=== PATIENT | male | born 1960 | race Caucasian/White ===

== ENCOUNTER → 2020-12-08 14:57 | Outpatient (CLI) | payer MEDICARE, MEDICAID, SELFPAY ==
--- NOTE | 2020-12-08 14:58 | CT_ITS ---
PROCEDURE: CT SOFT TISSUE NECK WO CON CLINICAL HISTORY: swollen neck Lt sided neck swelling and redness Hx of throat cancer back in 2010 COMPARISON: No exams were available for comparison TECHNIQUE: Oral Contrast: None IV Contrast: None Axial images obtained with sagittal and coronal reformats. All CT scans at the facility use one or more dose reduction, viz: automated exposure control, ma/kV adjustment per patient size (including targeted exams where dose is matched to indication, i.e. head), or iterative reconstruction technique. FINDINGS: There are no previous exams available for comparison. History is given of having prior throat cancer. The nasopharynx has an unremarkable appearance. Surgical clips are present in the left parapharyngeal region there is a small nodular density in the left parapharyngeal area medial to 1 of the clips. This area measures approximately 9 mm and is in the region of the left submandibular bed. It appears that the submandibular gland on the left has been removed. The epiglottis and glottic region have an unremarkable appearance. Subglottic area also appears unremarkable. Numerous small surgical clips are present in the left neck lateral to the cricoid and thyroid cartilage within left sternocleidomastoid region and lateral to the thyroid gland on the left. There is defect within the subcutaneous tissues in the left neck from the previous surgery. There are few scattered small cervical nodes within the neck. IMPRESSION: Evaluation of the neck is somewhat limited without IV contrast and without the value of old films for comparison. There are postsurgical changes with prior submandibular gland removal on the left. There is some minimal nodularity noted in the submandibular bed which could be due to small lymph node or some scarring. Comparison with old films would be helpful for further determination. Would suggest 3 month follow-up without and with contrast. No evidence of abscess or other significant anomaly. No other significant anomalies are evident. Dictated by: Emiliano Juarez MD 12/09/2020 11:31 Emiliano Juarez MD in [place] 12/09/2020 11:31
== END ==
PROVIDERS: PCP Family Medicine; Visit Provider Family Medicine
DX: R13.10 Dysphagia, unspecified (principal); R22.1 Localized swelling, mass and lump, neck
CPT/HCPCS: 70490

== ENCOUNTER 2020-12-14 11:42 | Day surgery (SDC) | payer MEDICARE, MEDICAID, SELFPAY ==
[2020-12-11 14:54] VITALS: BMI 41.0
[2020-12-14 12:55] LABS: Coronavirus 19 IgG Antibody Negative (Negative); Coronavirus 19 IgM Antibody Negative (Negative)
[2020-12-14 13:28] VITALS: BP 121/71; PULSE 74; RESP 18; TEMP 36.2; O2SAT 97
[2020-12-14 13:54] VITALS: O2SAT 97
--- NOTE | 2020-12-14 13:55 | P.PN_ITS ---
[facility] Anesthesia Checklist - Patient Identification Patient Identification: Arm Band - Structural Data Planned Operative Procedure/s: EGD Consent for Planned Operative Procedure(s) Verified: Yes - Cardiovascular Assessment Heart Sounds: S1 & S2 Pulse Strength: Baseline Pulse Rhythm: Regular Peripheral Edema: No - Neurological Assessment Level of Consciousness: Awake - Anesthesia Plan Anesthesia Risk discussed: Yes Anesthesia Plan: Verified ASA Class: II Anesthesia Type: MAC [facility] History I have reviewed the patient's past medical history: Yes Medical History: Reports:: Cancer (throat), Chronic Obstructive Pulmonary Disease (COPD), Gall Bladder Disease, Hyperlipidemia, Hypertension Denies:: Diabetes Mellitus Type 1, Diabetes Mellitus Type 2, Internal Pacemaker, MRSA, Seizures *Have you ever received a pneumonia vaccine?: No *Have you received a flu vaccine this season?: Yes Other Medical History: Reports: Arthritis Anesthesia experience/problems:: Nausea Other Surgeries: Yes: Appendectomy, Cancer Surgery. No: Pacemaker Amputation: No Fractures: No - *Social History Smoking Status: Never smoker Alcohol Intake: never Substance Use Type: denies use *Occupational Status:: disabled Housing: house *Travel in the last 8 weeks: None Family Hx:: No significant family history
--- NOTE | 2020-12-14 14:49 | HMH.PROC ---
[facility] Procedure Note Procedure Note:: Upper Endoscopy Procedure Report: Esophagogastroduodenoscopy with cold snare polypectomy, cold biopsies and TTS balloon dilation Endoscopost: Fahad Curry II, MD Referring Physician: Ismael Sheridan MD Date of Procedure: December 14, 2020 Equipment: Olympus GIF 190 standard upper endoscope Sedation: MAC sedation Indications: Mr. Barnett is a 60-year-old gentleman with throat tightness, globus sensation and some dysphagia. The patient did have stage III throat cancer and had 21 radiation treatments. He feels tightness on the left side of his throat. He also has had dyspepsia with some epigastric abdominal discomfort, bloating and moderate belching. He reports heartburn and reflux. His symptoms have not been controlled with pantoprazole or other PPI therapy. He does report some early satiety but no nausea. He has been taking a number of antacids (including Tums) and has had some intermittent constipation. EGD is performed for further evaluation. Procedure: Prior to the procedure, a history and physical exam was performed, and patient's medications and allergies were reviewed. The risks, benefits and alternatives of the sedation and procedure were discussed with the patient. All questions were answered and informed consent was obtained. The patient was brought to the procedure room. Patient identification and proposed procedure were verified by the physician and the nurse. The patient was placed in a left lateral decubitus position and the scope was passed under direct vision. Throughout the procedure, the patient's blood pressure, pulse, and oxygen saturations were monitored continuously. The upper GI endoscopy was accomplished without difficulty. The patient tolerated the procedure well. Findings: The scope was passed directly into the upper esophagus and advanced to the third portion of the duodenum. Within the second portion of the duodenum was a 6 mm flat polyp that was contralateral to the ampulla in the second portion and this was removed via cold snare polypectomy. The scope was withdrawn through a normal duodenal bulb and pylorus into the stomach. There was bile reflux with linear reactive gastropathy of the antrum and body of the stomach. The remainder of the upper body and fundus of the stomach were grossly normal. Upon retroflexion there was a small 1 to 2 cm hiatal hernia. 2 biopsies were taken in the antrum and along the lesser curvature for histology to rule out gastritis and/or H pylori. The scope was then withdrawn into the esophagus. There was 2 tongues of salmon-colored mucosa that were biopsied to rule out short segment Manuel's esophagus. There was no evidence of reflux esophagitis or strictures. There were strong tertiary contractions and evidence of moderate esophageal dysmotility. The entire esophagus was dilated to 60 Peruvian/20 mm with a TTS hydrostatic balloon. There was mild resistance at the cricopharyngeus (cricopharyngeal spasm). The remainder of the esophageal mucosa was normal. Impression: 1. Cricopharyngeal spasm status post dilation to 20 mm 2. Nonerosive GERD with possible short segment Manuel's esophagus, esophageal dysmotility and small 1 to 2 cm hiatal hernia 3. Duodenal polyp (6 mm and second portion of duodenum contralateral to ampulla) 4. Bile reflux with moderate linear reactive gastropathy Plan: I will follow-up the biopsies. The patient does have functional GERD with esophageal dyskinesia and cricopharyngeal spasm. We will discuss additional dietary measures and treatment options. The patient also has some functional dyspepsia. He may benefit from treatment of his obstipation and possibly promotility therapy versus treatment for visceral sensitivity. Lastly, if the biopsies do show Manuel's esophagus or the duodenal polyp is adenomatous, we will need to continue with surveillance EGD again in 2 years.
[2020-12-14 14:50] VITALS: BP 98/59; PULSE 76; RESP 12; TEMP 36.2; O2SAT 92
[2020-12-14 15:00] VITALS: BP 106/68; PULSE 79; RESP 16; O2SAT 96
[2020-12-14 15:10] VITALS: BP 122/68; PULSE 77; RESP 16; O2SAT 97
[2020-12-14 15:20] VITALS: BP 115/70; PULSE 69; RESP 16; TEMP 36.2; O2SAT 98
== END 2020-12-14 15:26 | disposition home or self-care (01) ==
LOC: OUTP 11:43
PROVIDERS: PCP Family Medicine; Visit Provider Internal Medicine Gastroenterology
PROC: 0DJ08ZZ Inspection of Upper Intestinal Tract, Via Natural or Artificial Opening Endoscopic (ICD-10-PCS; CPT 43235; principal; 2020-12-14 14:00)
DX: J39.2 Other diseases of pharynx (principal); K21.9 Gastro-esophageal reflux disease without esophagitis; K22.4 Dyskinesia of esophagus; K44.9 Diaphragmatic hernia without obstruction or gangrene; K31.7 Polyp of stomach and duodenum; K31.9 Disease of stomach and duodenum, unspecified; I10 Essential (primary) hypertension; E78.5 Hyperlipidemia, unspecified; M19.90 Unspecified osteoarthritis, unspecified site; Z85.01 Personal history of malignant neoplasm of esophagus; J44.9 Chronic obstructive pulmonary disease, unspecified; Z87.19 Personal history of other diseases of the digestive system
CPT/HCPCS: 43239; 43249; 43251; 36415; 86328; 88305; C1726

== ENCOUNTER → 2021-11-08 12:36 | Outpatient (CLI) | payer MEDICARE, MEDICAID, SELFPAY ==
--- NOTE | 2021-11-08 12:53 | CT_ITS ---
FINAL REPORT TECHNIQUE: Thin section axial CT images were obtained through the neck after intravenous contrast administration. Coronal and sagittal reformats were also obtained. This study was performed with techniques to keep radiation doses as low as reasonably achievable (ALARA). Individualized dose reduction techniques using automated exposure control or adjustment of mA and/or kV according to the patient''s size were employed. CLINICAL HISTORY: hx of throat cancer COMPARISON: December 08, 2020 FINDINGS: The nasopharynx, oropharynx, hypopharynx and larynx are unremarkable. Again seen are postoperative changes in the left neck. The left submandibular gland has been resected. Small lymph nodes are seen and are stable. There is no new mass or adenopathy. The thyroid gland is unremarkable. The visualized sinuses are clear. There is no acute osseous abnormality. IMPRESSION: Stable findings. No new mass or adenopathy. Reviewed, Interpreted and Dictated by Freddie Carvajal III, MD Transcribed by Young Parmar Authenticated by Freddie Carvajal III, MD on 11/09/2021 09:31:39 AM [facility]
[2021-11-08 13:09] LABS: Anion Gap 10.6 mEq/L (5-15); Blood Urea Nitrogen 16 mg/dl (9-20); Calcium 8.8 mg/dl (8.4-10.2); Carbon Dioxide 33 mmol/L (22.0-30.0); Chloride 100 mmol/L (98-107); Estimated Glomerular Filt Rate 62 ml/min (>60); GFR (African American) 75 ML/MIN (>60); Glucose 93 mg/dl (74-100); Potassium 3.6 mmoL/L (3.5-5.1); Sodium 140 mmol/L (136-145)
== END ==
PROVIDERS: PCP Family Medicine; Visit Provider Family Medicine
DX: Z01.818 Encounter for other preprocedural examination (principal); M54.2 Cervicalgia; Z85.89 Personal history of malignant neoplasm of other organs and systems
CPT/HCPCS: 36415; 70491; 80048; Q9967

== ENCOUNTER → 2022-05-30 07:00 | Outpatient (CLI) | payer MEDICARE, MEDICAID, SELFPAY ==
[2022-05-30 21:00] LABS: Amphetamine/Metha Screen,Urine Negative ng/ml (<1000)
[2022-05-30 21:02] LABS: Barbiturates Screen,Urine Negative ng/ml (<200)
[2022-05-30 21:03] LABS: Benzodiazepines Screen,Urine Negative ng/ml (<200)
[2022-05-30 21:04] LABS: Cocaine Screen,Urine Negative ng/ml (<300)
[2022-05-30 21:05] LABS: Methadone Screen,Urine Negative ng/ml (<300)
[2022-05-30 21:06] LABS: Opiate Screen,Urine Negative ng/ml (<300); Phencyclidine Screen,Urine Negative ng/ml (<25)
[2022-05-30 21:49] LABS: Cannabinoid Screen,Urine Positive ng/ml (<50)
== END ==
PROVIDERS: PCP Family Medicine; Visit Provider Family Medicine
DX: M54.2 Cervicalgia (principal)
CPT/HCPCS: 80305

== ENCOUNTER 2022-07-04 12:17 | Emergency (ER) | payer MEDICARE, MEDICAID, SELFPAY ==
[2022-07-04] VITALS (7 sets, daily range): BP systolic 112–166; BP diastolic 64–94; PULSE 56–70; RESP 18; TEMP 36.7–36.8; O2SAT 98–99; BMI 39.2
--- NOTE | 2022-07-04 12:19 | HMH.EDGENADL ---
Discharge Plan Disposition Patient Disposition: Home, Self-Care Condition: Good Chief Complaint: Abdominal Pain Prescriptions Prescriptions: No Action aspirin [Adult Aspirin Regimen] 81 mg tablet,delayed release (DR/EC) 81 mg PO DAILY hydrochlorothiazide 25 mg tablet 25 mg PO DAILY Qty: 90 3RF pantoprazole 40 mg tablet,delayed release (DR/EC) 40 mg PO DAILY Qty: 90 3RF amlodipine 5 mg tablet 5 mg PO DAILY Qty: 90 3RF Linzess 145 mcg capsule 145 mcg PO DAILY Qty: 90 3RF furosemide 40 mg tablet 40 mg PO DAILY PRN (Reason: edema) Qty: 90 3RF potassium chloride 10 mEq tablet extended release 10 meq PO DAILY Qty: 60 0RF lisinopril 40 mg tablet See Rx Instructions .ROUTE .COMPLEX Qty: 180 3RF Dose Instruction: TAKE TWO TABLETS DAILY Rx Instructions: TAKE TWO TABLETS DAILY metoclopramide HCl 10 mg tablet 10 mg PO HS Qty: 90 3RF hydrocodone-acetaminophen 7.5-325 mg tablet 1 tab PO BID PRN (Reason: pain) Qty: 60 0RF metoprolol tartrate 100 mg tablet See Rx Instructions .ROUTE .COMPLEX Qty: 180 3RF Dose Instruction: TAKE 1 TABLET BY MOUTH 2 TIMES A DAY Rx Instructions: TAKE 1 TABLET BY MOUTH 2 TIMES A DAY atorvastatin 40 mg tablet See Rx Instructions .ROUTE .COMPLEX Qty: 90 3RF Dose Instruction: TAKE 1 TABLET BY MOUTH EVERY DAY Rx Instructions: TAKE 1 TABLET BY MOUTH EVERY DAY Referrals Follow up/Referrals: Pee Sheridan MD [Primary Care Provider] - See instructions Clinical Impressions Clinical Impression: Abdominal pain Instructions Patient Instructions: DI for Acute Abdominal Pain Discharge ED Provider: Riki Kent Adult HPI General Chief complaint: Abdominal Pain Stated complaint: Severe abdominal pain Time Seen by Provider: 07/04/22 12:19 History of Present Illness HPI narrative: 62-year-old male, history of abdominal pain, Manuel's esophagus he reports 1 episode of bowel obstruction for which he was hospitalized previously. He has had prior cholecystectomy, denies any other abdominal surgeries. He presents with diffuse abdominal pain most notable in the periumbilical region. He saw his PCP earlier today and also relates symptoms of constipation, and excessive gas. He was sent to the emergency department by PCP for further evaluation and recommended CT scan. He denies fevers, chills, nausea, vomiting, flank pain, dysuria, diarrhea, melena or hematochezia or any other symptoms at this time he is on Linzess routinely and has not noticed improvement Related Data Home Medications Medication Instructions Recorded Confirmed aspirin 81 mg tablet,delayed 81 mg PO DAILY heart 03/30/20 07/04/22 release (Adult Aspirin Regimen) Previous Rx's Medication Instructions Recorded furosemide 40 mg tablet 40 mg PO DAILY PRN edema #90 tabs 09/01/21 potassium chloride 10 mEq 10 meq PO DAILY Supplement #60 tabs 09/01/21 tablet,extended release amlodipine 5 mg tablet 5 mg PO DAILY #90 tabs 10/22/21 hydrochlorothiazide 25 mg tablet 25 mg PO DAILY Fluid #90 tabs 11/22/21 pantoprazole 40 mg tablet,delayed 40 mg PO DAILY GERD #90 tabs 11/22/21 release lisinopril 40 mg tablet See Rx Instructions .Route 11/23/21 .COMPLEX #180 tabs metoclopramide HCl 10 mg tablet 10 mg PO HS #90 tabs 12/28/21 hydrocodone 7.5 mg-acetaminophen 1 tab PO BID PRN pain #60 tabs 05/23/22 325 mg tablet linaclotide 145 mcg capsule 145 mcg PO DAILY #90 caps 05/23/22 (Linzess) atorvastatin 40 mg tablet See Rx Instructions .Route 07/04/22 .COMPLEX #90 tabs metoprolol tartrate 100 mg tablet See Rx Instructions .Route 07/04/22 .COMPLEX #180 tabs Allergies Allergy/AdvReac Type Severity Reaction Status Date / Time No Known Allergies Allergy Verified 07/04/22 11:07 [facility] Medical History Back pain Chronic pain Erosive (osteo)arthritis History of head an
[2022-07-04 12:27] LABS: Microscopic, Urine URINE MICROSCOPIC (MICROSCOPIC)
[2022-07-04 12:28] LABS: Appearance,Urine CLEAR (Clear); Bilirubin,Urine Negative (Negative); Blood, Urine Negative (Negative); Color,Urine YELLOW (Yellow); Glucose,Urine (UA) Negative (Negative); Ketones,Urine Negative (Negative); Leukocyte Esterase,Urine Negative (Negative); Nitrate,Urine Negative (Negative); Protein,Urine Negative (Negative); Specific Gravity, Urine 1.025 (1.005-1.030); Urobilinogen,Urine 0.2 EU/dl (0.2)
--- NOTE | 2022-07-04 12:28 | CT_ITS ---
FINAL REPORT TECHNIQUE: Oral and IV contrast enhanced exam CLINICAL HISTORY: post-op pain, epi gastric pain hx of throat cancer FINDINGS: Abdomen: No acute density is seen within the lung bases. 13 mm posterior left mid renal cyst. Status post cholecystectomy. Remaining solid abdominal organs are unremarkable. No bowel obstruction is present. Mild diverticulosis. There is no free air. No fluid collection is seen. There is no adenopathy. Pelvis: The appendix is normal. No bowel wall thickening is present. There is no free fluid. No pelvic mass is seen. Moderate prostate enlargement. IMPRESSION: Unremarkable exam Reviewed, Interpreted and Dictated by Corie Guerra MD Transcribed by Young Parmar Authenticated and [facility]
[2022-07-04 12:42] LABS: Basophils # 0.1 K/mm3 (0-0.2); Basophils % 0.8 % (0.1-2.0); Eosinophils # 0.2 K/mm3 (0.0-0.4); Eosinophils % 3.6 % (0.1-12.0); Hematocrit 46.2 % (42.0-52.0); Hemoglobin 15.5 g/dL (14.1-18.0); Lymphocytes # 1.6 K/mm3 (0.7-4.5); Lymphocytes % 24.2 % (10-50); Mean Corpuscular HGB Conc 33.4 g/dL (31.8-35.4); Mean Corpuscular Hemoglobin 29.3 pg (27.0-31.2); Mean Corpuscular Volume 87.7 fl (80-94); Monocytes # 0.4 K/mm3 (0.1-1.0); Monocytes % 5.6 % (1.7-9.3); Neutrophils # 4.4 K/mm3 (1.8-7.8); Neutrophils % 65.6 % (37.0-80.0); Platelet Count 231 K/mm3 (142-424); Red Blood Count 5.27 M/mm3 (4.60-6.20); White Blood Count 6.7 K/mm3 (4.8-10.8)
[2022-07-04 12:42] LABS: Bacteria,Urine Trace /lpf
[2022-07-04 12:51] LABS: Chloride 102 mmol/L (98-107); Potassium 4.1 mmoL/L (3.5-5.1); Sodium 141 mmol/L (136-145)
[2022-07-04 12:54] LABS: Alanine Aminotransferase 31 U/L (12-78); Albumin Level 4.4 g/dl (3.5-5.0); Albumin/Globulin Ratio 1.4 (1.1-1.8); Alkaline Phosphatase 126 U/L (38-126); Anion Gap 11.1 mEq/L (5-15); Aspartate Amino Transferase 42 U/L (17-59); Bilirubin,Total 0.6 mg/dl (0.2-1.3); Blood Urea Nitrogen 17 mg/dl (9-20); Calcium 9.2 mg/dl (8.4-10.2); Carbon Dioxide 32 mmol/L (22.0-30.0); Estimated Glomerular Filt Rate 56 ml/min (>60); GFR (African American) 68 ML/MIN (>60); Globulin 3.1 g/dL (1.3-3.2); Glucose 96 mg/dl (74-100); Lipase 76 U/L (23-300); Total Protein,Serum 7.5 g/dl (6.3-8.2)
--- NOTE | 2022-07-04 13:17 | PC.NURSE ---
PT TO CT AT THIS TIME
--- NOTE | 2022-07-04 13:28 | PC.NURSE ---
Pt return from CT via wheelchair
--- NOTE | 2022-07-04 13:32 | PC.NURSE ---
checked on pt at this time, pt requested TV remote-remote provided for pt. Pt sitting up in bed, states no other needs. Call light hooked to bedrail within reach of pt, pt notified where I was placing his call light if he needed it.
--- NOTE | 2022-07-04 14:19 | PC.NURSE ---
AT GOING OVER RESULTS
== END 2022-07-04 14:25 | disposition home or self-care (01) ==
PROVIDERS: Emergency Provider Emergency Medicine; PCP Family Medicine
DX: K59.00 Constipation, unspecified (principal); I10 Essential (primary) hypertension; M54.9 Dorsalgia, unspecified; G89.29 Other chronic pain; M19.90 Unspecified osteoarthritis, unspecified site; K22.70 Barrett's esophagus without dysplasia; E66.9 Obesity, unspecified; Z79.82 Long term (current) use of aspirin; Z79.899 Other long term (current) drug therapy; Z85.841 Personal history of malignant neoplasm of brain; Z85.89 Personal history of malignant neoplasm of other organs and systems; Z68.35 Body mass index [BMI] 35.0-35.9, adult; Z96.652 Presence of left artificial knee joint
CPT/HCPCS: 74177; 80053; 81001; 83690; 85025; 99285; Q9967

== ENCOUNTER → 2023-01-09 08:26 | Outpatient (POV) | payer MEDICARE, MEDICAID, SELFPAY ==
--- NOTE | 2023-01-09 08:40 | EXP.PAIN.OV ---
HPI Data of Consult Patient: new to practice Consult date: 01/09/23 Requesting Physician: Dianne Ricardo APRN Primary Care Provider: Pee Sheridan MD Consult Narrative Reason for consult: Low back pain, bilateral knee pain History of present illness: Mr. Barnett is a 62 year old male who presents today as a new patient. He is a referral from Dr. Sheridan's office. Today he rates his pain an 8 out of 10. Patient states his pain is all in his low back with radiating symptoms into his lower extremities with the right worse than the left. He also states he has pain along his bilateral ribs at the mid to low back region. He also states he has bilateral knee pain and has had his left knee replaced in the past. Patient does describe his pains as an aching, throbbing sensation with sharp jabbing sensations with certain movements. Patient states this has been going on for years and progressively worsened over time. 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 He does also state that his pain is worse with increased activity and that he will have catching sensations with certain movements that can actually almost make him fall. He does state his pain interferes with his ability to sleep at night. He frequently changes multiple positions to help relieve the knot sensations that are common at night. Patient denies any recent imaging. He states he has not had any back surgery, injection history, physical therapy or chiropractor. Patient has tried [id number] Tylenol and ibuprofen along with heat and ice and topicals with no additional relief. Patient is currently managed with Carlotta 7.5 mg twice a day from his primary care doctor. Patient denies any side effects from this medication. He states it only takes the edge off. His Ruebns is [id number]. Its been reviewed and appropriate. CC: Dianne Ricardo APRN [facility] Disclaimer: The information contained in this section may have been updated after the patient was seen, as this information can be updated by other users. Medical History Back pain Chronic pain Erosive (osteo)arthritis History of head and neck cancer Hypertension Obesity (BMI 35.0-39.9 without comorbidity) Social History Smoking Status: Never smoker second hand exposure: Yes alcohol intake: former substance use type: marijuana current occupational status: disabled Travel in the last 8 weeks: None household members: none housing: apartment current occupational exposures/hazards: No caffeine: Yes Review of Systems Review of Systems Review of systems:: pertinent systems reviewed and negative unless documented below Review of systems (narrative): Review of Systems: General: No recent weight changes, no fever, no sleep disturbances Respiratory: No cough, no shortness of air, no recurring pulmonary infections Cardiovascular/peripheral vascular: No chest pain, no palpitations, no edema, no shortness of breath Gastrointestinal: No new onset incontinence, normal bowel movements reported Genitourinary: No new onset incontinence Musculoskeletal: Low back pain, bilateral knee pain Psychiatric: [Normal mood/affect] Neurological: [Denies weakness in extremities], [denies balance issues] Meds Home Medications and Allergies Home Medications Medication Instructions Recorded Confirmed Type aspirin 81 mg tablet,delayed 81 mg PO DAILY heart 03/30/20 01/03/23 History release (Adult Aspirin Regimen) furosemide 40 mg tablet 40 mg PO DAILY PRN edema #90 tabs 09/01/21 01/03/23 Rx potassium chloride 10 mEq 10 meq PO DAILY Supplement #60 tabs 09/01/21 01/03/23 Rx tablet,extended release linaclotide 145 mcg capsule 145 mcg PO DAILY #90 caps 05/23/22 01/03/23 Rx (Linzess) atorvastatin 40 mg tablet See Rx Instructions .
[2023-01-09 08:51] VITALS: BP 152/83; PULSE 65; RESP 18; O2SAT 97; BMI 41.3
== END | disposition home or self-care (01) ==
PROVIDERS: PCP Family Medicine; Visit Provider Nurse Practitioner Family
DX: M54.16 Radiculopathy, lumbar region (principal); M54.50 Low back pain, unspecified; M25.561 Pain in right knee; M25.562 Pain in left knee; G89.29 Other chronic pain
CPT/HCPCS: 99202; G0463

== ENCOUNTER → 2023-01-09 09:08 | Outpatient (CLI) | payer MEDICARE, MEDICAID, SELFPAY ==
--- NOTE | 2023-01-09 09:18 | XR_ITS ---
FINAL REPORT TECHNIQUE: 5 views were obtained. CLINICAL HISTORY: BACK PAIN FINDINGS: There is no fracture present. Vertebral bodies are normal height. There is no malalignment. There is anterior osteophyte formation most evident at the T12-L1, L1-L2, and L3-L4 levels. IMPRESSION: No acute process. Reviewed, Interpreted and Dictated by Robert Herrera MD Transcribed by Sally Read Authenticated and [facility]
--- NOTE | 2023-01-09 09:18 | XR_ITS ---
FINAL REPORT TECHNIQUE: Two views were obtained CLINICAL HISTORY: BACK PAIN FINDINGS: There is no fracture present. Vertebrae are normal height. There is no malalignment. There is prominent anterior osteophyte formation in the midthoracic spine. IMPRESSION: Hypertrophic changes in the midthoracic spine. Reviewed, Interpreted and Dictated by Robert Herrera MD Transcribed by Sally Read Authenticated and [facility]
== END ==
PROVIDERS: PCP Family Medicine; Visit Provider Anesthesiology
DX: M54.6 Pain in thoracic spine (principal); M54.50 Low back pain, unspecified
CPT/HCPCS: 72072; 72110; 99202; G0463

== ENCOUNTER → 2023-02-09 20:16 | Outpatient (CLI) | payer MEDICARE, MEDICAID, SELFPAY ==
[2023-02-09 19:10] LABS: Basophils % 0.3 % (0.1-2.0); Eosinophils # 0.6 K/mm3 (0.0-0.4); Eosinophils % 5.9 % (0.1-12.0); Hematocrit 43.2 % (42.0-52.0); Hemoglobin 14.5 g/dL (14.1-18.0); Lymphocytes # 1.8 K/mm3 (0.7-4.5); Lymphocytes % 19.2 % (10-50); Mean Corpuscular HGB Conc 33.6 g/dL (31.8-35.4); Mean Corpuscular Volume 86.3 fl (80-94); Mean Platelet Volume 8.5 fl (7.4-10.4); Monocytes # 0.6 K/mm3 (0.1-1.0); Monocytes % 6.7 % (1.7-9.3); Neutrophils # 6.5 K/mm3 (1.8-7.8); Neutrophils % 67.9 % (37.0-80.0); Platelet Count 210 K/mm3 (142-424); White Blood Count 9.5 K/mm3 (4.8-10.8)
[2023-02-09 19:29] LABS: Chloride 97 mmol/L (98-107)
[2023-02-09 19:30] LABS: Potassium 3.2 mmoL/L (3.5-5.1); Sodium 141 mmol/L (136-145)
[2023-02-09 19:32] LABS: Alanine Aminotransferase 42 U/L (12-78); Alkaline Phosphatase 112 U/L (38-126); Aspartate Amino Transferase 40 U/L (17-59); Bilirubin,Total 0.6 mg/dl (0.2-1.3); Blood Urea Nitrogen 20 mg/dl (9-20); Estimated Glomerular Filt Rate 51 ml/min (>60); GFR (African American) 62 ML/MIN (>60)
[2023-02-09 19:33] LABS: Albumin Level 4.4 g/dl (3.5-5.0); Albumin/Globulin Ratio 1.6 (1.1-1.8); Anion Gap 13.2 mEq/L (5-15); Calcium 9.3 mg/dl (8.4-10.2); Carbon Dioxide 34 mmol/L (22.0-30.0); Globulin 2.7 g/dL (1.3-3.2); Glucose 78 mg/dl (74-100); Total Protein,Serum 7.1 g/dl (6.3-8.2)
[2023-02-09 21:01] LABS: Prostate Specific Ag Screen 4.2 ng/ml (0.0-4.0)
== END ==
PROVIDERS: PCP Family Medicine; Visit Provider Family Medicine
DX: Z12.5 Encounter for screening for malignant neoplasm of prostate (principal); G89.29 Other chronic pain; M54.40 Lumbago with sciatica, unspecified side; N28.9 Disorder of kidney and ureter, unspecified
CPT/HCPCS: 80053; 85025; G0103

== ENCOUNTER → 2023-02-10 08:57 | Outpatient (POV) | payer MEDICARE, MEDICAID, SELFPAY ==
--- NOTE | 2023-02-10 09:12 | A.OFFVIS_ITS ---
[facility] Pain Management SOAP Note Subjective:: Patient is a pleasant 63-year-old male who presents today for MRI denial. We are currently treating the patient for mid/low back pain, bilateral knee pain. Today he rates his pain a 9 out of 10. Patient states that he has been experiencing worsening pain and that he went to his primary care doctor who did run labs and found that he had elevated liver enzymes. Patient states that he did try and get him in a GI practice however it has been almost a month and he still not heard anything. Patient states he did go back to his primary care yesterday who did send a new referral for another GI doctor in [place]. Patient does state that he has been experiencing continued pain in his mid to low back and radiating into his lower extremities. Patient does describe this as a aching, throbbing sensation with occasional sharp shooting pains. He is currently managed with [place] 7.5 mg twice a day from his primary care doctor. Patient denies any side effects from this medication. At our last visit he was prescribed tizanidine 4 mg at bedtime and he does state that it did provide additional improvement. He is requesting a refill at today's visit. His Rubens is [phone]. Its been reviewed and appropriate. Review of Systems: General: No recent weight changes, no fever, no sleep disturbances Respiratory: No cough, no shortness of air, no recurring pulmonary infections Cardiovascular/peripheral vascular: No chest pain, no palpitations, no edema, no shortness of breath Gastrointestinal: No new onset incontinence, normal bowel movements reported Genitourinary: No new onset incontinence Musculoskeletal: Mid/low back pain Psychiatric: [Normal mood/affect] Neurological: [Denies weakness in extremities], [denies balance issues] Objective:: Physical Exam: General: Alert and oriented x3, no acute distress, pleasant and cooperative Lungs: Respirations even and unlabored, symmetrical chest expansion Eyes: PERRL Musculoskeletal: Flexion and extension of thoracic, lumbar [spine] somewhat guarded secondary to pain, [antalgic gait noted] Neurological: Speech clear, no gross sensory deficit Assessment:: Mid/low back pain with lumbar radiculopathy symptoms, bilateral knee pain Plan:: Patient continues to experience significant pain in his mid to low back however insurance denied additional imaging due to lack of physical therapy. I will order PT today and also refill his tizanidine 4 mg at bedtime and provide a 1 month supply of this medication. Patient will also be ordered compounding cream. He will return to clinic in 1 month for reevaluation of symptoms and plan of care. Patient has been instructed to contact the clinic with any concerns before the next appointment. Dr. Garcia has reviewed this note and agrees with this plan of care. This note was dictated using voice recognition software and make contain errors or omissions. [facility] Disclaimer: The information contained in this section may have been updated after the patient was seen, as this information can be updated by other users. Medical History Back pain Chronic pain Erosive (osteo)arthritis History of head and neck cancer Hypertension Obesity (BMI 35.0-39.9 without comorbidity) Social History Smoking Status: Never smoker second hand exposure: Yes alcohol intake: former substance use type: marijuana current occupational status: disabled Travel in the last 8 weeks: None household members: none housing: apartment current occupational exposures/hazards: No caff
[2023-02-10 09:15] VITALS: BP 146/83; PULSE 72; RESP 18; O2SAT 98; BMI 41.5
== END | disposition home or self-care (01) ==
PROVIDERS: PCP Family Medicine; Visit Provider Nurse Practitioner Family
DX: M54.16 Radiculopathy, lumbar region (principal); M54.50 Low back pain, unspecified; M25.561 Pain in right knee; M25.562 Pain in left knee
CPT/HCPCS: 99212; G0463

== ENCOUNTER → 2023-04-24 09:14 | Outpatient (POV) | payer MEDICARE, MEDICAID, SELFPAY ==
[2023-04-24 09:27] VITALS: BP 141/84; PULSE 74; RESP 18; O2SAT 95; BMI 41.0
--- NOTE | 2023-04-24 09:37 | EXP.PAIN.SOA ---
[facility] Pain Management SOAP Note Subjective:: Patient is a pleasant 63-year-old male who presents today for follow-up. We are currently treating the patient for low back pain, mid back pain, bilateral knee pain. Today he rates his pain an 8 out of 10. Patient states he has been going to physical therapy and done 6 sessions however it is causing worsening low back pain. Patient denies any new trauma or injury. He denies any change to location or type of pain he experiences. He does describe this as an aching, throbbing sensation with occasional sharp shooting pain that does interfere with his ability to perform activities of daily living such as cooking and cleaning. This has been going on for quite some time and he would like to have additional imaging. Previously we were denied MRI due to lack of physical therapy. Patient is currently managed with [place] 7.5 mg twice a day and tizanidine 4 mg at bedtime from his primary care doctor. Patient denies any side effects from this medication. His Rubens is [id number]. Its been reviewed and appropriate. Review of Systems: General: No recent weight changes, no fever, no sleep disturbances Respiratory: No cough, no shortness of air, no recurring pulmonary infections Cardiovascular/peripheral vascular: No chest pain, no palpitations, no edema, no shortness of breath Gastrointestinal: No new onset incontinence, normal bowel movements reported Genitourinary: No new onset incontinence Musculoskeletal: Low back pain Psychiatric: [Normal mood/affect] Neurological: [Denies weakness in extremities], [denies balance issues] Objective:: Physical Exam: General: Alert and oriented x3, no acute distress, pleasant and cooperative Lungs: Respirations even and unlabored, symmetrical chest expansion Eyes: PERRL Musculoskeletal: Flexion and extension of lumbar [spine] somewhat guarded secondary to pain, [antalgic gait noted] Neurological: Speech clear, no gross sensory deficit Assessment:: Low back pain, mid back pain, bilateral knee pain Plan:: Patient continues to experience significant pain in his low back with radiating symptoms into his legs. Patient does have limited range of motion of his lumbar spine during today's visit. Patient has tried and failed conservative therapy such as oral medications, heat and ice, topicals, physical therapy, at home stretching and exercise for longer than 6 weeks. I will resubmit for a lumbar MRI without contrast and we will contact the patient once we have approval. Patient would like to request an open MRI if possible. Patient will return to clinic in 1 month following his imaging for reevaluation of symptoms and plan of care. Patient's future care will be dependent on lumbar MRI findings. Patient will most likely benefit from lumbar epidural steroid injection however this cannot be determined at this time with lack of imaging. Patient has been instructed to contact the clinic with any concerns before the next appointment. Dr. Garcia has reviewed this note and agrees with this plan of care. This note was dictated using voice recognition software and make contain errors or omissions. [facility] Disclaimer: The information contained in this section may have been updated after the patient was seen, as this information can be updated by other users. Medical History Back pain Chronic pain Erosive (osteo)arthritis History of head and neck cancer Hypertension Obesity (BMI 35.0-39.9 without comorbidity) Social History Smoking Status: Never smoker second hand exposure: Yes alcohol intake: former substance use type: marijuana current occupational status: disabled Travel in the last 8 weeks: None household members: none housing: apartment current occupational exposures/hazards: No caffeine: Yes
== END ==
LOC: SC.PAIN 09:15
PROVIDERS: PCP Family Medicine; Visit Provider Nurse Practitioner Family
DX: M54.50 Low back pain, unspecified (principal); M54.6 Pain in thoracic spine; M25.561 Pain in right knee; M25.562 Pain in left knee
CPT/HCPCS: 99212; G0463

== ENCOUNTER → 2023-05-25 09:02 | Outpatient (POV) | payer MEDICARE, MEDICAID, SELFPAY ==
[2023-05-25 09:06] VITALS: BP 152/92; PULSE 67; RESP 18; O2SAT 96; BMI 41.0
--- NOTE | 2023-05-25 09:18 | EXP.PAIN.SOA ---
[facility] Pain Management SOAP Note Subjective:: Patient is a pleasant 63-year-old male who presents today for follow-up of MRI imaging. We are currently treating the patient for low back pain, mid back pain, bilateral knee pain. Today he rates his pain an 8 out of 10. Patient denies any new trauma or injury. He denies any change location or type of pain he experiences. He does state that he continues to have low back pain and describes it as an aching, throbbing sensation. He does state the pain is worse with certain movements such as bending, twisting or lifting. He does state the pain interferes with his ability perform activities of daily living such as cooking and cleaning. Patient has tried [id number] medications along with heat and ice and topicals and physical therapy with no additional relief. He is currently prescribed [place] 7.5 mg twice a day and tizanidine 4 mg at bedtime from his PCP. His Rubens is [id number]. Its been reviewed and appropriate. Review of Systems: General: No recent weight changes, no fever, no sleep disturbances Respiratory: No cough, no shortness of air, no recurring pulmonary infections Cardiovascular/peripheral vascular: No chest pain, no palpitations, no edema, no shortness of breath Gastrointestinal: No new onset incontinence, normal bowel movements reported Genitourinary: No new onset incontinence Musculoskeletal: Low back pain Psychiatric: [Normal mood/affect] Neurological: [Denies weakness in extremities], [denies balance issues] Objective:: Physical Exam: General: Alert and oriented x3, no acute distress, pleasant and cooperative Lungs: Respirations even and unlabored, symmetrical chest expansion Eyes: PERRL Musculoskeletal: Flexion and extension of lumbar [spine] somewhat guarded secondary to pain, [antalgic gait noted] positive Kemps test Neurological: Speech clear, no gross sensory deficit [facility] and open MRI May 23, 2023 MRI of lumbar spine without contrast Findings: There is acute bone edema along the posterior inferior endplate of L2. There is diffuse disc desiccation throughout the lumbar spine. There are more chronic degenerative endplate changes with osteophytosis throughout the lumbar spine and visualized lower thoracic spine. There is minimal retrolisthesis of L3 on L4. There is minimal anterior listhesis of L4 on L5. There is clumping of nerve roots seen throughout the lumbar spine and be seen with arachnoiditis. There are renal cystic lesions incompletely assessed on this study. T12-L1: There is no significant canal or foraminal stenosis. There are very small posterior central disc protrusion. L1-L2: There is a small disc bulge with mild articular facet disease. There is concentric disc bulge with moderate articular facet disease. There is mild to moderate left and mild right foraminal narrowing. There is mild canal narrowing. L2-L3: There is a small disc bulge with moderate articular facet disease. There is mild foraminal narrowing. The canal is minimally narrowed. L3-L4: There is a small disc osteophyte complex formation with mild articular facet disease. Mild to moderate foraminal narrowing and mild canal narrowing. L4-L5: Small disc bulge with small posterior central disc protrusion. Moderate articular facet disease and moderate canal narrowing. Moderate to severe foraminal narrowing. L5-S1: Small disc bulge with moderate articular facet disease mild to moderate foraminal narrowing. Canal is patent Assessment:: Degenerative disc disease of lumbar spine with lumbar radiculopathy symptoms, low back pain, mid back pain, bilateral knee pain, lumbar facet arthropathy, lumbar spinal stenosis Plan:: Patient is experiencing significant pain in his low back with limited range of motion. Patient had a positive Kemps test and MRI showing facet arthropathy and spinal stenosis. I have discussed with the patient that he may benefit from a lumbar medial branch block bilateral
== END ==
PROVIDERS: PCP Family Medicine; Visit Provider Nurse Practitioner Family
DX: M51.16 Intervertebral disc disorders with radiculopathy, lumbar region (principal); M54.6 Pain in thoracic spine; M25.561 Pain in right knee; M25.562 Pain in left knee; M47.26 Other spondylosis with radiculopathy, lumbar region; M48.061 Spinal stenosis, lumbar region without neurogenic claudication
CPT/HCPCS: 99212; G0463

== ENCOUNTER → 2023-06-16 12:00 | Outpatient (CLI) | payer MEDICARE, MEDICAID, SELFPAY | PROVIDERS: PCP Family Medicine; Visit Provider Family Medicine | DX: E07.9 Disorder of thyroid, unspecified (principal) | CPT/HCPCS: 84443 ==

== ENCOUNTER → 2023-08-14 13:39 | Outpatient (POV) | payer MEDICARE, MEDICAID, SELFPAY ==
--- NOTE | 2023-08-14 14:03 | EXP.PAIN.SOA ---
[facility] Pain Management SOAP Note Subjective:: Patient is a pleasant 63-year-old male who presents today for follow-up. We are currently treating the patient for degenerative disc disease of lumbar spine with lumbar radiculopathy symptoms, low back pain, mid back pain, bilateral knee pain, lumbar facet arthropathy, lumbar spinal stenosis, lumbar spondylosis. Today he rates his pain a 9 out of 10. Patient denies any new trauma or injury since the last visit with us. He does state that his back pain seems to have worsened and has gotten to the point that its unbearable. He does describe this as an aching, throbbing sensation that is worse with increased ambulation or certain movements such as bending twisting or lifting. He denies any radiating symptoms into his legs. It does interfere with ability perform activities of daily living such as cooking and cleaning. At our last visit we did recommend a lumbar medial branch block however the patient did not proceed forward with this option. He does also state he has been experiencing worsening cramping in his lower calves at night. He states it does affect his ability to sleep and frequently has to get up and move around to resolve the spasms. Patient denies ever being tried on any restless leg medication. He is currently managed with [place] 7.5 mg twice a day and tizanidine 4 mg at bedtime from his primary care provider. He denies any side effects from these medications. His Rubens has been reviewed and is appropriate. Review of Systems: General: No recent weight changes, no fever, no sleep disturbances Respiratory: No cough, no shortness of air, no recurring pulmonary infections Cardiovascular/peripheral vascular: No chest pain, no palpitations, no edema, no shortness of breath Gastrointestinal: No new onset incontinence, normal bowel movements reported Genitourinary: No new onset incontinence Musculoskeletal: Low back pain Psychiatric: [Normal mood/affect] Neurological: [Denies weakness in extremities], [denies balance issues] Objective:: Physical Exam: General: Alert and oriented x3, no acute distress, pleasant and cooperative Lungs: Respirations even and unlabored, symmetrical chest expansion Eyes: PERRL Musculoskeletal: Flexion and extension of lumbar [spine] somewhat guarded secondary to pain, [antalgic gait noted] positive Kemps test Neurological: Speech clear, no gross sensory deficit Assessment:: Degenerative disc disease of lumbar spine with lumbar spinal stenosis, lumbar facet arthropathy, lumbar spondylosis Plan:: Patient is experiencing worsening pain in his low back with limited range of motion and a positive Kemps test. I have discussed with patient that he may benefit from a lumbar medial branch block. Risk and benefits were discussed with the patient and he would like to proceed forward with this plan of care. Patients previous MRI did show multilevel spondylosis and lumbar facet arthropathy. Patient is not on any blood thinners. We will schedule the patient for a lumbar medial branch block bilaterally L4-L5 and L5-S1. I will also send in a 14-day supply of ropinirole 0.25 mg at bedtime. Patient has been instructed to contact the clinic with any concerns before the next appointment. Dr. Garcia has reviewed this note and agrees with this plan of care. This note was dictated using voice recognition software and make contain errors or omissions. [facility] Disclaimer: The information contained in this section may have been updated after the patient was seen, as this information can be updated by other users. Medical History Back pain Chronic pain Erosive (osteo)arthritis History of head and neck cancer Hypertension Obesity (BMI 35.0-39.9 without comorbidity) Social History Smoking Status: Never smoker second hand exposure: Yes alcohol intake: former substance use
[2023-08-14 14:21] VITALS: BP 142/87; PULSE 79; RESP 18; O2SAT 95; BMI 40.3
== END | disposition home or self-care (01) ==
PROVIDERS: Visit Provider Nurse Practitioner Family
DX: M51.36 Other intervertebral disc degeneration, lumbar region (principal); M48.061 Spinal stenosis, lumbar region without neurogenic claudication; M47.816 Spondylosis without myelopathy or radiculopathy, lumbar region
CPT/HCPCS: 99212; G0463

== ENCOUNTER → 2023-08-18 23:40 | Outpatient (CLI) | payer MEDICARE, MEDICAID, SELFPAY ==
[2023-08-18 19:37] LABS: Basophils # 0.1 K/mm3 (0-0.2); Basophils % 0.7 % (0.1-2.0); Eosinophils # 0.3 K/mm3 (0.0-0.4); Eosinophils % 4.6 % (0.1-12.0); Hematocrit 44.9 % (42.0-52.0); Hemoglobin 15.6 g/dL (14.1-18.0); Lymphocytes # 1.5 K/mm3 (0.7-4.5); Lymphocytes % 20.1 % (10-50); Mean Corpuscular HGB Conc 34.8 g/dL (31.8-35.4); Mean Corpuscular Hemoglobin 31.2 pg (27.0-31.2); Mean Corpuscular Volume 89.5 fl (80-94); Mean Platelet Volume 10.5 fl (7.4-10.4); Monocytes # 0.5 K/mm3 (0.1-1.0); Monocytes % 6.7 % (1.7-9.3); Neutrophils # 5.1 K/mm3 (1.8-7.8); Neutrophils % 67.9 % (37.0-80.0); Platelet Count 201 K/mm3 (142-424); Red Blood Count 5.02 M/mm3 (4.60-6.20); White Blood Count 7.5 K/mm3 (4.8-10.8)
[2023-08-18 20:53] LABS: Chloride 103 mmol/L (98-107); Sodium 140 mmol/L (136-145)
[2023-08-18 20:54] LABS: Potassium 3.6 mmoL/L (3.5-5.1)
[2023-08-18 20:56] LABS: Alanine Aminotransferase 36 U/L (12-78); Albumin Level 4.3 g/dl (3.5-5.0); Albumin/Globulin Ratio 1.5 (1.1-1.8); Alkaline Phosphatase 111 U/L (38-126); Anion Gap 10.6 mEq/L (5-15); Aspartate Amino Transferase 34 U/L (17-59); Bilirubin,Total 0.3 mg/dl (0.2-1.3); Blood Urea Nitrogen 17 mg/dl (9-20); Carbon Dioxide 30 mmol/L (22.0-30.0); Cholesterol 255 mg/dl (140-200); Estimated Glomerular Filt Rate 61 ml/min (>60); GFR (African American) 74 ML/MIN (>60); Globulin 2.8 g/dL (1.3-3.2); Total Protein,Serum 7.1 g/dl (6.3-8.2); Triglycerides 176 mg/dl (30-150); VLDL Cholesterol 35 mg/dL (0-40)
[2023-08-18 20:57] LABS: Calcium 8.9 mg/dl (8.4-10.2); Chol/HDL Ratio 6.5 (1-3.5); Glucose 92 mg/dl (74-100); HDL Cholesterol 39 mg/dl (40-60)
[2023-08-18 21:31] LABS: Thyroid Stimulating Hormone 5.74 uIU/mL (0.465-4.68)
== END ==
PROVIDERS: Family Medicine; PCP Family Medicine; Visit Provider Family Medicine
DX: E11.9 Type 2 diabetes mellitus without complications (principal); Z00.00 Encounter for general adult medical examination without abnormal findings; Z79.899 Other long term (current) drug therapy; Z12.5 Encounter for screening for malignant neoplasm of prostate
CPT/HCPCS: 80053; 80061; 84443; 85025

== ENCOUNTER → 2023-08-23 11:29 | Outpatient (CLI) | payer MEDICARE, MEDICAID, SELFPAY | PROVIDERS: PCP Family Medicine; Visit Provider Family Medicine | DX: G47.33 Obstructive sleep apnea (adult) (pediatric); R40.0 Somnolence | CPT/HCPCS: G0399 ==

== ENCOUNTER 2023-08-29 10:14 | Day surgery (SDC) | payer MEDICARE, MEDICAID, SELFPAY ==
[2023-08-29 10:21] VITALS: BP 165/89; PULSE 64; RESP 16; TEMP 36.5; O2SAT 96; BMI 41.0
[2023-08-29 10:30] VITALS: BP 133/74; PULSE 73; O2SAT 93
[2023-08-29 10:36] VITALS: BP 133/74; PULSE 60; O2SAT 94
[2023-08-29 10:37] VITALS: BP 145/80; PULSE 63; RESP 16; O2SAT 96
--- NOTE | 2023-08-29 10:38 | P.PCN_ITS ---
Procedure Date: 08/29/23 Time: 10:30 Anesthesiologist:: Eric Vale CRNA Complications:: None Pre-procedure Diagnosis:: Degenerative disc lumbar spine multilevels. Lumbar radiculopathy. Lumbar spondylosis. Multilevel lumbar facet arthropathy. Post-procedure Diagnosis:: Same. Indications for Procedure:: Patient is a very pleasant 63-year-old male that comes our clinic today for bilateral lumbar L4-5, L5-S1 medial branch blocks/facet injections. Patient complains of low back pain he describes as constant, dull, aching. He rates his pain 8/10. Patient has difficulty standing and/or sitting for any length of time. Flexion and/or extension is difficult. Procedure Details:: Informed consent was obtained and the risk and benefits of the procedure was explained to the patient. Patient was taken to the procedure room where noninva sive monitors were placed, including noninvasive blood pressure cuff as well as pulse oximeter. The area over the lumbar spine was cleansed using chlorhexidine as a cleansing solution. I anesthetized the skin and subcutaneous tissues with 1% Lidocaine. I placed 22-gauge spinal needles into the facet joint/ medial branches of L4-L5, and L5-S1] bilaterally. Needle placement was confirmed with fluoroscopy. After confirmation of needle placement, each site was injected with 1 mL of 1% lidocaine and 0.25 % Marcaine and 10 mg of Depo-Medrol. A total of 80 mg of depo medrol was used for bilateral medial branch blocks of L4-L5, and L5- S1] bilaterally. Patient tolerated the procedure without difficulty. There were no complications. Plan and Disposition:: Patient was discharged without incident.
== END 2023-08-29 10:37 | disposition home or self-care (01) ==
PROVIDERS: PCP Family Medicine; Visit Provider Nurse Anesthetist, Certified Registered
DX: M47.896 Other spondylosis, lumbar region (principal); M51.16 Intervertebral disc disorders with radiculopathy, lumbar region
CPT/HCPCS: 64493; 64494; J1040

== ENCOUNTER → 2023-09-13 14:34 | Outpatient (POV) | payer MEDICARE, MEDICAID, SELFPAY ==
[2023-09-13 14:51] VITALS: BP 118/85; PULSE 82; RESP 18; O2SAT 96; BMI 41.0
--- NOTE | 2023-09-13 15:04 | EXP.PAIN.SOA ---
[facility] Pain Management SOAP Note Subjective:: Patient is a pleasant 63-year-old male who presents today for follow-up of lumbar medial branch block bilaterally L4-L5 and L5-S1 on 08/29/2023. We are currently treating the patient for degenerative disc disease of lumbar spine with lumbar radiculopathy symptoms, low back pain, mid back pain, bilateral knee pain, lumbar facet arthropathy, lumbar spinal stenosis, lumbar spondylosis. Today he rates his pain a 6 out of 10. Patient denies any new trauma or injury. Patient does state that he has had at least 90% improvement following this injection and feels like it is still continuing to provide additional relief. Patient does state that he has been able to increase his activity with decreased pain symptoms and feels overall more functional. Patient states he has not even needed assistance for going up the stairs. Patient does state he has noticed worsening pain in his mid to upper back following this injection. Patient does state that he is scheduled to see his PCP on Monday and that he believes part of his issue is related to a hernia that he may have in his upper abdomen. Patient also states that he is scheduled for an upcoming visit with [facility] for possible intervention to help lose weight. Patient states that he did try to get the weight loss injections however does not qualify due to not being diabetic. Patient is currently managed with oxycodone 10 mg 3 times a day and tizanidine 4 mg at bedtime from his primary care provider. He denies any side effects from these medications. His Rubens has been reviewed and is appropriate. Review of Systems: General: No recent weight changes, no fever, no sleep disturbances Respiratory: No cough, no shortness of air, no recurring pulmonary infections Cardiovascular/peripheral vascular: No chest pain, no palpitations, no edema, no shortness of breath Gastrointestinal: No new onset incontinence, normal bowel movements reported Genitourinary: No new onset incontinence Musculoskeletal: Mid back pain, abdominal pain Psychiatric: [Normal mood/affect] Neurological: [Denies weakness in extremities], [denies balance issues] Objective:: Physical Exam: General: Alert and oriented x3, no acute distress, pleasant and cooperative Lungs: Respirations even and unlabored, symmetrical chest expansion Eyes: PERRL Musculoskeletal: Flexion and extension of lumbar [spine] somewhat guarded secondary to pain, [antalgic gait noted] Neurological: Speech clear, no gross sensory deficit Assessment:: Degenerative disc disease of lumbar spine with lumbar radiculopathy symptoms, low back pain, mid back pain, bilateral knee pain, lumbar facet arthropathy, lumbar spinal stenosis, lumbar spondylosis Plan:: Patient has had significant improvement in his low back pain following his lumbar medial branch block and does not require any additional injection therapy. I have reviewed over the risk and benefits of the lumbar ablation for future and we will discuss this at future visits. Patient will return to clinic in 1 month for reevaluation of symptoms and plan of care. Patient has been instructed to contact the clinic with any concerns before the next appointment. Dr. Garcia has reviewed this note and agrees with this plan of care. This note was dictated using voice recognition software and make contain errors or omissions. [facility] Disclaimer: The information contained in this section may have been updated after the patient was seen, as this information can be updated by other users. Medical History Back pain Chronic pain Erosive (osteo)arthritis History of head and neck cancer Hypertension Obesity (BMI 35.0-39.9 without comorbidity) Social History Smoking Status: Never smoker second hand exposure: Yes alcohol intake: former substance use type: marijuana current occu
== END ==
PROVIDERS: PCP Family Medicine; Visit Provider Nurse Practitioner Family
DX: M51.16 Intervertebral disc disorders with radiculopathy, lumbar region (principal); M54.6 Pain in thoracic spine; M47.26 Other spondylosis with radiculopathy, lumbar region; M25.561 Pain in right knee; M25.562 Pain in left knee; M48.061 Spinal stenosis, lumbar region without neurogenic claudication
CPT/HCPCS: 99212; G0463

== ENCOUNTER → 2023-09-18 23:33 | Outpatient (CLI) | payer MEDICARE, MEDICAID, SELFPAY ==
[2023-09-18 20:53] LABS: Amphetamine/Metha Screen,Urine Negative ng/ml (<1000)
[2023-09-18 20:55] LABS: Barbiturates Screen,Urine Negative ng/ml (<200); Benzodiazepines Screen,Urine Negative ng/ml (<200)
[2023-09-18 20:56] LABS: Cannabinoid Screen,Urine Positive ng/ml (<50)
[2023-09-18 20:58] LABS: Cocaine Screen,Urine Negative ng/ml (<300); Methadone Screen,Urine Negative ng/ml (<300)
[2023-09-18 20:59] LABS: Opiate Screen,Urine Negative ng/ml (<300)
[2023-09-18 21:00] LABS: Phencyclidine Screen,Urine Negative ng/ml (<25)
== END ==
PROVIDERS: PCP Family Medicine; Visit Provider Family Medicine
DX: Z79.899 Other long term (current) drug therapy (principal)
CPT/HCPCS: 80305

== ENCOUNTER → 2023-10-11 14:20 | Outpatient (POV) | payer MEDICARE, MEDICAID, SELFPAY ==
--- NOTE | 2023-10-11 15:25 | A.OFFVIS_ITS ---
[facility] Pain Management SOAP Note Subjective:: Patient is a pleasant 63-year-old male who presents today for follow-up. We are currently treating the patient for degenerative disc disease of lumbar spine with lumbar radiculopathy symptoms, lumbar facet arthropathy, lumbar spinal stenosis, lumbar spondylosis, bilateral knee pain, mid back pain. Today he rates his pain a 7 out of 10. Patient denies any new trauma or injury. He does state that he is now experiencing worsening pain in his low back that does radiate down his entire right leg to his foot. Patient does describe this as an aching, throbbing sensation with numbness and tingling. He does state the pain interferes with his ability perform activities of daily living such as cooking and cleaning. Patient is interested in any help we may be able to provide. Patient does state that he did end up going to [facility] for possible surgical intervention for weight loss and that he is having a workup done and has to get notes from all his providers for clearance before proceeding forward. Patient is currently managed with oxycodone 10 mg 3 times a day and ti zanidine 4 mg at bedtime from his PCP. He denies any side effects from this medication. His Rubens has been reviewed and is appropriate. Review of Systems: General: No recent weight changes, no fever, no sleep disturbances Respiratory: No cough, no shortness of air, no recurring pulmonary infections Cardiovascular/peripheral vascular: No chest pain, no palpitations, no edema, no shortness of breath Gastrointestinal: No new onset incontinence, normal bowel movements reported Genitourinary: No new onset incontinence Musculoskeletal: Low back pain, right leg pain Psychiatric: [Normal mood/affect] Neurological: [Denies weakness in extremities], [denies balance issues] Objective:: Physical Exam: General: Alert and oriented x3, no acute distress, pleasant and cooperative Lungs: Respirations even and unlabored, symmetrical chest expansion Eyes: PERRL Musculoskeletal: Flexion and extension of lumbar [spine] somewhat guarded secondary to pain, [antalgic gait noted] positive right leg raise with decreased sensation to light touch and decreased reflexes Neurological: Speech clear, no gross sensory deficit Assessment:: Degenerative disc disease of lumbar spine with lumbar radiculopathy symptoms, lumbar facet arthropathy, lumbar spondylosis, bilateral knee pain, mid back pain, right leg pain Plan:: Patient is experiencing worsening pain in his low back with radiating symptoms down his entire right leg. Patient had limited range of motion in his lumbar spine along with a positive right leg raise and decreased sensation to light touch and decreased reflexes during today's exam. I have discussed with the patient that he may benefit from a right transforaminal epidural steroid injection. Risk and benefits were discussed with the patient and he would like to proceed forward with this plan of care. Patient is not on any blood thinn ers. We will schedule the patient for a right transforaminal epidural steroid injection L4-L5 and L5-S1. All epidurals are done under fluoroscopic guidance to confirm placement. Patient has been counseled to contact our office with any questions or concerns before their next appointment date. This note has been dictated using voice recognition software and may contain errors or omissions. Dr. Garcia has read this note and agrees with this plan of care. [facility] Disclaimer: The information contained in this section may have been updated after the patient was seen, as this information can be updated by other users. Medical History Back pain Chronic pain Erosive (osteo)arthritis History of head and neck cancer Hypertension Obesity (BMI 35.0-39.9 without comorbidity) Social History Smoking Status: Never smoker second hand exposure: Yes alcohol intake: former substance use type: marijuana current occupational status: disabled Travel in the last 8 weeks: None household members: none housing: apartment current occupational exposures/hazards: No caffeine: Yes
[2023-10-11 16:10] VITALS: BP 131/95; PULSE 67; RESP 18; O2SAT 97; BMI 41.8
== END ==
LOC: SC.PAIN 14:21
PROVIDERS: PCP Family Medicine; Visit Provider Nurse Practitioner Family
DX: M51.16 Intervertebral disc disorders with radiculopathy, lumbar region (principal); M47.26 Other spondylosis with radiculopathy, lumbar region; M25.561 Pain in right knee; M25.562 Pain in left knee; M79.604 Pain in right leg
CPT/HCPCS: 99212; G0463

== ENCOUNTER 2023-10-31 11:14 | Day surgery (SDC) | payer MEDICARE, MEDICAID, SELFPAY ==
[2023-10-31 11:28] VITALS: BP 161/79; PULSE 77; RESP 18; TEMP 36.6; O2SAT 97; BMI 41.8
[2023-10-31] MEDS: LIDOCAINE 1% 5ML PF VIAL 5 ML (11:29)
[2023-10-31 11:30] VITALS: BP 135/86; PULSE 78; RESP 18; O2SAT 95
[2023-10-31 11:31] VITALS: BP 135/86; PULSE 77; RESP 18; O2SAT 95
[2023-10-31 11:38] VITALS: BP 141/78; PULSE 71; RESP 16; O2SAT 97
--- NOTE | 2023-10-31 11:41 | EXP.PAIN.PRO ---
Procedure Date: 10/31/23 Time: 11:15 Anesthesiologist:: Eric Vale CRNA Complications:: None Pre-procedure Diagnosis:: Degenerative disc lumbar spine multilevels. Lumbar radiculopathy. Disc bulge lumbar spine multilevels. Post-procedure Diagnosis:: Same. Indications for Procedure:: Patient is a very pleasant 63-year-old male that comes our clinic today for right transforaminal epidural steroid injection L4-5, L5-S1. Patient reports low back pain off the midline to the right with right hip and leg radicular symptoms to the foot. He rates his pain 6/10. Patient describes the radicular symptom as tingling, shocking sensation. Procedure Details:: Details of the procedure were explained to the patient. The patient was taken the procedure room placed in the prone position. The area of the lumbar spine was cleansed using chlorhexidine as a cleansing solution. At this time using fluoroscopy guidance markers were placed on the right lateral border of the L4 and L5 vertebral body. The skin and subcutaneous tissue was anesthetized using 1% lidocaine and 25-gauge needle. At this time using a 22-gauge 3-1/2 inch spinal needle the right upper one third of the L4-5 foramen was accessed. The same was done at the right L5-S1 foramen. Needle positions were confirmed and a lateral view using fluoroscopy and contrast dye. At this time 1 cc of 1% lidocaine +20 mg of Depo-Medrol was injected at each level after negative aspiration. [place] were removed. Band-Aid applied. Patient tolerated the procedure without difficulty. There are no complications. Plan and Disposition:: Patient was discharged without incident.
== END 2023-10-31 11:38 | disposition home or self-care (01) ==
PROVIDERS: PCP Family Medicine; Visit Provider Nurse Anesthetist, Certified Registered
DX: M51.16 Intervertebral disc disorders with radiculopathy, lumbar region (principal); M51.26 Other intervertebral disc displacement, lumbar region
CPT/HCPCS: 64483; 64484; J1030

== ENCOUNTER 2023-11-16 22:06 | Outpatient (CLI) | payer MEDICARE, MEDICAID, SELFPAY ==
[2023-11-17 02:07] LABS: Amphetamine/Metha Screen,Urine Negative ng/ml (<1000); Barbiturates Screen,Urine Negative ng/ml (<200)
[2023-11-17 02:08] LABS: Benzodiazepines Screen,Urine Negative ng/ml (<200)
[2023-11-17 02:09] LABS: Cannabinoid Screen,Urine Positive ng/ml (<50); Cocaine Screen,Urine Negative ng/ml (<300)
[2023-11-17 02:11] LABS: Opiate Screen,Urine Negative ng/ml (<300); Phencyclidine Screen,Urine Negative ng/ml (<25)
[2023-11-17 02:18] LABS: Methadone Screen,Urine Negative ng/ml (<300)
[2023-11-22 07:12] LABS: Oxycodone Positive (.); Oxycodone Confirm 2029 ng/mL (Cutoff=100); Oxymorphone Positive (.); Oxymorphone Confirm 2394 ng/mL (Cutoff=100)
== END 2023-11-16 23:59 ==
LOC: LAB.DROPOF 22:07
PROVIDERS: PCP Family Medicine; Visit Provider Family Medicine
DX: Z79.899 Other long term (current) drug therapy (principal)
CPT/HCPCS: 80307; 80365

== ENCOUNTER → 2023-11-22 11:23 | Outpatient (POV) | payer MEDICARE, MEDICAID, SELFPAY ==
--- NOTE | 2023-11-22 11:58 | A.OFFVIS_ITS ---
[facility] Pain Management SOAP Note Subjective:: Patient is a pleasant 63-year-old male who presents today for follow-up of right transforaminal epidural steroid injection L4-L5 and L5-S1 on 10/31/2023. We are currently treating the patient for degenerative disc disease of lumbar spine with lumbar radiculopathy symptoms, lumbar spondylosis, lumbar facet arthropathy, lumbar spinal stenosis, bilateral knee pain, mid back pain. Today he rates his pain a 7 out of 10. Patient does state that he has had at least 60 to 70% improvement following this injection. He states he has been able to increase his activity with decreased pain symptoms and does feel overall more functional however he does continue to experience some pain around his right hip. Patient does describe this as an aching, throbbing sensation that is worse with certain activities such as prolonged sitting or walking. He does state that the pain interferes with his ability perform activities of daily living such as cooking and cleaning. Patient is interested in possible injection therapy for this pain. Patient is currently managed with oxycodone 10 mg 3 times a day and tizanidine 4 mg at night from his primary care provider. Patient is in the process of possible bariatric surgery at [facility]. His Rubens has been reviewed and is appropriate. Injections: Right transforaminal epidural steroid injection L4-L5 and L5-S1?10/31/2023?60 to 70% Bilateral lumbar medial branch block bilaterally L4-L5 and L5-S1?08/29/2023-90% Review of Systems: General: No recent weight changes, no fever, no sleep disturbances Respiratory: No cough, no shortness of air, no recurring pulmonary infections Cardiovascular/peripheral vascular: No chest pain, no palpitations, no edema, no shortness of breath Gastrointestinal: No new onset incontinence, normal bowel movements reported Genitourinary: No new onset incontinence Musculoskeletal: Low back pain, right hip pain Psychiatric: [Normal mood/affect] Neurological: [Denies weakness in extremities], [denies balance issues] Objective:: Physical Exam: General: Alert and oriented x3, no acute distress, pleasant and cooperative Lungs: Respirations even and unlabored, symmetrical chest expansion Eyes: PERRL Musculoskeletal: Flexion and extension of lumbar [spine] somewhat guarded secondary to pain, [antalgic gait noted] point tenderness along right SI with positive right Velia's, Nancy's, Gaenslen's, compression and distraction exam Neurological: Speech clear, no gross sensory deficit Assessment:: Degenerative disc disease of lumbar spine with lumbar radiculopathy symptoms, lumbar spondylosis, lumbar facet arthropathy, lumbar spinal stenosis, bilateral knee pain, mid back pain, right-sided sacroiliitis Plan:: Patient is experiencing worsening pain in and around his low back at his right hip with limited range of motion. Patient did have point tenderness along his right SI with a positive right Velia's, Nancy's, Gaenslen's, compression and d istraction exam. I have discussed with the patient that he may benefit from right SI injection. Risk and benefits were discussed with the patient and he would like to proceed forward with this plan of care. Patient will be scheduled for a right SI injection under fluoroscopy. Patient has been instructed to contact the clinic with any concerns before the next appointment. Dr. Garcia has reviewed this note and agrees with this plan of care. This note was dictated using voice recognition software and make contain errors or omissions. [facility] Disclaimer: The information contained in this section may have been updated after the patient was seen, as this information can be updated by other users. Medical History (Updated 11/16/23 @ 10:39 by PASTOR Son) Back pain Barretts esophagus Bilateral knee pain Chronic pain Erosive (osteo)arthritis History of gastric polyp History of head and neck cancer Hypertension Hypokalemia Hypothyroidism Lumbar radiculopathy Obesity (BMI 35.0-39.9 without comorbidity) Renal insufficiency Transaminitis Surgical History (Updated 11/16/23 @ 10:46 by PASTOR Son) Hx of endoscopy Social History Smoking Status: Never smoker second hand exposure: Yes alcohol intake: former substance use type: marijuana current occupational status: disabled Travel in the last 8 weeks: None household members: none housing: apartment current occupational exposures/hazards: No caffeine: Yes
[2023-11-22 14:10] VITALS: BP 161/95; PULSE 59; RESP 18; O2SAT 97; BMI 42.5
== END ==
LOC: SC.PAIN 11:24
PROVIDERS: PCP Family Medicine; Visit Provider Nurse Practitioner Family
DX: M51.16 Intervertebral disc disorders with radiculopathy, lumbar region (principal); M47.26 Other spondylosis with radiculopathy, lumbar region; M48.061 Spinal stenosis, lumbar region without neurogenic claudication; M25.561 Pain in right knee; M25.562 Pain in left knee; M46.1 Sacroiliitis, not elsewhere classified
CPT/HCPCS: 99212; G0463

== ENCOUNTER 2023-12-14 22:08 | Outpatient (CLI) | payer MEDICARE, MEDICAID, SELFPAY ==
[2023-12-14 20:06] LABS: Chol/HDL Ratio 5.2 (1-3.5); Cholesterol 177 mg/dl (140-200); HDL Cholesterol 34 mg/dl (40-60); Triglycerides 181 mg/dl (30-150); VLDL Cholesterol 36 mg/dL (0-40)
[2023-12-14 20:17] LABS: Direct LDL Cholesterol 92.71 mg/dL (100-129)
[2023-12-14 20:37] LABS: Thyroid Stimulating Hormone 1.72 uIU/mL (0.465-4.68)
== END 2023-12-14 23:59 ==
LOC: LAB.DROPOF 22:08
PROVIDERS: PCP Family Medicine; Visit Provider Family Medicine
DX: E66.9 Obesity, unspecified (principal); E03.9 Hypothyroidism, unspecified; Z68.41 Body mass index [BMI] 40.0-44.9, adult; Z79.899 Other long term (current) drug therapy
CPT/HCPCS: 80061; 84443

== ENCOUNTER 2024-03-20 11:45 | Outpatient (CLI) | payer MEDICARE, MEDICAID, SELFPAY ==
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
== END 2024-03-20 23:59 | disposition home or self-care (01) ==
LOC: RAD 11:46
PROVIDERS: PCP Family Medicine; Visit Provider Family Medicine
DX: M25.551 Pain in right hip (principal)
CPT/HCPCS: 73502

== ENCOUNTER 2024-04-29 06:24 | Outpatient (CLI) | payer MEDICARE, MEDICAID, SELFPAY ==
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
== END 2024-04-29 23:59 | disposition home or self-care (01) ==
LOC: RAD 06:25
PROVIDERS: PCP Family Medicine; Visit Provider Family Medicine
DX: G44.309 Post-traumatic headache, unspecified, not intractable (principal)
CPT/HCPCS: 70450

== ENCOUNTER 2024-06-19 09:24 | Outpatient (POV) | payer MEDICARE, MEDICAID, SELFPAY ==
[2024-06-19 09:43] VITALS: BP 104/62; PULSE 70; RESP 18; O2SAT 97; BMI 43.7
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
== END 2024-06-19 23:59 | disposition home or self-care (01) ==
LOC: SC.PAIN 09:25
PROVIDERS: PCP Family Medicine; Visit Provider Nurse Practitioner Family
DX: M47.816 Spondylosis without myelopathy or radiculopathy, lumbar region (principal); M54.50 Low back pain, unspecified; Z96.652 Presence of left artificial knee joint; Z73.89 Other problems related to life management difficulty; Z79.899 Other long term (current) drug therapy
CPT/HCPCS: 99212; G0463

== ENCOUNTER 2024-07-02 10:49 | Day surgery (SDC) | payer MEDICARE, MEDICAID, SELFPAY ==
[2024-07-02 11:06] VITALS: BP 142/81; PULSE 67; RESP 16; TEMP 36.8; O2SAT 97; BMI 44.1
[2024-07-02] MEDS: BUPIVACAINE 0.25% 10ML INJ 25 MG IJ (11:11)
[2024-07-02] MEDS: LIDOCAINE 1% 5ML PF VIAL 5 ML (11:11)
[2024-07-02] MEDS: methylPREDNISolone ACETATE 80MG/ML VIAL 80 MG (11:11)
[2024-07-02 11:12] VITALS: BP 152/93; PULSE 84; RESP 18; O2SAT 96
--- NOTE | 2024-07-02 11:14 | P.PCN_ITS ---
Procedure Date: 07/02/24 Time: 11:00 Anesthesiologist:: Eric Vale CRNA Complications:: None Pre-procedure Diagnosis:: Degenerative disc lumbar spine multilevels. Lumbar radiculopathy. Lumbar facet arthropathy. Lumbar spondylosis. Post-procedure Diagnosis:: Same. Indications for Procedure:: Patient is a very pleasant 64-year-old male who comes our clinic today for round TWO of bilateral lumbar medial branch block L4-5, L5-S1 levels. Patient reports significant improvement terms of his overall low back pain with round 1. He describes low back pain as constant, dull, aching. Patient also reports difficulty with flexion, extension, left and right rotation lumbar spine. He rates his pain 7/10. Procedure Details:: Informed consent was obtained and the risk and benefits of the procedure was explained to the patient. Patient was taken to the procedure room where noninvasive monitors were placed, including noninvasive blood pressure cuff as well as pulse oximeter. The area over the lumbar spine was cleansed using chlorhexidine as a cleansing solution. I anesthetized the skin and subcutaneous tissues with 1% Lidocaine. I placed 22-gauge spinal needles into the facet joint/ medial branches of L4-L5, and L5-S1] bilaterally. Needle placement was confirmed with fluoroscopy. After confirmation of needle placement, each site was injected with 1 mL of 1% lidocaine and 0.25 % Marcaine and 10 mg of Depo- Medrol. A total of 80 mg of depo medrol was used for bilateral medial branch blocks of L4-L5, and L5-S1] bilaterally. Patient tolerated the procedure without difficulty. There were no complications. Plan and Disposition:: Patient was discharged without incident.
[2024-07-02 11:16] VITALS: BP 152/93; PULSE 84; RESP 18; O2SAT 96
[2024-07-02 11:17] VITALS: BP 146/77; PULSE 64; RESP 18; O2SAT 97
== END 2024-07-02 11:17 | disposition home or self-care (01) ==
PROVIDERS: PCP Family Medicine; Visit Provider Nurse Anesthetist, Certified Registered
DX: M47.816 Spondylosis without myelopathy or radiculopathy, lumbar region (principal); M51.36 Other intervertebral disc degeneration, lumbar region
CPT/HCPCS: 64493; 64494; J1010

== ENCOUNTER 2024-07-29 14:46 | Outpatient (POV) | payer MEDICARE, MEDICAID, SELFPAY ==
[2024-07-29 15:17] VITALS: BP 122/77; PULSE 84; RESP 16; O2SAT 98; BMI 42.5
--- NOTE | 2024-07-29 15:31 | A.OFFVIS_ITS ---
[facility] Disclaimer: The information contained in this section may have been updated after the patient was seen, as this information can be updated by other users. Medical History Hypothyroidism Transaminitis Renal insufficiency Hypokalemia Bilateral knee pain Lumbar radiculopathy History of gastric polyp Barretts esophagus Hypertension Obesity (BMI 35.0-39.9 without comorbidity) Erosive (osteo)arthritis Back pain History of head and neck cancer Chronic pain Surgical History History of knee replacement Hx of endoscopy Social History Smoking Status: Never smoker second hand exposure: Yes alcohol intake: former substance use type: marijuana current occupational status: other Travel in the last 8 weeks: None household members: none housing: apartment current occupational exposures/hazards: No caffeine: Yes PM Subjective & Objective Subjective Subjective:: Patient is a pleasant 64-year-old male who presents today for follow-up of his second lumbar medial branch block bilaterally L4-L5 and L5-S1 on 07/02/2024. Today he rates his pain a 7 out of 10. He denies any new trauma or injury. He does state that he had a full week of 100% relief and felt like he was able to sleep great and getting out of bed was easier along with movements in general. Patient felt much more functional. He states then the second week still provided about 75 to 80% improvement however this week he does state that it is starting to go back to his baseline. He does state the pain is interfering with his ability perform activities of daily living such as cooking and cleaning. He states the pain is all still there in his low back and denies any radiating symptoms into his legs. Patient does state that certain movements really seem to aggravate overall such as bending, twisting or lifting. Patient did have a successful 90% improvement with his first block. Patient does state he would like to proceed forward with the ablation. Patient has tried and failed conservative therapy. His Rubens has been reviewed and is appropriate. Review of Systems: General: No recent weight changes, no fever, no sleep disturbances Respiratory: No cough, no shortness of air, no recurring pulmonary infections Cardiovascular/peripheral vascular: No chest pain, no palpitations, no edema, no shortness of breath Gastrointestinal: No new onset incontinence, normal bowel movements reported Genitourinary: No new onset incontinence Musculoskeletal: Low back pain Psychiatric: [Normal mood/affect] Neurological: [Denies weakness in extremities], [denies balance issues] Pain at rest (0-10 scale): 7 Objective Objective:: Physical Exam: General: Alert and oriented x3, no acute distress, pleasant and cooperative Lungs: Respirations even and unlabored, symmetrical chest expansion Eyes: PERRL Musculoskeletal: Flexion and extension of lumbar [spine] somewhat guarded secondary to pain, [antalgic gait noted] positive Kemps test Neurological: Speech clear, no gross sensory deficit Has patient had previous pain injection?: Yes Percent improvement in pain since last injection: 100% Conservative treatment options previously tried: Home exercise plan Length of treatment: Longer than 12-week Meds Home Medications and Allergies Home Medications ?Medication ?Instructions ?Recorded ?Confirmed ?Type aspirin 81 mg tablet,delayed 81 mg PO DAILY heart 03/30/20 07/29/24 History release (Adult Aspirin Regimen) inhalational spacing device #10 ea 06/16/23 07/29/24 Rx (Aerochamber MV spacer) amlodipine 10 mg tablet (Norvasc) 10 mg PO DAILY BLOOD PRESSURE #90 10/19/23 07/29/24 Rx tabs hydrochlorothiazide 25 mg tablet See Rx Instructions .Route 10/19/23 07/29/24 Rx .COMPLEX Fluid #90 tabs pantoprazole 40 mg tablet,delayed See Rx Instructions .Route 11/16/23 07/29/24 Rx release .COMPLEX GERD #180 tabs trazodone 150 mg tablet 150 mg PO DAILY #90 tabs 01/17/24 07/29/24 Rx albuterol sulfate 90 mcg/actuation See Rx Instructions .Route 01/29/24 07/29/24 Rx aerosol inhaler .COMPLEX #8.5 grams losartan 100 mg tablet 100 mg PO DAILY BLOOD PRESSURE #90 02/14/24 07/29/24 Rx tabs potassium chloride 10 mEq 10 meq PO DAILY Supplement #90 tabs 02/14/24 07/29/24 Rx tablet,extended release cyclobenzaprine 10 mg tablet 10 mg PO Q8H #90 tabs 04/15/24 07/29/24 Rx desvenlafaxine succinate 50 mg 50 mg PO DAILY #90 tabs 05/13/24 07/29/24 Rx tablet,extended release 24 hr (Pristiq) ibuprofen 800 mg tablet 800 mg PO Q8H #90 tabs 05/24/24 07/29/24 Rx semaglutide (weight loss) 0.25 0.25 mg (0.5 mL) SQ WEEKLY Weight 06/18/24 07/29/24 Rx mg/0.5 mL subcutaneous pen loss #2 mL injector (Wegovy) levothyroxine 88 mcg tablet 88 mcg PO DAILY #90 tabs 06/24/24 07/29/24 Rx (Synthroid) atorvastatin 20 mg tablet (Lipitor) 20 mg PO DAILY #90 tabs 07/04/24 07/29/24 Rx metoprolol tartrate 100 mg tablet See Rx Instructions .Route 07/09/24 07/29/24 Rx .COMPLEX BLOOD PRESSURE #180 tabs hydralazine 50 mg tablet 50 mg PO TID #90 tabs 07/10/24 07/29/24 Rx fluorouracil 5 % topical cream See Rx Instructions .Route 07/15/24 07/29/24 Rx .COMPLEX #40 grams oxycodone 10 mg tablet 10 mg PO TID PRN pain #90 tabs 07/15/24 07/29/24 Rx semaglutide (weight loss) 0.5 0.5 mg (0.5 mL) SQ WEEKLY #2 mL 07/15/24 07/29/24 Rx mg/0.5 mL subcutaneous pen injector (Wegovy) New Prescriptions to Start Prescriptions: Allergies Allergy/AdvReac Type Severity Reaction Status Date / Time No Known Allergies Allergy Verified 07/15/24 09:35 Assessment and Plan *Assessment and plan (1) Lumbar facet arthropathy: Status: Acute Category: Medical Code(s): M47.816 - Spondylosis without myelopathy or radiculopathy, lumbar region (2) Chronic back pain greater than 3 months duration: Status: Acute Category: Medical Code(s): M54.9 - Dorsalgia, unspecified; G89.29 - Other chronic pain Plan Patient is experiencing worsening pain in his low back with limited range of mo tion and a positive Kemps test. Patient has had 2 successful lumbar medial branch block with his first 1 provided 90% relief and this 1 lasting approximately 2 weeks with upwards of 100% relief. Patient did have improved function overall with decreased pain. I did discuss with the patient that I do believe he would benefit from a lumbar RFA. Risk and benefits were discussed with patient and he would like to proceed forward with this plan of care. Patient has tried and failed conservative therapy including continued at home stretching exercise for longer than 12 weeks. patient will be scheduled for a lumbar RFA bilaterally L4-L5 and L5-S1 under fluoroscopy. Patient has been instructed to contact the clinic with any concerns before the next appointment. Dr. Garcia has reviewed this note and agrees with this plan of care. This note was dictated using voice recognition software and make contain errors or omissions. All injections are used with Lidocaine or Bupivacaine and Depo Medrol.
== END 2024-07-29 23:59 | disposition home or self-care (01) ==
LOC: SC.PAIN 14:47
PROVIDERS: PCP Family Medicine; Visit Provider Nurse Practitioner Family
DX: M47.816 Spondylosis without myelopathy or radiculopathy, lumbar region (principal); M54.9 Dorsalgia, unspecified; G89.29 Other chronic pain; Z73.89 Other problems related to life management difficulty; Z96.659 Presence of unspecified artificial knee joint; Z79.899 Other long term (current) drug therapy
CPT/HCPCS: 99212; G0463

== ENCOUNTER 2024-08-13 13:19 | Day surgery (SDC) | payer MEDICARE, MEDICAID, SELFPAY ==
[2024-08-13 13:23] VITALS: BP 136/74; PULSE 77; RESP 16; TEMP 36.8; O2SAT 99; BMI 41.8
[2024-08-13] MEDS: BUPIVACAINE 0.25% 10ML INJ 25 MG IJ (13:38)
[2024-08-13] MEDS: methylPREDNISolone ACETATE 80MG/ML VIAL 80 MG (13:38)
[2024-08-13] MEDS: LIDOCAINE 1% 5ML PF VIAL 5 ML (13:38)
[2024-08-13 13:39] VITALS: BP 128/75; PULSE 86; RESP 18; O2SAT 95
[2024-08-13 13:40] VITALS: BP 128/75; PULSE 90; RESP 20; O2SAT 95
--- NOTE | 2024-08-13 13:49 | P.PCN_ITS ---
Procedure Date: 08/13/24 Time: 13:00 Anesthesiologist:: Eric Vale CRNA Complications:: None Pre-procedure Diagnosis:: Degenerative disc lumbar spine multilevels. Lumbar radiculopathy. Lumbar spondylosis. Multilevel lumbar facet arthropathy. Post-procedure Diagnosis:: Same. Indications for Procedure:: This patient is a very pleasant 64-year-old male comes to the clinic today for bilateral L4-5, L5-S1 radiofrequency ablation. Patient responded very well to previous facet blocks/medial branch blocks at the same levels. He describes low lumbar back pain as constant, dull, aching. He reports having difficulty with flexion, extension, left and right rotation of the lumbar spine. He rates his pain 7/10. Procedure Details:: Procedure Details: Lumbar RFA Informed consent was obtained and the risk and benefits of the procedure was explained to the patient. Patient was placed prone on the procedure table. The patient was prepped and draped in sterile fashion. C-arm fluoroscopy was used to view the lumbar spine. The skin and subcutaneous tissues were anesthetized using lidocaine. I placed 20-gauge RF needles into the facet joints of L3-L4, L4-L5 and L5-S1 bilaterally. We underwent sensory stimulation. There is good sensory stimulation at 0.8 V. We underwent motor stimulation. There is no motor stimulation at 2 V. We then anesthetized these levels with lidocaine and Depo- Medrol. I used a total of 40 mg Depo-Medrol for all 3 levels. I then burned all 3 levels of L3-L4, L4-5 and L5-S1 bilaterally for 4 minutes at 80 ?C. Patient tolerated the procedure well with no complication. Plan and Disposition:: We will follow-up with this patient in 2 weeks. We will reevaluate her symptoms at that time. Plan and Disposition:: Patient was discharged without incident.
[2024-08-13 13:57] VITALS: BP 146/92; PULSE 78; RESP 16; O2SAT 97
== END 2024-08-13 13:57 | disposition home or self-care (01) ==
PROVIDERS: PCP Family Medicine; Visit Provider Nurse Anesthetist, Certified Registered
DX: M47.816 Spondylosis without myelopathy or radiculopathy, lumbar region (principal); M51.16 Intervertebral disc disorders with radiculopathy, lumbar region
CPT/HCPCS: 64635; 64636; J1010

== ENCOUNTER 2024-08-28 13:17 | Outpatient (POV) | payer MEDICARE, MEDICAID, SELFPAY ==
--- NOTE | 2024-08-28 13:39 | A.OFFVIS_ITS ---
[facility] Disclaimer: The information contained in this section may have been updated after the patient was seen, as this information can be updated by other users. Medical History Hypothyroidism Transaminitis Renal insufficiency Hypokalemia Bilateral knee pain Lumbar radiculopathy History of gastric polyp Barretts esophagus Hypertension Obesity (BMI 35.0-39.9 without comorbidity) Erosive (osteo)arthritis Back pain History of head and neck cancer Chronic pain Surgical History History of knee replacement Hx of endoscopy Social History Smoking Status: Never smoker second hand exposure: Yes alcohol intake: former substance use type: marijuana current occupational status: other Travel in the last 8 weeks: None household members: none housing: apartment current occupational exposures/hazards: No caffeine: Yes PM Subjective & Objective Subjective Subjective:: Patient is a pleasant 64-year-old male who presents today for follow-up of his lumbar RFA bilaterally L4-L5 and L5-S1 on 08/13/2024. Today he rates his pain a 0 out of 10. Patient states that he had at least 90% improvement following this procedure and feels like it is still working well. He does state that he has noticed a little bit more of his mid back pain however this is very manageable. Patient does state that he went and poured 81 yards of concrete 2 days after having this procedure and had no issues whatsoever. Patient states he is very pleased with how well this is gone. His Rubens has been reviewed and is appropriate. Review of Systems: General: No recent weight changes, no fever, no sleep disturbances Respiratory: No cough, no shortness of air, no recurring pulmonary infections Cardiovascular/peripheral vascular: No chest pain, no palpitations, no edema, no shortness of breath Gastrointestinal: No new onset incontinence, normal bowel movements reported Genitourinary: No new onset incontinence Musculoskeletal: Mid back pain Psychiatric: [Normal mood/affect] Neurological: [Denies weakness in extremities], [denies balance issues] Pain at rest (0-10 scale): 0 Objective Objective:: Physical Exam: General: Alert and oriented x3, no acute distress, pleasant and cooperative Lungs: Respirations even and unlabored, symmetrical chest expansion Eyes: PERRL Musculoskeletal: Flexion and extension of thoracic [spine] somewhat guarded secondary to pain, [antalgic gait noted] Neurological: Speech clear, no gross sensory deficit Has patient had previous pain injection?: Yes Percent improvement in pain since last injection: 90% Conservative treatment options previously tried: Home exercise plan Length of treatment: Longer than 12 weeks Meds Home Medications and Allergies Home Medications ?Medication ?Instructions ?Recorded ?Confirmed ?Type aspirin 81 mg tablet,delayed 81 mg PO DAILY heart 03/30/20 08/15/24 History release (Adult Aspirin Regimen) inhalational spacing device #10 ea 06/16/23 08/15/24 Rx (Aerochamber MV spacer) amlodipine 10 mg tablet (Norvasc) 10 mg PO DAILY BLOOD PRESSURE #90 10/19/23 08/15/24 Rx tabs hydrochlorothiazide 25 mg tablet See Rx Instructions .Route 10/19/23 08/15/24 Rx .COMPLEX Fluid #90 tabs pantoprazole 40 mg tablet,delayed See Rx Instructions .Route 11/16/23 08/15/24 Rx release .COMPLEX GERD #180 tabs trazodone 150 mg tablet 150 mg PO DAILY #90 tabs 01/17/24 08/15/24 Rx albuterol sulfate 90 mcg/actuation See Rx Instructions .Route 01/29/24 08/15/24 Rx aerosol inhaler .COMPLEX #8.5 grams losartan 100 mg tablet 100 mg PO DAILY BLOOD PRESSURE #90 02/14/24 08/15/24 Rx tabs potassium chloride 10 mEq 10 meq PO DAILY Supplement #90 tabs 02/14/24 08/15/24 Rx tablet,extended release cyclobenzaprine 10 mg tablet 10 mg PO Q8H #90 tabs 04/15/24 08/15/24 Rx desvenlafaxine succinate 50 mg 50 mg PO DAILY #90 tabs 05/13/24 08/15/24 Rx tablet,extended release 24 hr (Pristiq) ibuprofen 800 mg tablet 800 mg PO Q8H #90 tabs 05/24/24 08/15/24 Rx semaglutide (weight loss) 0.25 0.25 mg (0.5 mL) SQ WEEKLY Weight 06/18/24 08/15/24 Rx mg/0.5 mL subcutaneous pen loss #2 mL injector (Wegovy) levothyroxine 88 mcg tablet 88 mcg PO DAILY #90 tabs 06/24/24 08/15/24 Rx (Synthroid) atorvastatin 20 mg tablet (Lipitor) 20 mg PO DAILY #90 tabs 07/04/24 08/15/24 Rx metoprolol tartrate 100 mg tablet See Rx Instructions .Route 07/09/24 08/15/24 Rx .COMPLEX BLOOD PRESSURE #180 tabs hydralazine 50 mg tablet 50 mg PO TID #90 tabs 07/10/24 08/15/24 Rx fluorouracil 5 % topical cream See Rx Instructions .Route 07/15/24 08/15/24 Rx .COMPLEX #40 grams semaglutide (weight loss) 0.5 0.5 mg (0.5 mL) SQ WEEKLY #2 mL 07/15/24 08/15/24 Rx mg/0.5 mL subcutaneous pen injector (Wegovy) oxycodone 10 mg tablet 10 mg PO TID PRN pain #90 tabs 08/15/24 08/15/24 Rx New Prescriptions to Start Prescriptions: Allergies Allergy/AdvReac Type Severity Reaction Status Date / Time No Known Allergies Allergy Verified 08/15/24 09:13 Assessment and Plan *Assessment and plan (1) Lumbar facet arthropathy: Status: Acute Category: Medical Code(s): M47.816 - Spondylosis without myelopathy or radiculopathy, lumbar region Plan Patient has had significant improvement following his lumbar RFA and does not require any additional injection therapy at this time. Patient will return to clinic and 1 month for reevaluation of symptoms and plan of care. Patient has been instructed to contact the clinic with any concerns before the next appointment. Dr. Garcia has reviewed this note and agrees with this plan of care. This note was dictated using voice recognition software and make contain errors or omissions. All injections are used with Lidocaine or Bupivacaine and Depo Medrol.
[2024-08-28 14:00] VITALS: BP 145/70; PULSE 79; RESP 16; O2SAT 97; BMI 41.8
== END 2024-08-28 23:59 | disposition home or self-care (01) ==
LOC: SC.PAIN 13:18
PROVIDERS: PCP Family Medicine; Visit Provider Nurse Practitioner Family
DX: M47.816 Spondylosis without myelopathy or radiculopathy, lumbar region (principal); Z96.659 Presence of unspecified artificial knee joint; Z79.899 Other long term (current) drug therapy
CPT/HCPCS: 99212; G0463

== ENCOUNTER 2024-11-11 10:30 | Outpatient (CLI) | payer MEDICARE, MEDICAID, SELFPAY ==
[2024-11-11 21:39] LABS: Prostate Specific Ag Screen 4.5 ng/ml (0.0-4.0)
== END 2024-11-11 23:59 | disposition home or self-care (01) ==
LOC: LAB.DROPOF 11-12 09:44
PROVIDERS: PCP Family Medicine; Visit Provider Family Medicine
DX: Z12.5 Encounter for screening for malignant neoplasm of prostate (principal)
CPT/HCPCS: G0103

== ENCOUNTER 2025-01-02 11:00 | Outpatient (POV) | payer MEDICARE, MEDICAID, SELFPAY ==
--- NOTE | 2025-01-02 11:36 | EXP.PAIN.SOA ---
[facility] Disclaimer: The information contained in this section may have been updated after the patient was seen, as this information can be updated by other users. Medical History Hypothyroidism Transaminitis Renal insufficiency Hypokalemia Bilateral knee pain Lumbar radiculopathy History of gastric polyp Barretts esophagus Hypertension Obesity (BMI 35.0-39.9 without comorbidity) Erosive (osteo)arthritis Back pain History of head and neck cancer Chronic pain Surgical History History of knee replacement Hx of endoscopy Social History Smoking Status: Never smoker second hand exposure: Yes alcohol intake: former substance use type: marijuana current occupational status: other Travel in the last 8 weeks: None household members: none housing: apartment current occupational exposures/hazards: No caffeine: Yes PM Subjective & Objective Subjective Subjective:: Review of Systems: General: No recent weight changes, no fever, no sleep disturbances Respiratory: No cough, no shortness of air, no recurring pulmonary infections Cardiovascular/peripheral vascular: No chest pain, no palpitations, no edema, no shortness of breath Gastrointestinal: No new onset incontinence, normal bowel movements reported Genitourinary: No new onset incontinence Musculoskeletal: Low back pain, right sided Psychiatric: [Normal mood/affect] Neurological: [Denies weakness in extremities], [denies balance issues] Pain at rest (0-10 scale): 8 Objective Objective:: Physical Exam: General: Alert and oriented x3, no acute distress, pleasant and cooperative Lungs: Respirations even and unlabored, symmetrical chest expansion Eyes: PERRL Musculoskeletal: Flexion and extension of lumbar [spine] somewhat guarded secondary to pain, [antalgic gait noted] point tenderness along right SI with positive right Velia's, Nancy's, Gaenslen's, compression and distraction exam Neurological: Speech clear, no gross sensory deficit Has patient had previous pain injection?: No Conservative treatment options previously tried: Home exercise plan Length of treatment: Longer than 12 Meds Home Medications and Allergies Home Medications ?Medication ?Instructions ?Recorded ?Confirmed ?Type aspirin 81 mg tablet,delayed 81 mg PO DAILY heart 03/30/20 11/11/24 History release (Adult Aspirin Regimen) inhalational spacing device #10 ea 06/16/23 11/11/24 Rx (Aerochamber MV spacer) trazodone 150 mg tablet 150 mg PO DAILY #90 tabs 01/17/24 11/11/24 Rx albuterol sulfate 90 mcg/actuation See Rx Instructions .Route 01/29/24 11/11/24 Rx aerosol inhaler .COMPLEX #8.5 grams losartan 100 mg tablet 100 mg PO DAILY BLOOD PRESSURE #90 02/14/24 11/11/24 Rx tabs potassium chloride 10 mEq 10 meq PO DAILY Supplement #90 tabs 02/14/24 11/11/24 Rx tablet,extended release cyclobenzaprine 10 mg tablet 10 mg PO Q8H #90 tabs 04/15/24 11/11/24 Rx desvenlafaxine succinate 50 mg 50 mg PO DAILY #90 tabs 05/13/24 11/11/24 Rx tablet,extended release 24 hr (Pristiq) semaglutide (weight loss) 0.25 0.25 mg (0.5 mL) SQ WEEKLY Weight 06/18/24 11/11/24 Rx mg/0.5 mL subcutaneous pen loss #2 mL injector ([employer]) levothyroxine 88 mcg tablet 88 mcg PO DAILY #90 tabs 06/24/24 11/11/24 Rx (Synthroid) atorvastatin 20 mg tablet (Lipitor) 20 mg PO DAILY #90 tabs 07/04/24 11/11/24 Rx metoprolol tartrate 100 mg tablet See Rx Instructions .Route 07/09/24 11/11/24 Rx .COMPLEX BLOOD PRESSURE #180 tabs semaglutide (weight loss) 0.5 0.5 mg (0.5 mL) SQ WEEKLY #2 mL 07/15/24 11/11/24 Rx mg/0.5 mL subcutaneous pen injector ([employer]) amlodipine 10 mg tablet (Norvasc) 10 mg PO DAILY BLOOD PRESSURE #90 09/20/24 11/11/24 Rx tabs hydralazine 50 mg tablet 50 mg PO TID #90 tabs 09/20/24 11/11/24 Rx hydrochlorothiazide 25 mg tablet See Rx Instructions .Route 09/20/24 11/11/24 Rx .COMPLEX Fluid #90 tabs pantoprazole 40 mg tablet,delayed See Rx Instructions .Route 09/20/24 11/11/24 Rx release .COMPLEX GERD #180 tabs azithromycin 250 mg tablet See Rx Instructions PO .COMPLEX #6 09/30/24 11/11/24 Rx tabs dextromethorphan-guaifenesin ER 60 1 tab PO Q12H #60 tabs 09/30/24 11/11/24 Rx mg-1,200 mg tab,extend release,12hr prednisone 20 mg tablet 20 mg PO .COMPLEX #15 tabs 09/30/24 11/11/24 Rx cefdinir 300 mg capsule 300 mg PO BID 10 days #20 caps 10/11/24 11/11/24 Rx semaglutide (weight loss) 1 mg/0.5 1 mg (0.5 mL) SQ Q7D #2 mL 10/11/24 11/11/24 Rx mL subcutaneous pen injector (Wegovy) oxycodone 5 mg tablet 5 mg PO Q8H PRN pain #90 tabs 11/11/24 11/11/24 Rx New Prescriptions to Start Prescriptions: Allergies Allergy/AdvReac Type Severity Reaction Status Date / Time No Known Allergies Allergy Verified 11/11/24 10:03 Assessment and Plan *Assessment and plan (1) Sacroiliitis: Status: Acute Category: Medical Code(s): M46.1 - Sacroiliitis, not elsewhere classified Plan Patient is experiencing worsening pain along the low back and right hip. They did have limited range of motion of the lumbar spine along with point tenderness along right l SI joints and a positive right Velia's, Nancy's, Gaenslen's, compression and distraction exam. I did discuss with the patient that I do believe they would benefit from right SI injections. Risk and benefits were discussed with the patient and they would like to proceed forward with this option. Patient has tried and failed conservative therapy including continued at home stretching exercise for longer than 12 weeks in between injection. Patient does have chronic pain in his low back that has been present for longer than 3 months. This will be a diagnostic SI injection with less than 1 mL of solution to be injected. If he does get significant relief we will most likely plan on repeating the diagnostic injection when the pain does return with the possibility of SI fusion in the future. Patient will be scheduled for right SI injections under fluoroscopy. Patient has been instructed to contact the clinic with any concerns before the next appointment. Dr. Garcia has reviewed this note and agrees with this plan of care. This note was dictated using voice recognition software and make contain errors or omissions. All injections are used with Lidocaine or Bupivacaine and Depo Medrol.
[2025-01-02 13:25] VITALS: BP 151/87; BP 153/86; PULSE 68; RESP 14; O2SAT 97; BMI 41.8
== END 2025-01-02 23:59 | disposition home or self-care (01) ==
LOC: SC.PAIN 11:02
PROVIDERS: PCP Family Medicine; Visit Provider Nurse Practitioner Family
DX: M46.1 Sacroiliitis, not elsewhere classified (principal); Z96.659 Presence of unspecified artificial knee joint; Z79.899 Other long term (current) drug therapy
CPT/HCPCS: 99212; G0463

== ENCOUNTER 2025-01-08 10:04 | Outpatient (CLI) | payer MEDICARE, MEDICAID, SELFPAY ==
[2025-01-08 18:10] LABS: Basophils # 0.1 K/mm3 (0-0.2); Basophils % 0.7 % (0.1-2.0); Eosinophils # 0.3 K/mm3 (0.0-0.4); Eosinophils % 3.6 % (0.1-12.0); Hematocrit 44.3 % (42.0-52.0); Hemoglobin 14.9 g/dL (14.1-18.0); Lymphocytes # 1.1 K/mm3 (0.7-4.5); Mean Corpuscular HGB Conc 33.6 g/dL (31.8-35.4); Mean Corpuscular Hemoglobin 29.2 pg (27.0-31.2); Mean Corpuscular Volume 86.9 fl (80-94); Mean Platelet Volume 11.9 fl (7.4-10.4); Monocytes # 0.7 K/mm3 (0.1-1.0); Monocytes % 9.6 % (1.7-9.3); Neutrophils # 5.3 K/mm3 (1.8-7.8); Neutrophils % 70.4 % (37.0-80.0); Platelet Count 229 K/mm3 (142-424); Red Cell Distribution Width 13.7 % (11.5-17.5); White Blood Count 7.5 K/mm3 (4.8-10.8)
[2025-01-08 20:12] LABS: Chloride 103 mmol/L (98-107)
[2025-01-08 20:13] LABS: Albumin Level 4.1 g/dl (3.5-5.0); Potassium 3.5 mmoL/L (3.5-5.1); Sodium 141 mmol/L (136-145)
[2025-01-08 20:16] LABS: Alanine Aminotransferase 45 U/L (12-78); Albumin/Globulin Ratio 1.6 (1.1-1.8); Alkaline Phosphatase 122 U/L (38-126); Anion Gap 13.5 mEq/L (5-15); Aspartate Amino Transferase 37 U/L (17-59); Bilirubin,Total 0.6 mg/dl (0.2-1.3); Blood Urea Nitrogen 17 mg/dl (9-20); Calcium 9.1 mg/dl (8.4-10.2); Carbon Dioxide 28 mmol/L (22.0-30.0); Cholesterol 160 mg/dl (140-200); Estimated Glomerular Filt Rate 75 ml/min (>60); GFR (African American) 91 ML/MIN (>60); Globulin 2.5 g/dL (1.3-3.2); Glucose 111 mg/dl (74-100); Total Protein,Serum 6.6 g/dl (6.3-8.2); Triglycerides 150 mg/dl (30-150); VLDL Cholesterol 30 mg/dL (0-40)
[2025-01-08 20:17] LABS: Chol/HDL Ratio 3.7 (1-3.5); HDL Cholesterol 43 mg/dl (40-60)
[2025-01-08 20:28] LABS: Direct LDL Cholesterol 85.01 mg/dL (100-129)
[2025-01-08 20:57] LABS: HIV Combo NEGATIVE (Negative)
[2025-01-08 21:07] LABS: Hepatitis C Ab Qual. W/ RFX NEGATIVE (Negative)
[2025-01-08 21:29] LABS: Hemoglobin A1C 5.2 % (4.0-6.0)
== END 2025-01-08 23:59 | disposition home or self-care (01) ==
LOC: LAB.DROPOF 01-09 09:07
PROVIDERS: PCP Family Medicine; Visit Provider Family Medicine
DX: I10 Essential (primary) hypertension (principal); G89.29 Other chronic pain; Z11.59 Encounter for screening for other viral diseases; Z79.85 Long-term (current) use of injectable non-insulin antidiabetic drugs; M46.1 Sacroiliitis, not elsewhere classified; R63.5 Abnormal weight gain; Z68.41 Body mass index [BMI] 40.0-44.9, adult
CPT/HCPCS: 80053; 80061; 83036; 84443; 85025; 86803; 87389

== ENCOUNTER 2025-02-08 14:22 | Emergency (ER) | payer MEDICARE, MEDICAID, SELFPAY ==
[2025-02-08] VITALS (11 sets, daily range): BP systolic 91–137; BP diastolic 47–80; PULSE 75–100; RESP 11–24; TEMP 36.6–36.9; O2SAT 95–100; BMI 39.5
--- NOTE | 2025-02-08 14:23 | XR_ITS ---
PROCEDURE INFORMATION: Exam: XR Chest Exam date and time: 02/08/2025 2:56 PM Age: 65 years old Clinical indication: Pain; Chest pressure; Additional info: Chest pain TECHNIQUE: Imaging protocol: Radiologic exam of the chest. Views: 1 view. COMPARISON: CR XR THORACIC SPINE 3V 01/09/2023 9:46 AM FINDINGS: Lungs: Unremarkable. No consolidation. Pleural spaces: Unremarkable. No pleural effusion. No pneumothorax. Heart/Mediastinum: Unremarkable. No cardiomegaly. Bones/joints: Unremarkable. IMPRESSION: No acute findings.
--- NOTE | 2025-02-08 14:23 | ECG_ITS ---
APPROVED REPORT Exam: Resting ECG HR:93 bpm ECG Measurements Heart Rate 93 AXES IA 157 P 52 QRSd 94 QRS 36 QT 373 T 44 QTc 423 Conclusion NSR, normal axis, normal intervals, no noted ST elevation Electronically signed by : Pee Denise, 02/09/2025 07:04:02
[2025-02-08 14:37] LABS: Basophils # 0.1 K/mm3 (0-0.2); Basophils % 0.4 % (0.1-2.0); Eosinophils # 0.3 Kmm3 (0.0-0.4); Eosinophils % 2.8 % (0.1-12.0); Hemoglobin 15.3 g/dL (14.1-18.0); Lymphocytes # 2.1 K/mm3 (0.7-4.5); Lymphocytes % 18.5 % (10-50); Mean Corpuscular HGB Conc 35.6 g/dL (31.8-35.4); Mean Corpuscular Volume 81.6 fl (80-94); Mean Platelet Volume 11.3 fl (7.4-10.4); Monocytes % 9.3 % (1.7-9.3); Neutrophils # 7.7 K/mm3 (1.8-7.8); Neutrophils % 68.8 % (37.0-80.0); Nucleated Red Blood Cells # 0 10^3/uL; Nucleated Red Blood Cells % 0 %; Platelet Count 268 K/mm3 (142-424); Red Blood Count 5.27 M/mm3 (4.60-6.20); Red Cell Distribution Width 13.2 % (11.5-17.5); White Blood Count 11.1 K/mm3 (4.8-10.8)
[2025-02-08 14:50] LABS: Alanine Aminotransferase 35 U/L (12-78); Albumin Level 4.3 g/dl (3.5-5.0); Albumin/Globulin Ratio 1.3 (1.1-1.8); Alkaline Phosphatase 128 U/L (38-126); Anion Gap 8.1 mEq/L (5-15); Aspartate Amino Transferase 34 U/L (17-59); Bilirubin,Total 0.7 mg/dl (0.2-1.3); Blood Urea Nitrogen 38 mg/dl (9-20); Calcium 9.6 mg/dl (8.4-10.2); Carbon Dioxide 30 mmol/L (22.0-30.0); Chloride 105 mmol/L (98-107); Creatinine Clearance Estimated 73 mL/min (50-200); Estimated Glomerular Filt Rate 41 ml/min (>60); GFR (African American) 49 ML/MIN (>60); Globulin 3.3 g/dL (1.3-3.2); Glucose 98 mg/dl (74-100); Potassium 3.1 mmoL/L (3.5-5.1); Sodium 140 mmol/L (136-145); Total Protein,Serum 7.6 g/dl (6.3-8.2)
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
[2025-02-08 14:56] LABS: D-Dimer 0.66 ug/mL (0.0-0.5)
--- NOTE | 2025-02-08 15:00 | ED_ITS ---
<Statement entered by Pee Denise DO - 02/09/25 09:12> I was consulted by the ROSHAN, and we discussed the complexity of the problem being addressed. I approve the treatment and management plan for this patient's care in the emergency department, thus performing a substantive portion of the medical decision making. Pee Denise DO Discharge Plan Disposition Patient Disposition: Home, Self-Care Condition: Good Prescriptions Prescriptions: Held losartan 100 mg tablet 100 mg PO DAILY Qty: 90 3RF Hold Instructions: Resume on 02/10/25. Until spoken with Julien or PCP office hydrochlorothiazide 25 mg tablet 25 mg PO DAILY Hold Instructions: Resume on 02/10/25. Until spoken with Dr. Victoria's office Patient Comments: TAKE 1 TABLET BY MOUTH EVERY DAY FOR FLUID No Action aspirin [Adult Aspirin Regimen] 81 mg tablet,delayed release (DR/EC) 81 mg PO DAILY (DME) Aerochamber MV Spacer See Rx Instructions .Route Qty: 10 0RF Rx Instructions: As directed torsemide 20 mg tablet 20 mg PO DAILY Qty: 90 3RF potassium chloride 20 mEq tablet extended release 20 meq PO DAILY Qty: 90 3RF isosorbide mononitrate 60 mg tablet extended release 24 hr 60 mg PO DAILY Qty: 30 2RF nitroglycerin 0.4 mg tablet, sublingual 0.4 mg sublingual Q5M PRN (Reason: chest pain) Qty: 25 0RF Rx Instructions: do not exceed 3 doses per episode albuterol sulfate 90 mcg/actuation HFA aerosol inhaler See Rx Instructions .ROUTE .COMPLEX Qty: 8.5 10RF Dose Instruction: USE 2 PUFF INHALED FOUR TIMES A DAY NEEDED FOR SHORTNESS OF BREATH OR WHEEZING Rx Instructions: USE 2 PUFF INHALED FOUR TIMES A DAY NEEDED FOR SHORTNESS OF BREATH OR WHEEZING levothyroxine [Synthroid] 88 mcg tablet 88 mcg PO DAILY Qty: 90 3RF atorvastatin [Lipitor] 20 mg tablet 20 mg PO DAILY Qty: 90 3RF metoprolol tartrate 100 mg tablet See Rx Instructions .ROUTE .COMPLEX Qty: 180 3RF Rx Instructions: TAKE 1 TABLET BY MOUTH 2 TIMES A DAY amlodipine [Norvasc] 10 mg tablet 10 mg PO DAILY Qty: 90 3RF pantoprazole 40 mg tablet,delayed release (DR/EC) See Rx Instructions .ROUTE .COMPLEX Qty: 180 3RF Rx Instructions: TAKE 1 TABLET BY MOUTH ONCE A DAY FOR ACID REFLUX hydralazine 50 mg tablet 50 mg PO TID Qty: 90 2RF oxycodone 5 mg tablet 5 mg PO Q8H PRN (Reason: pain) Qty: 90 0RF Wegovy 1 mg/0.5 mL pen injector 1 mg SQ WEEKLY Qty: 2 3RF Rx Instructions: administer weeks 9 through 12 of therapy Referrals Follow up/Referrals: Pee Sheridan MD [Primary Care Provider] - See instructions Activity Restrictions/Add. Instructions Additional Instructions/Restrictions: Increase fluid intake Hold losartan and HCTZ until spoken with cardiology or PCP office to okay to continue Follow-up with PCP on Monday If symptoms return or worsen return to the ER for evaluation Monitor blood pressure Clinical Impressions Clinical Impression: Acute hypotension, Acute hypokalemia, Chest pain Instructions Patient Instructions: DI for Hypotension, DI for Hypokalemia, DI for Chest Pain Print Language Print Language: Tunisian Discharge ED Provider: Pee Denise General Adult HPI <Camacho Clark ([facility]), PULP REFINER OPERATOR - Last Filed: 02/08/25 19:05> General Chief complaint: Chest Pain Stated complaint: Chest pain, LUE numbness Time Seen by Provider: 02/08/25 14:38 Mode of Arrival: Ambulatory Source of Information: Patient Description of Symptoms (Recalled from ER Triage Doc. by RN): patient states yesterday around 8pm he became lightheaded and dizzy checked his BP and noted it to be in the 80s. he then began having substernal chest pain that feels like pressure that comes and goes and pain in between his shoulder blades History of Present Illness HPI narrative: 65-year-old male presents for hypotension and dizziness. Patient states last night he was having intermediate chest pain that would come and go and low blood pressure with dizziness and feeling of lightheadedness. Patient states he called EMS but they was going to take him to [facility] and he did not want to go to [facility] so he waited till today to see if the symptoms remain. Patient states this morning when he got up his blood pressure was still low and he was still having lightheadedness with dizziness and the chest pain that come and go and numbness and tingling that goes down his left arm. Patient reports 6 years ago he had a heart cath done and had 40 to 50% blockages in a couple arteries. Related Data Home Medications ?Medication ?Instructions ?Recorded ?Confirmed aspirin 81 mg tablet,delayed 81 mg PO DAILY heart 03/30/20 01/30/25 release (Adult Aspirin Regimen) hydrochlorothiazide 25 mg tablet 25 mg PO DAILY 01/30/25 01/30/25 Previous Rx's ?Medication ?Instructions ?Recorded inhalational spacing device #10 ea 06/16/23 (Aerochamber MV spacer) albuterol sulfate 90 mcg/actuation See Rx Instructions .Route 01/29/24 aerosol inhaler .COMPLEX #8.5 grams losartan 100 mg tablet 100 mg PO DAILY BLOOD PRESSURE #90 02/14/24 tabs levothyroxine 88 mcg tablet 88 mcg PO DAILY #90 tabs 06/24/24 (Synthroid) atorvastatin 20 mg tablet (Lipitor) 20 mg PO DAILY #90 tabs 07/04/24 metoprolol tartrate 100 mg tablet See Rx Instructions .Route 07/09/24 .COMPLEX BLOOD PRESSURE #180 tabs amlodipine 10 mg tablet (Norvasc) 10 mg PO DAILY BLOOD PRESSURE #90 09/20/24 tabs hydralazine 50 mg tablet 50 mg PO TID #90 tabs 09/20/24 pantoprazole 40 mg tablet,delayed See Rx Instructions .Route 09/20/24 release .COMPLEX GERD #180 tabs potassium chloride 20 mEq 20 meq PO DAILY #90 tabs 01/08/25 tablet,extended release torsemide 20 mg tablet 20 mg PO DAILY #90 tabs 01/08/25 isosorbide mononitrate 60 mg 60 mg PO DAILY #30 tabs 01/30/25 tablet,extended release 24 hr nitroglycerin 0.4 mg sublingual 0.4 mg sublingual Q5M PRN chest 01/30/25 tablet pain #25 tabs oxycodone 5 mg tablet 5 mg PO Q8H PRN pain #90 tabs 02/07/25 semaglutide (weight loss) 1 mg/0.5 1 mg (0.5 mL) SQ WEEKLY #2 mL 02/07/25 mL subcutaneous pen injector (Wegovy) Allergies Allergy/AdvReac Type Severity Reaction Status Date / Time No Known Allergies Allergy Verified 01/30/25 13:26 PFSH <[facility] PULP REFINER OPERATOR - Last Filed: 02/08/25 19:05> [facility] Disclaimer: The information contained in this section may have been updated after the patient was seen, as this information can be updated by other users. Medical History , PULP REFINER OPERATOR) Hypothyroidism Transaminitis Renal insufficiency Hypokalemia Bilateral knee pain Lumbar radiculopathy History of gastric polyp Barretts esophagus Hypertension Obesity (BMI 35.0-39.9 without comorbidity) Erosive (osteo)arthritis Back pain History of head and neck cancer Chronic pain Surgical History , PULP REFINER OPERATOR) History of knee replacement Hx of endoscopy Social History , PULP REFINER OPERATOR) Smoking Status: Never smoker second hand exposure: Yes alcohol intake: former substance use type: marijuana current occupational status: other Travel in the last 8 weeks?: None household members: none housing: apartment current occupational exposures/hazards: No caffeine: Yes Have you lived/traveled outside US in past 30 days?: No Contact w/someone who lives/traveled outside US past 30 days?: No Exposure to someone with infectious disease in past 14 days?: No Do you have a fever (greater than 100.4 F or 38 C)?: No Have you tested positive for COVID-19?: No Exposed to someone with COVID-19 in past 14 days?: No Do you have a sore throat?: No Do you have a cough?: No Do you have any weakness?: No Do you have any diarrhea?: No Are you experiencing any unusual bleeding?: No Do you have any muscle aches/pain?: No Do you have any abdominal pain?: No Are you experiencing loss of taste or smell?: No Other Medical History Have you received the Flu Vaccine for this season: Yes Have you received the Pneumonia Vaccine: No <Camacho [facility]rien[facility], PULP REFINER OPERATOR - Last Filed: 02/08/25 19:05> ROS Obtained: Yes Systems reviewed as appropriate & no additional complaints except as documented Physical Exam <Camacho [facility]), PULP REFINER OPERATOR - Last Filed: 02/08/25 19:05> General General appearance: alert and in no apparent distress Head Head exam: atraumatic ENT ENT exam: Present normal exam Chest Chest inspection: Present normal inspection Respiratory Respiratory exam: Present normal lung sounds bilaterally Cardiovascular Cardiovascular exam: Present regular rate and normal rhythm Abdominal Exam Abdominal exam: Present soft and normal bowel sounds Neurological Exam Neurological exam: Present alert and oriented X3 Skin Skin exam: Present warm and intact Medical Decision Making <Ashleyjoycelouis Brownricardo ([facility]), PULP REFINER OPERATOR - Last Filed: 02/08/25 19:05> Medical Records Medical records reviewed: Yes I reviewed the patient's medical records. Screening: Per USPSTF and CDC recommendations, given the prevalence of disease in our region, it is our hospital?s policy to screen for HIV and viral Hepatitis for all patients aged 18 and over and those with ongoing risk factors. Rubens Inquiry Pt receiving controlled substance: No Vital Signs: 02/08/25 14:30 02/08/25 15:30 02/08/25 16:00 Temperature 98.5 F Temperature Source Oral Pulse Rate 84 Pulse Rate [Right Radial] 100 H Respiratory Rate 19 11 L 20 Blood Pressure 95/60 L 94/54 L Blood Pressure [Right Arm] 137/80 Blood Pressure Mean 71 Blood Pressure Mean [Right Arm] 99 Blood Pressure Source [Right Arm] Automatic Cuff Blood Pressure Position [Right Arm] Supine 02 Sat by Pulse Oximetry 100 95 95 Oxygen Delivery Method Room Air Room Air 02/08/25 16:30 02/08/25 17:00 02/08/25 17:04 Temperature Temperature Source Pulse Rate 82 83 Pulse Rate [Right Radial] Respiratory Rate 12 18 24 Blood Pressure 91/54 L 96/49 L 111/56 L Blood Pressure [Right Arm] Blood Pressure Mean Blood Pressure Mean [Right Arm] Blood Pressure Source [Right Arm] Blood Pressure Position [Right Arm] 02 Sat by Pulse Oximetry 95 96 96 Oxygen Delivery Method Room Air Room Air Room Air 02/08/25 17:31 02/08/25 18:00 02/08/25 18:23 Temperature Temperature Source Pulse Rate 79 80 75 Pulse Rate [Right Radial] Respiratory Rate 24 Blood Pressure 94/47 L 94/47 L 103/59 L Blood Pressure [Right Arm] Blood Pressure Mean Blood Pressure Mean [Right Arm] Blood Pressure Source [Right Arm] Blood Pressure Position [Right Arm] 02 Sat by Pulse Oximetry 95 96 95 Oxygen Delivery Method Room Air Room Air Room Air 02/08/25 18:31 Temperature Temperature Source Pulse Rate 83 Pulse Rate [Right Radial] Respiratory Rate Blood Pressure 107/62 L Blood Pressure [Right Arm] Blood Pressure Mean Blood Pressure Mean [Right Arm] Blood Pressure Source [Right Arm] Blood Pressure Position [Right Arm] 02 Sat by Pulse Oximetry 95 Oxygen Delivery Method Room Air Lab Data Lab results reviewed: Yes I reviewed the patient's lab results. Lab Results 02/08/25 14:25: WBC 11.1 H, RBC 5.27, Hgb 15.3, Hct 43.0, MCV 81.6, MCH 29.0, M CHC 35.6 H, RDW 13.2, Plt Count 268, MPV 11.3 H, Neut % (Auto) 68.8, Lymph % (Auto) 18.5, Hunt % (Auto) 9.3, Eos % (Auto) 2.8, Baso % (Auto) 0.4, Neut # (Auto) 7.7, Lymph # (Auto) 2.1, Hunt # (Auto) 1.0, Eos # (Auto) 0.3, Baso # (Auto) 0.1, D-Dimer 0.66 H, Sodium 140, Potassium 3.1 L, Chloride 105, Carbon Dioxide 30, Anion Gap 8.1, BUN 38 H, Creatinine 1.70 H, Estimated Creat Clear 73, Estimated GFR 41 L, Est GFR ( Amer) 49 L, Glucose 98, Calcium 9.6, Total Bilirubin 0.7, AST 34, ALT 35, Alkaline Phosphatase 128 H, Troponin I < 0.01, NT-Pro-B Natriuret Pep 27.9, Total Protein 7.6, Albumin 4.3, Globulin 3.3 H, Albumin/Globulin Ratio 1.3 02/08/25 17:05: Troponin I < 0.01 02/08/25 14:25 02/08/25 14:25 Orders (Tests/Meds): ED MEDICATIONS Discontinued Medications Generic Name Dose Route Start Last Admin Trade Name Freq PRN Reason Stop Dose Admin Sodium Chloride 1,000 mls @ 999 mls/hr 02/08/25 17:45 02/08/25 17:51 Sod Chlor 0.9% 1000ml Bag IV 02/08/25 18:45 999 mls/hr .Q1H1M ONE Administration Potassium Chloride 40 meq 02/08/25 17:53 02/08/25 17:57 Potassium Chloride 20meq Tab PO 02/08/25 17:54 40 meq ONCE ONE Administration ORDERS Category Date Time Status XR chest portable Stat Exams 02/08/25 14:23 Completed Complete Blood Count Auto Diff Stat Lab 02/08/25 14:25 Completed Comprehensive Metabolic Panel Stat Lab 02/08/25 14:25 Completed D-Dimer Stat Lab 02/08/25 14:25 Completed NT Pro Brain Natriuretic Pep. Stat Lab 02/08/25 14:25 Completed Troponin I Q3H Lab 02/08/25 17:05 Completed Troponin I Q3H Lab 02/08/25 20:30 Ordered Troponin I Stat Lab 02/08/25 14:25 Completed Medical Decision Narrative: In summary patient is a 65-year-old male who presents to the emergency department for evaluation of chest pain that comes and goes, lightheadedness, dizziness, low blood pressure, and numbness tingling left arm. Patient is hemodynamically stable upon arrival, afebrile. Unremarkable physical exam. Differential diagnosis includes KS, PE, pneumonia. Initial workup will be conducted with labs, chest x-ray, EKG. Initial inventions include potassium normal saline, 40 of p.o. potassium. Initial workup reviewed by me both sets of troponins were negative, chest x-ray normal potassium 3.1,40meq potassium given p.o, 1000 mL fluid bolus which improved blood pressure last blood pressure was 115/65. Based on years criteria patient was ruled out for PE. Upon repeat evaluation patient states he feels much better. Given this patient was appropriate for discharge at this time will discharge home with follow-up with PCP and cardiology on Monday, hold losartan and HCTZ until speak with cardiology on Monday <Pee Denise, - Last Filed: 02/08/25 15:49> Vital Signs: 02/08/25 14:30 02/08/25 15:30 02/08/25 16:00 Temperature 98.5 F Temperature Source Oral Pulse Rate 84 Pulse Rate [Right Radial] 100 H Respiratory Rate 19 11 L 20 Blood Pressure 95/60 L 94/54 L Blood Pressure [Right Arm] 137/80 Blood Pressure Mean 71 Blood Pressure Mean [Right Arm] 99 Blood Pressure Source [Right Arm] Automatic Cuff Blood Pressure Position [Right Arm] Supine 02 Sat by Pulse Oximetry 100 95 95 Oxygen Delivery Method Room Air Room Air 02/08/25 16:30 02/08/25 17:00 02/08/25 17:04 Temperature Temperature Source Pulse Rate 82 83 Pulse Rate [Right Radial] Respiratory Rate 12 18 24 Blood Pressure 91/54 L 96/49 L 111/56 L Blood Pressure [Right Arm] Blood Pressure Mean Blood Pressure Mean [Right Arm] Blood Pressure Source [Right Arm] Blood Pressure Position [Right Arm] 02 Sat by Pulse Oximetry 95 96 96 Oxygen Delivery Method Room Air Room Air Room Air 02/08/25 17:31 02/08/25 18:00 02/08/25 18:23 Temperature Temperature Source Pulse Rate 79 80 75 Pulse Rate [Right Radial] Respiratory Rate 24 Blood Pressure 94/47 L 94/47 L 103/59 L Blood Pressure [Right Arm] Blood Pressure Mean Blood Pressure Mean [Right Arm] Blood Pressure Source [Right Arm] Blood Pressure Position [Right Arm] 02 Sat by Pulse Oximetry 95 96 95 Oxygen Delivery Method Room Air Room Air Room Air 02/08/25 18:31 Temperature Temperature Source Pulse Rate 83 Pulse Rate [Right Radial] Respiratory Rate Blood Pressure 107/62 L Blood Pressure [Right Arm] Blood Pressure Mean Blood Pressure Mean [Right Arm] Blood Pressure Source [Right Arm] Blood Pressure Position [Right Arm] 02 Sat by Pulse Oximetry 95 Oxygen Delivery Method Room Air Lab Data Lab Results 02/08/25 14:25: WBC 11.1 H, RBC 5.27, Hgb 15.3, Hct 43.0, MCV 81.6, MCH 29.0, M CHC 35.6 H, RDW 13.2, Plt Count 268, MPV 11.3 H, Neut % (Auto) 68.8, Lymph % (Auto) 18.5, Hunt % (Auto) 9.3, Eos % (Auto) 2.8, Baso % (Auto) 0.4, Neut # (Auto) 7.7, Lymph # (Auto) 2.1, Hunt # (Auto) 1.0, Eos # (Auto) 0.3, Baso # (Auto) 0.1, D-Dimer 0.66 H, Sodium 140, Potassium 3.1 L, Chloride 105, Carbon Dioxide 30, Anion Gap 8.1, BUN 38 H, Creatinine 1.70 H, Estimated Creat Clear 73, Estimated GFR 41 L, Est GFR ( Amer) 49 L, Glucose 98, Calcium 9.6, Total Bilirubin 0.7, AST 34, ALT 35, Alkaline Phosphatase 128 H, Troponin I < 0.01, NT-Pro-B Natriuret Pep 27.9, Total Protein 7.6, Albumin 4.3, Globulin 3.3 H, Albumin/Globulin Ratio 1.3 02/08/25 17:05: Troponin I < 0.01 Orders (Tests/Meds): ED MEDICATIONS Discontinued Medications Generic Name Dose Route Start Last Admin Trade Name Freq PRN Reason Stop Dose Admin Sodium Chloride 1,000 mls @ 999 mls/hr 02/08/25 17:45 02/08/25 17:51 Sod Chlor 0.9% 1000ml Bag IV 02/08/25 18:45 999 mls/hr .Q1H1M ONE Administration Potassium Chloride 40 meq 02/08/25 17:53 02/08/25 17:57 Potassium Chloride 20meq Tab PO 02/08/25 17:54 40 meq ONCE ONE Administration ORDERS Category Date Time Status XR chest portable Stat Exams 02/08/25 14:23 Completed Complete Blood Count Auto Diff Stat Lab 02/08/25 14:25 Completed Comprehensive Metabolic Panel Stat Lab 02/08/25 14:25 Completed D-Dimer Stat Lab 02/08/25 14:25 Completed NT Pro Brain Natriuretic Pep. Stat Lab 02/08/25 14:25 Completed Troponin I Q3H Lab 02/08/25 17:05 Completed Troponin I Q3H Lab 02/08/25 20:30 Ordered Troponin I Stat Lab 02/08/25 14:25 Completed ECG Data Tracing #1: I reviewed this ECG and interpreted as documented below: Normal sinus rhythm, normal axis, normal intervals, no noted ST elevation or otherwise noted ectopy Critical Care <Camacho Clark ([facility]), PULP REFINER OPERATOR - Last Filed: 02/08/25 19:05> Critical Care Time Critical Care Time: No
[2025-02-08 15:04] LABS: NT Pro Brain Natriuretic Pep. 27.9 pg/mL (0-125); Troponin I < 0.01 ng/ml (0.00-0.034)
--- NOTE | 2025-02-08 17:27 | PC.NURSE ---
patient has been accepted by Dr. Roberts at [facility] but they stated they more than zara will not have a bed open until tomorrow. patient is aware and okay with plan
[2025-02-08 17:46] LABS: Troponin I < 0.01 ng/ml (0.00-0.034)
[2025-02-08] MEDS: 0.9 % SODIUM CHLORIDE 1000ML 1,000 ML 999 ML IV (17:51)
[2025-02-08] MEDS: POTASSIUM CHLORIDE 20MEQ TAB 40 MEQ PO (17:57)
== END 2025-02-08 19:22 | disposition home or self-care (01) ==
PROVIDERS: Nurse Practitioner Family; Emergency Provider Student in an Organized Health Care Education/Training Program; PCP Family Medicine
DX: R07.89 Other chest pain (principal); E87.6 Hypokalemia; I95.9 Hypotension, unspecified; R42 Dizziness and giddiness
CPT/HCPCS: 71045; 80053; 83880; 84484; 85025; 85378; 93005; 96360; 99285; J7030

== ENCOUNTER 2025-02-20 08:58 | Outpatient (CLI) | payer MEDICARE, MEDICAID, SELFPAY ==
--- NOTE | 2025-02-20 | CA_ITS ---
APPROVED REPORT EXAM: Comprehensive 2D, Doppler, and color-flow Echocardiogram [employer] Man: Jennifer Romeo CRT Ht: 5 ft 8 in Wt: 278lbs BSA: 2.35 BP: 125/73 mmHg Indications: Chest Pain, Shortness of Breath, Fatigue, Hyperlipidemia, Hypertension/HDD, YANG 2D Dimensions LA Volume 40.30 mL LA Volume Index 16.70 mL/m2 (M/F) 16-34 M-Mode Dimensions RVDd 3.21 cm (0.9-2.6) LA Diam 3.27 cm (1.9-4.0) LVDd 4.35 cm (3.5-5.7) LVDs 3.08 cm (3.5-5.7) IVSd 1.14 cm (0.6-1.1) PWd 1.10 cm (0.6-1.1) EF (Teich) 56.30% FS 29.20% EDV (Teich) 85.40 mL TAPSE 2.50 (<1.7) ESV (Teich) 37.30 mL LV Diastology E Decel Time 200 (160-240 msec) E/A Ratio 0.74 MED A' 9.80 cm/s LAT A' 16.20 cm/s Aortic Valve AO Peak GR. 7.20 mmHg Mitral Valve MV A Velocity 87.0 (40-130 cm/s) E/A Ratio 0.74 Pulmonary Valve PV Peak Velocity 115.0 (50-150 cm/s) Tricuspid Valve TR P. Velocity 201.00 cm/s RAP Estimate 10.00 mmHg RVSP 26.10 mmHg Left Ventricle The left ventricle is normal size. The left ventricular systolic function is normal. The left ventricular ejection fraction is within the normal range. There is increased LV wall thickness. There is normal LV segmental wall motion. Transmitral Doppler flow pattern suggests impaired LV relaxation. LVEF is 60%. Right Ventricle The right ventricle is normal size. The right ventricular systolic function is normal. Atria The left atrium size is normal. The right atrium size is normal. There is no Doppler evidence of interatrial shunt. Aortic Valve Aortic valve is mildly thickened. There is no aortic valvular stenosis. Trace aortic regurgitation. Mitral Valve The mitral valve is normal in structure. No evidence of mitral valve stenosis. Trace mitral regurgitation. Tricuspid Valve Tricuspid valve is grossly normal in structure and function. Mild tricuspid regurgitation. RVSP is 20-25 mmHg. Pulmonic Valve The pulmonary valve is normal in structure. Trace pulmonic regurgitation. Great Vessels The aortic root is normal in size. IVC is normal in size and collapses >50% with inspiration. Pericardium There is no pericardial effusion. Other Information Study Quality: Fair Conclusion Normal biventricular systolic function. Mild TR. Electronically signed by : Belgica Gilbert MD 02/26/2025 23:53:57
--- NOTE | 2025-02-20 09:00 | CA_ITS ---
FINAL REPORT CLINICAL HISTORY: HTN,OBESITY COMPARISON: None FINDINGS: Aorta velocity: 99 cm/sec Right kidney: 11.1 cm. No evidence of hydronephrosis or mass. Right intrarenal RI: 0.54-0.62 Right renal artery velocity: 138 cm/sec. Right RAR (Renal artery-Aortic Ratio): 1.4 Left Kidney: 11 cm. No evidence of hydronephrosis or mass. Left intrarenal RI: 0.59-0.62 Left renal artery velocity: 96 cm/sec. Left RAR (Renal Artery-Aortic Ratio): 1.0 IMPRESSION: No evidence of significant renal artery stenosis. CT angiogram or postcontrast MR angiogram would be more sensitive for evaluation of possible renal artery stenosis. Reviewed, Interpreted and Dictated by Robert Herrera MD Transcribed by Dottie Mendoza Authenticated and [facility]
--- OUTSIDE RECORDS SUMMARY | 2025-02-20 09:00 | XMS_ITS | Data Portability ---
Author Organization [place] - [facility] [place] Address [address] [place] [id number] Care Team Providers Care Principal Accounts Clerk Name Role Phone ANTONIA HEARN Primary Care Provider Assessment Encounter Date Assessment Date Assessment LastModified [...] ISCHEMIC EVAL: 09/25/2019. LAST HEART CATH: 09/17/2020 [facility], BILATERAL RENAL ARTERIOGRAPHY. LVEDP 12. MILD DIFFUSE CORONARY ARTERY DISEASE. DIFFUSE CORONARY CALCIFICATION. NO STENTS PLACED. PAST [facility]: 07/23/2013. - Plan: Continue current plan of care. EKG at follow-up. Follow-up in 6 to 7 months. - -Continue other current medications. -Continue aggressive risk factor modification. -Recommend LDL less than 70. -Encouraged regular exercise and activity. - This note was dictated using Wipster software. If something is unclear, or does not make sense, please do not hesitate to contact our office at [phone] for clarification. [email or web address] Not available 08/23/2023 09:02:03 [...] ISCHEMIC EVAL: 09/25/2019. LAST HEART CATH: 09/17/2020 [facility], BILATERAL RENAL ARTERIOGRAPHY. LVEDP 12. MILD DIFFUSE CORONARY ARTERY DISEASE. DIFFUSE CORONARY CALCIFICATION. NO STENTS PLACED. PAST [facility]: 07/23/2013. Leidy Lamas CMA, am scribing for, and in the presence of, Dru Brown MD. Dru Lamas M.D. performed the services as described in this documentation, as scribed by Leidy Aguilar CMA in my presence, and it is both accurate and complete. This note was dictated using Wipster software. If something is unclear, or does not make sense, please do not hesitate to contact our office at [phone] for clarification. [email or web address] Not available 10/16/2023 08:22:25 [...] ISCHEMIC EVAL: 09/25/2019. LAST HEART CATH: 09/17/2020 [facility], BILATERAL RENAL ARTERIOGRAPHY. LVEDP 12. MILD DIFFUSE CORONARY ARTERY DISEASE. DIFFUSE CORONARY CALCIFICATION. NO STENTS PLACED. PAST [facility]: 07/23/2013. - Plan: Continue current plan of care. EKG at follow-up. Follow-up in Cardiology Clinic in 6-8 weeks for re-evaluation - -Continue other current medications. -Continue aggressive risk factor modification. -Recommend LDL less than 70. -Encouraged regular exercise and activity. - This note was dictated using Wipster software. If something is unclear, or does not make sense, please do not hesitate to contact our office at [phone] for clarification. [email or web address] Not available 03/22/2024 10:23:10 Plan of Treatment Reminders Order Date Submit Date Provider Last Modified By Organization Details Last Modified Time Details Appointments None recorded. Lab CBC w/ auto diff 2022 023 KENNETH [facility], [address], [address], [place], [address], 3 03:36:33 CMP, serum or plasma 2022 023 KENNETH [facility], [address], [address], [place], [address], 3 03:36:34 HbA1c (hemoglobin A1c), blood 2022 023 KENNETH [facility], [address], [address], [place], [address], 3 03:36:37 iron + TIBC + ferritin, serum 2022 023 KENNETH [facility], [address], [address], [place], [address], 3 03:36:31 vitamin D, 25-hydroxy, total, serum 2022 023 KENNETH [facility], [address], [address], [place], [address], 3 03:36:39 vitamin A (retinol), serum 2022 023 KENNETH [facility], [address], [address], [place], [address], 3 03:36:38 vitamin E, serum 2022 023 KENNETH [facility], [address], [address], [place], [address], 3 03:36:36 PTH (parathyroi d hormone), intact, serum or plasma 2022 023 KENNETH [facility], [address], [address], [place], [address], 3 03:36:42 lipid panel, serum 2022 023 KENNETH [facility], [address], [address], [place], [address], 3 03:36:35 TSH + free T4, serum 2022 023 KENNETH [facility], [address], [address], [place], [address], 3 03:36:32 folate, serum 2022 023 KENNETH [facility], [address], [address], [place], [address], 3 03:36:38 methylmalon ate, QN, serum or plasma 2022 023 KENNETH [facility], [address], [address], [place], [address], 3 03:36:41 thiamine, QN, blood 2022 023 KENNETH [facility], [address], [address], [place], [address], 3 03:36:41 Referral None recorded. Procedures None recorded. Surgeries esophagogas troduodenos copy (SURG) 2022 023 KENNETH Sanchez MD, [address], [address], [place], [address], 3 11:27:34 Imaging electrocard iogram 2023 [email or web address] [facility], [facility] [address], [place], [address], 4 08:22:48 XR, chest, 2 view [address] (Centralized Scheduling), [address], [place], [address], 4 13:44:18 electrocard iogram, routine ECG, 12 leads min 2022 0[email or web address] M[address] [facility], [address] [place] [address] [address], [place], [address], 4 11:55:45 electrocard iogram 2022 [email or web address] M[address] [facility], [address] [place] [address] [address], [place], [address], 3 08:39:42 Medication Orders None recorded. Patient TargetsNo targets recorded. Patient InstructionsNo instructions recorded. Reason for Referral None Reported. Results Created Date Observation Date Name Description Value Unit Range Abnormal Flag Note LastModifiedBy Organization Detail LastModifiedTime 09/14/2009/15/2023 FE+TI BC+FE R iron bind.cap.(TI BC) 302 ug/dL 250-45 0 Not Available [facility] ([facility]) [address] [place], [address], 09/20/2023 03:36:31 09/14/20 23 09/15/2023 FE+TI BC+FE R UIBC 198 ug/dL 111-34 3 Not Available [facility] ([facility]) [address] [place], [address], 09/20/2023 03:36:31 09/14/20 23 09/15/2023 FE+TI BC+FE R iron 104 ug/dL 38-169 Not Available [facility] ([facility]) [address] [place], [address], 09/20/2023 03:36:31 09/14/20 23 09/15/2023 FE+TI BC+FE R iron saturation 34 % 15-55 Not Available [facility] ([facility]) [address] [place], [address], 09/20/2023 03:36:31 09/14/20 23 09/15/2023 FE+TI BC+FE R ferritin 204 NG/mL 30-400 Not Available [facility] ([facility]) [address] [place], [address], 09/20/2023 03:36:31 09/14/20 23 09/15/2023 TSH+F REE T4 TSH 3.480 uIU/m L 0.450- 4.500 Not Available [facility] ([facility]) [address] [place], [address], 09/20/2023 03:36:32 09/14/20 23 09/15/2023 TSH+F REE T4 T4,free(dire ct) 1.24 NG/dL 0.82-1 .77 Not Available [facility] ([facility]) [address] [place], [address], 09/20/2023 03:36:32 09/14/20 23 09/15/2023 CBC WITH DIFFE RENTI AL/PL ATELE T WBC 8.8 x10e3 /uL 3.4-10 .8 Not Available [facility] ([facility]) [address] [place], [address], 09/20/2023 03:36:33 09/14/20 23 09/15/2023 CBC WITH DIFFE RENTI AL/PL ATELE T RBC 5.26 x10e6 /uL 4.14-5 .80 Not Available [facility] ([facility]) [address] [place], [address], 09/20/2023 03:36:33 09/14/20 23 09/15/2023 CBC WITH DIFFE RENTI AL/PL ATELE T hemoglobin 15.4 g/dL 13.0-1 7.7 Not Available [facility] ([facility]) [address] [place], [address], 09/20/2023 03:36:33 09/14/20 23 09/15/2023 CBC WITH DIFFE RENTI AL/PL ATELE T hematocrit 46.1 % 37.5-5 1.0 Not Available [facility] ([facility]) [address] [facility] [place], [address], 09/20/2023 03:36:33 09/14/20 23 09/15/2023 CBC WITH DIFFE RENTI AL/PL ATELE T MCV 88 fL 79-97 Not Available [facility] ([facility]) [address] [facility] [place], [address], 09/20/2023 03:36:33 09/14/20 23 09/15/2023 CBC WITH DIFFE RENTI AL/PL ATELE T MCH 29.3 pg 26.6-3 3.0 Not Available [facility] ([facility]) [address] [facility] [place], [address], 09/20/2023 03:36:33 09/14/20 23 09/15/2023 CBC WITH DIFFE RENTI AL/PL ATELE T MCHC 33.4 g/dL 31.5-3 5.7 Not Available [facility] ([facility]) [address] [facility] [place], [address], 09/20/2023 03:36:33 09/14/20 23 09/15/2023 CBC WITH DIFFE RENTI AL/PL ATELE T RDW 14.1 % 11.6-1 5.4 Not Available [facility] ([facility]) [address] [facility] [place], [address], 09/20/2023 03:36:33 09/14/20 23 09/15/2023 CBC WITH DIFFE RENTI AL/PL ATELE T platelets 232 x10e3 /uL 150-45 0 Not Available [facility] ([facility]) [address] [facility] [place], [address], 09/20/2023 03:36:33 09/14/20 23 09/15/2023 CBC WITH DIFFE RENTI AL/PL ATELE T neutrophils 71 % not estab. Not Available [facility] ([facility]) [address] [facility] [place], [address], 09/20/2023 03:36:33 09/14/20 23 09/15/2023 CBC WITH DIFFE RENTI AL/PL ATELE T lymphs 16 % not estab. Not Available [facility] ([facility]) [address] [facility] [place], [address], 09/20/2023 03:36:33 09/14/20 23 09/15/2023 CBC WITH DIFFE RENTI AL/PL ATELE T monocytes 8 % not estab. Not Available [facility] ([facility]) [address] [place], [address], 09/20/2023 03:36:33 09/14/20 23 09/15/2023 CBC WITH DIFFE RENTI AL/PL ATELE T eos 3 % not estab. Not Available [facility] ([facility]) [address] [facility] [place], [address], 09/20/2023 03:36:33 09/14/20 23 09/15/2023 CBC WITH DIFFE RENTI AL/PL ATELE T basos 1 % not estab. Not Available [facility] ([facility]) [address] [facility] [place], [address], 09/20/2023 03:36:33 09/14/20 23 09/15/2023 CBC WITH DIFFE RENTI AL/PL ATELE T immature cells SALES STORE CHECKER Not Available [facility] ([facility]) [address] [place], [address], 09/20/2023 03:36:33 09/14/20 23 09/15/2023 CBC WITH DIFFE RENTI AL/PL ATELE T neutrophils (absolute) 6.3 x10e3 /uL 1.4-7. 0 Not Available [facility] ([facility]) [address] [facility] [place], [address], 09/20/2023 03:36:33 09/14/20 23 09/15/2023 CBC WITH DIFFE RENTI AL/PL ATELE T lymphs (absolute) 1.4 x10e3 /uL 0.7-3. 1 Not Available [facility] ([facility]) [address] [place], [address], 09/20/2023 03:36:33 09/14/20 23 09/15/2023 CBC WITH DIFFE RENTI AL/PL ATELE T monocytes(ab solute) 0.7 x10e3 /uL 0.1-0. 9 Not Available [facility] ([facility]) [address] [facility] [place], [address], 09/20/2023 03:36:33 09/14/20 23 09/15/2023 CBC WITH DIFFE RENTI AL/PL ATELE T eos (absolute) 0.2 x10e3 /uL 0.0-0. 4 Not Available [facility] ([facility]) [address] [facility] [place], [address], 09/20/2023 03:36:33 09/14/20 23 09/15/2023 CBC WITH DIFFE RENTI AL/PL ATELE T baso (absolute) 0.1 x10e3 /uL 0.0-0. 2 Not Available [facility] ([facility]) [address] [place], [address], 09/20/2023 03:36:33 09/14/20 23 09/15/2023 CBC WITH DIFFE RENTI AL/PL ATELE T immature granulocytes 1 % not estab. Not Available [facility] ([facility]) [address] [place], [address], 09/20/2023 03:36:33 09/14/20 23 09/15/2023 CBC WITH DIFFE RENTI AL/PL ATELE T immature grans (abs) 0.1 x10e3 /uL 0.0-0. 1 Not Available [facility] ([facility]) [address] [facility] [place], [address], 09/20/2023 03:36:33 09/14/20 23 09/15/2023 CBC WITH DIFFE RENTI AL/PL ATELE T NRBC SALES STORE CHECKER Not Available [facility] ([facility]) [address] [facility] [place], [address], 09/20/2023 03:36:33 09/14/20 23 09/15/2023 CBC WITH DIFFE RENTI AL/PL ATELE T hematology comments: SALES STORE CHECKER Not Available [facility] ([facility]) [address] [facility] [place], [address], 09/20/2023 03:36:33 09/14/20 23 09/15/2023 COMP. METAB OLIC PANEL (14) glucose 88 mg/dL 70-99 Not Available [facility] ([facility]) [address] [facility] [place], [address], 09/20/2023 03:36:34 09/14/20 23 09/15/2023 COMP. METAB OLIC PANEL (14) BUN 18 mg/dL 8-27 Not Available [facility] ([facility]) [address] [facility] [place], [address], 09/20/2023 03:36:34 09/14/20 23 09/15/2023 COMP. METAB OLIC PANEL (14) creatinine 1.17 mg/dL 0.76-1 .27 Not Available [facility] ([facility]) [address] [facility] [place], [address], 09/20/2023 03:36:34 09/14/20 23 09/15/2023 COMP. METAB OLIC PANEL (14) eGFR 70 mL/mi n/1.7 3 >59 Not Available [facility] ([facility]) [address] [facility], [place], [address], 09/20/2023 03:36:34 09/14/20 23 09/15/2023 COMP. METAB OLIC PANEL (14) BUN/creatini ne ratio 15 10-24 Not Available [facility] ([facility]) [address] [facility], [place], [address], 09/20/2023 03:36:34 09/14/20 23 09/15/2023 COMP. METAB OLIC PANEL (14) sodium 142 mmol/ L 134-14 4 Not Available [facility] ([facility]) [address] [facility] [place], [address], 09/20/2023 03:36:34 09/14/20 23 09/15/2023 COMP. METAB OLIC PANEL (14) potassium 3.9 mmol/ L 3.5-5. 2 Not Available [facility] ([facility]) [address] [facility] [place], [address], 09/20/2023 03:36:34 09/14/20 23 09/15/2023 COMP. METAB OLIC PANEL (14) chloride 101 mmol/ L 96-106 Not Available [facility] ([facility]) [address] [facility] [place], [address], 09/20/2023 03:36:34 09/14/20 23 09/15/2023 COMP. METAB OLIC PANEL (14) carbon dioxide, total 25 mmol/ L 20-29 Not Available [facility] ([facility]) [address] [facility] [place], [address], 09/20/2023 03:36:34 09/14/20 23 09/15/2023 COMP. METAB OLIC PANEL (14) calcium 9.5 mg/dL 8.6-10 .2 Not Available [facility] ([facility]) [address] [facility] [place], [address], 09/20/2023 03:36:34 09/14/20 23 09/15/2023 COMP. METAB OLIC PANEL (14) protein, total 6.9 g/dL 6.0-8. 5 Not Available [facility] ([facility]) [address] [place], [address], 09/20/2023 03:36:34 09/14/20 23 09/15/2023 COMP. METAB OLIC PANEL (14) albumin 4.3 g/dL 3.9-4. 9 Not Available [facility] ([facility]) [address], [address], 09/20/2023 03:36:34 09/14/20 23 09/15/2023 COMP. METAB OLIC PANEL (14) globulin, total 2.6 g/dL 1.5-4. 5 Not Available [facility] ([facility]) [address], [address], 09/20/2023 03:36:34 09/14/20 23 09/15/2023 COMP. METAB OLIC PANEL (14) A/G ratio 1.7 1.2-2. 2 Not Available [facility] ([facility]) [address] [facility] [place], [address], 09/20/2023 03:36:34 09/14/20 23 09/15/2023 COMP. METAB OLIC PANEL (14) bilirubin, total 0.7 mg/dL 0.0-1. 2 Not Available [facility] ([facility]) [address] [facility] [place], [address], 09/20/2023 03:36:34 09/14/20 23 09/15/2023 COMP. METAB OLIC PANEL (14) alkaline phosphatase 127 IU/L 44-121 above high normal Not Available [facility] ([facility]) [address] [facility] [place], [address], 09/20/2023 03:36:34 09/14/20 23 09/15/2023 COMP. METAB OLIC PANEL (14) AST (SGOT) 22 IU/L 0-40 Not Available [facility] ([facility]) [address] [facility] [place], [address], 09/20/2023 03:36:34 09/14/20 23 09/15/2023 COMP. METAB OLIC PANEL (14) ALT (SGPT) 27 IU/L 0-44 Not Available [facility] ([facility]) [address] [place], [address], 09/20/2023 03:36:34 09/14/20 23 09/15/2023 LIPID PANEL cholesterol, total 262 mg/dL 100-19 9 above high normal Not Available [facility] ([facility]) [address] [place], [address], 09/20/2023 03:36:35 09/14/20 23 09/15/2023 LIPID PANEL triglyceride s 200 mg/dL 0-149 above high normal Not Available [facility] ([facility]) [address] [place], [address], 09/20/2023 03:36:35 09/14/20 23 09/15/2023 LIPID PANEL HDL cholesterol 48 mg/dL >39 Not Available [facility] ([facility]) [address] [place], [address], 09/20/2023 03:36:35 09/14/20 23 09/15/2023 LIPID PANEL VLDL cholesterol faina 37 mg/dL 5-40 Not Available [facility] ([facility]) [address] [place], [address], 09/20/2023 03:36:35 09/14/20 23 09/15/2023 LIPID PANEL LDL chol calc ([facility]) 177 mg/dL 0-99 above high normal Not Available [facility] ([facility]) [address] [place], [address], 09/20/2023 03:36:35 09/14/20 23 09/15/2023 LIPID PANEL comment: SALES STORE CHECKER Not Available [facility] ([facility]) [address] [facility] [place], [address], 09/20/2023 03:36:35 09/14/20 23 09/19/2023 VITAM IN E vitamin E(alpha tocopherol) 14.8 mg/L 9.0-29 .0 Not Available [facility] ([facility]) [address] [facility] [place], [address], 09/20/2023 03:36:36 09/14/20 23 09/19/2023 VITAM IN [...] in E defic ient. Not Available [facility] ([facility]) [address] [facility] [place], [address], 09/20/2023 03:36:36 09/14/20 23 09/15/2023 HEMOG LOBIN A1C hemoglobin A1C 5.8 % 4.8-5. 6 above high normal Predi abete s: 5.7 - 6.4 Diabe maxi: >6.4 Glyce reynold contr ol for adult s with diabe maxi: <7.0 Not Available [facility] ([facility]) [address] [place], [address], 09/20/2023 03:36:37 09/14/20 23 09/15/2023 FOLAT E (FOLI C ACID) , SERUM folate (folic acid), serum 5.9 NG/mL >3.0 A serum folat e jason ntrat ion of less than 3.1 ng/mL is consi dered to repre sent clini faina defic iency . Not Available [facility] ([facility]) [address] [facility] [place], [address], 09/20/2023 03:36:37 09/14/20 23 09/19/2023 VITAM IN [...] Drug Admin istra tion. Not Available [facility] ([facility]) [address] [facility] [place], [address], 09/20/2023 03:36:38 09/14/20 23 09/15/2023 VITAM IN [...] Antonio phipps [place]: The Natio nal [facility] Press . 2. João genao MF, Binmarcos ey [place], Jeana off-F errar i CARCAMO, et al. Evalu ation , treat ment, and preve ntion of vitam in D defic iency : an Endoc rine Socie ty clini faina pract ice guide line. JCEM. 2010; 96(7) :1911 -30. Not Available [facility] ([facility]) [address] [facility] [place], [address], 09/20/2023 03:36:39 09/14/2009/18/2023 VITAM IN B1 (THIA MINE) , BLOOD vit. B1, whole blood 145.6 nmol/ L 66.5-2 00.0 Not Available [facility] ([facility]) [address] [facility] [place], [address], 09/20/2023 03:36:41 09/14/2009/19/2023 METHY LMALO YUNI ACID, SERUM methylmaloni c acid, serum 356 nmol/ L 0-378 Not Available [facility] ([facility]) [address] [facility] [place], [address], 09/20/2023 03:36:41 09/14/20 23 09/15/2023 PTH, INTAC T PTH, intact 39 pg/mL 15-65 Not Available [facility] ([facility]) [address] [facility] [place], [address], 09/20/2023 03:36:42 09/29/2009/30/[address] (H PYLOR I AB QUAL) abdiaziz test 20 min NEGATI VE negati ve Not Available [facility] ([facility]) [address] [facility], [place], [address], 09/30/2023 13:07:03 09/29/20 23 09/30/[address] (H PYLOR I AB QUAL) abdiaziz test 1HR NEGATI VE negati ve Not Available [facility] ([facility]) [address] [facility], [place], [address], 09/30/2023 13:07:03 09/29/20 23 09/30/[address] (H PYLOR I AB QUAL) abdiaziz test 3 HR NEGATI VE negati ve Not Available [facility] ([facility]) [address] [facility], [place], [address], 09/30/2023 13:07:03 09/29/20 23 09/30/[address] (H PYLOR I AB QUAL) abdiaziz test 24 HR NEGATI VE negati ve Not Available [facility] ([facility]) [address] [facility], [place], [address], 09/30/2023 13:07:03 09/29/2009/30/[address] (H PYLOR I AB QUAL) abdiaziz test kit lot# [id number] Not Available [facility] ([facility]) [address] [facility], [place], [address], 09/30/2023 13:07:03 09/29/2009/30/[address] (H PYLOR I AB QUAL) abdiaziz test kit exp date 2023 Not Available [facility] ([facility]) [address] [facility], [place], [address], 09/30/2023 13:07:03 08/23/20 elect rocar diogr am No observ ation record ed. KENNETH Galeas [address], [place], [address], 08/23/2023 08:36:04 08/23/2008/23/2023 elect rocar diogr am No observ ation record ed. Not Available 2022 10:55:07 09/05/20 elect rocar diogr am No observ ation record ed. [email or web address] Not Available 09/05 09:23:34 10/16/19 24 10/16/2023 elect rocar diogr am No observ ation record ed. KENNETH Galeas [address], [place], [address], 10/16/2023 08:22:48 10/16/1910/16/2023 elect cassandracourtney dorsey am No observ ation record ed. KENNETH Galeas [facility] [address] [place] [address] [address], [place], [address], 10/16/2023 08:49:34 Result Notes None recorded. Problems Name Problem SNOMED Code Status Onset Date Resolution Date Notes Provider Name and Address Organization Details Recorded Time Dyspnea on exertion 09192205 Active 2021 Dru Brown MD [facility],[address], [place], [address] , [place] - [facility] & [place] 2 08:31:25 Diastolic dysfunctio n 0269134 Active 2021 Dru Brown MD [facility] [address] [place] [address], [address] , [place] - [facility] & [place] 2 08:31:41 Coronary arterioscl erosis 62708138 Active 2021 Dru Brown MD [facility] [address],[address], [place], [address] , [place] - [facility] & [place] 2 08:31:46 Essential hypertensi on 50062717 Active 2021 Dru Brown MD [facility],[address], [place], [address] , [place] - [facility] & [place] 2 08:31:51 Hyperlipid emia 70913483 Active 2021 Dru Brown MD [facility],[address], [place], [address] , [place] - [facility] & [place] 2 08:31:55 Disorder of function of stomach 810456640 Active 2022 Ketan Leigh, DNP, HEAT AND [employer] INSULATOR HELPER, SALES STORE CHECKER-C [address], [place], [address] , [place] - [place] - [place] & [place] 3 08:55:09 Morbid obesity 183522340 Active 2022 Ketan Leigh DNP, HEAT AND [employer] INSULATOR HELPER, SALES STORE CHECKER-C [address], [place], [address] , [place] - [place] & [place] 3 08:55:18 Unintentio nal weight gain 8927390087759 04 Active 2022 Ketan Leigh DNP, ROYAL, SALES STORE CHECKER-C [address], [place], [address] , [place] - [place] & [place] 3 08:55:24 Low back pain [id number] Active 2022 Ketan Leigh DNP, APRN, [employer] [address] , [place], [address] , [place] [facility] 3 12:53:53 Former smokeless tobacco user [id number] 05 Active 2022 Ketan Leigh DNP, APRN, [employer] [address] , [place], [address] , [place] [facility] 3 12:54:20 Problem Notes None recorded. Procedures Surgical History Date Name Laterality Status Provider Name and Address Organization Details Recorded Time 09/29 ESOPHAGOGASTRODUODENOSCOPY (SURG) completed Tony babin [place] [facility] 3 11:27:34 09/17 Cardiac Catheterization completed Leidy Aguilar [place] [facility] 3 12:46:34 07/23 Cardiac Catheterization completed Leidy Aguilar [place] [facility] [place] 3 12:48:24 extraction of wisdom tooth completed Ketan Leigh DNP, APRN, SALES STORE CHECKER-C [address], [place], [address] , [place] - [facility] - [place] & [place] 3 10:21:44 Cholecystectomy completed Ketan Leigh, CHRISTIANO, HEAT AND FROST INSULATOR HELPER, SALES STORE CHECKER-C [address], [place], [address] , [facility] - [facility] & [place] 3 10:21:36 total knee replacement completed Peter Leigh DNP, HEAT AND FROST INSULATOR HELPER, SALES STORE CHECKER-C [address] , [place], [address] , [facility] & [place] 3 10:22:07 Imaging Results Imaging Date Name Status LastModified by Organization Details LastModified Time 08/23/2023 electrocardiogram completed [address], [place], [address], 08/23/2023 08:36:04 08/23/2023 electrocardiogram completed Informa tion not available 08/23/2023 10:55:07 09/05/2023 electrocardiogram completed [email or web address] Informa tion not available 09/05/2023 09:23:34 10/16/2023 electrocardiogram completed [address], [place], [address], 10/16/2023 08:22:48 10/16/2023 electrocardiogram completed [address]ía, [place], [address], 10/16/2023 08:49:34 Procedure Notes None recorded. Medical [...] Updated DateTime 3 170.18 cm 42.3 kg/m2 630234. 66 g 97 % 97 % 64 /min 128 mm[Hg] 86 mm[Hg] Deanna Moyer [facility] - [place] & [place] 3 08:33:00 Date Recorded Body height Body mass index (BMI) Body weight Body temperature Heart rate Systolic blood pressure Diastolic blood pressure Provider Name and Address Organization Details Last Updated DateTime 3 170.18 cm 42.7 kg/m2 222752. 92 g 98 [degF] 64 /min 141 mm[Hg] 83 mm[Hg] Josiane Conde MA [facility] & [place] 3 07:59:51 Date Recorded Body height Body mass index (BMI) Body weight Oxygen saturation Oxygen saturation in Arterial blood by Pulse oximetry Heart rate Systolic blood pressure Diastolic blood pressure Provider Name and Address Organization Details Last Updated DateTime 4 170.18 cm 43.9 kg/m2 341841. 3 g 93 % 93 % 74 /min 142 mm[Hg] 80 mm[Hg] Deanna KENNEY [facility] & [place] 4 09:04:58 Social History Question Answer Notes LastModified by [employer] Details LastModified Time Tobacco Smoking Status Never Smoker Deanna godwin, ANNE MARIE [facility] & [place] 08/23/2022 14:33:53 Do You Have An Advance Directive? No Information not available 10/16/2023 Are You Blind Or Do You Have Difficulty Seeing? No Information not available 10/16/2023 What Was The Date Of Your Most Recent Tobacco Screening? 02/20/2023 Information not available 08/23/2023 Are You Passively Exposed To Smoke? No [email or web address] Information not available 02/21/2023 Sex: Unknown Functional Status Question Answer Note LastModified by [employer] Details LastModified Time Do you use any illicit or recreational drugs? Yes [email or web address] Information not available 10/12/2023 What is your level of alcohol consumption? None Information not available 08/23/2023 Do you or have you ever used smokeless tobacco? Former smokeless tobacco user [email or web address] Information not available 02/21/2023 What is your exercise level? Occasional Information not available 08/23/2023 Mental Status Question Answer Note LastModified by Organization D etails LastModified Time Do you feel stressed (tense, restless, nervous, or anxious, or unable to sleep at night)? [id number] Information not available 10/16/2023 Family History Relationship Description Onset Age of this Age Resolved Age Notes LastModified by Organization Details LastModified Time Mother Hypertensive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
--- NOTE | 2025-02-20 11:00 | US_ITS ---
FINAL REPORT TECHNIQUE: Ultrasound images of the kidneys and bladder were obtained. CLINICAL HISTORY: G47.33 - Obstructive sleep apnea (adult) (pediatric) htn COMPARISON: None FINDINGS: The right kidney measures 11 cm in length. It is normal in echogenicity. There is no hydronephrosis. The left kidney measures 10.7 cm in length. It is normal in echogenicity. There is no hydronephrosis. There is a hypoechoic 1.8 cm in diameter cyst present in the left mid kidney. The urinary bladder is unremarkable. IMPRESSION: No hydronephrosis. 1.8 cm cyst present in the left mid kidney. Reviewed, Interpreted and Dictated by Robert Herrera MD Transcribed by Dottie Mendoza Authenticated and [facility]
[2025-02-20 11:02] VITALS: BMI 41.0
[2025-02-20] MEDS: IVABRADINE HCL 7.5MG TABLET PO (11:07)
[2025-02-20] MEDS: METOPROLOL TARTRATE 50MG TABLET PO (11:08)
[2025-02-20 11:16] VITALS: BP 152/83; PULSE 72; RESP 20; O2SAT 98
[2025-02-20 12:30] VITALS: BP 142/81; PULSE 73; RESP 20; O2SAT 96
[2025-02-20 12:40] VITALS: BP 139/90; PULSE 74; RESP 18; O2SAT 74
[2025-02-20] MEDS: METOPROLOL TARTRATE 5MG/5ML VIAL 5 MG IV (12:45)
[2025-02-20 12:50] VITALS: BP 122/81; PULSE 69; RESP 20; O2SAT 98
--- NOTE | 2025-02-20 13:00 | CT_ITS ---
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 A noncontrast coronary calcium scan was performed. A CT attenuation threshold of 130 Hounsfield units (HU) was used for the detection of calcium in contiguous voxels of 1 sq mm in area to be counted as individual lesions. Bolus tracking in the ascending aorta with a threshold of 180 HU was performed. Immediately afterwards, ECG synchronized cardiac CT was then performed from the cardiac base to apex using retrospective gating with ECG tube current modulation. A total of 85 mL of Isovue 370 mg/mL contrast medium was administered at 5 mL/sec followed by a saline flush using a biphasic injection protocol. A tube voltage of 120 KVp was used. The patient received the following medications prior to the cardiac CT. 75 mg of oral metoprolol 2 mg of intravenous metoprolol 15 mg of oral ivabradine 0.4 mg of sublingual nitroglycerin The average heart rate at the time of acquisition was 77 bpm and regular. Image Reconstruction Transaxial images were reconstructed at 0.67 mm slide thickness. Data was reviewed interactively on an advanced workstation capable of 2 and 3-dimensional displays in all conventional reconstruction formats, including multiplanar reformations, maximum intensity projections, curved multiplanar reformations, and volume rendered reconstructions. When applicable, selected routine images describing the relevant coronary anatomy and pathology were saved and sent to PACS. Complications None Technical Quality Overall image quality was suboptimal (non-diagnostic quality) due to significant motion and elevated HR. Coronary artery opacification was inadequate. Total DLP (Dose-Length Product) is 1216.1 mGy-cm. The reported value represents the total of one or more individual components during the CT acquisition of this date and at this time, and as such, the same value may appear in more than one CT report depending on the interpreting/reporting physicians. COMPARISON None FINDINGS CT Coronary Calcium Scoring LMA (Left Main Artery) = 0 LAD (Left Anterior Descending) = 109 LCX (Left Coronary Circumflex) = 5 RCA (Right Coronary Artery) = 209 Total Calcium Score = 323 using the AJ-130 method. The observed calcium score of 323 is at 78th percentile for subjects of the same age, sex, and race/ethnicity. The interpretation of the calcium heart score is based on the following continuum*: 0 = no calcified plaque detected (risk of coronary artery disease is very low ??? less than 5%) 1-10 = calcium detected in extremely minimal levels (risk of coronary diseases is still low ??? less than 10%) 11-100 = mild levels of plaque detected with certainty (mild or minimal narrowing of heart arteries is likely) 101-400 = definite,at least moderate levels of plaque detected (relatively high risk of a heart attack within 3-5 years) >401-999 = extensive levels of plaque detected (high risk of heart attack, high levels of vascular disease are present, high likelihood of at least one significant coronary narrowing) *The calcium heart score quantifies the burden of coronary calcification/plaque in the coronary arteries. The calcium heart score is not able to evaluate the presence or burden of non-calcified (i.e. soft) plaque. There is no identifiable calcification in the aortic valve, mitral annulus or mitral valve, pericardium, or myocardium. Coronary CT Angiography The coronary arterial system is right dominant. Quantitative Stenosis Grading: Left Main (LM): The left main originates normally from the left sinus of Valsalva. The LM bifurcates into the left anterior descending artery and left circumflex artery. The LM is patent with no evidence of atherosclerosis. Left Anterior Descending (LAD) and Diagonal Branches: The LAD gives off 3 diagonal branch(es). The LAD is not very well-visualized, grossly there is mixed calcified/noncalcified plaque in the proximal and mid LAD segments, with significant stenosis of indeterminate severity. There is no evidence of LAD-myocardial bridge. Left Circumflex (LCX) and Obtuse Marginals (OM): The LCX gives off 1 Obtuse Marginal (OM) branch(es). The LCX is not very well-visualized, grossly there is mixed/noncalcified plaque in the proximal LCX, with 25-49% luminal stenosis. Right Coronary Artery (RCA): The RCA originates normally from the right sinus of Valsalva. The RCA gives off a posterior descending artery (PDA) and posterolateral (PL) branches. The RCA is not well visualized due to significant motion. Non-Coronary Cardiac Findings: Analysis of the left ventricular (LV) structure and function was performed after 3-D reconstruction of the LV from axial images, with user-corrected automatic contouring for assessment of LV volumes and user-defined reconstruction from oblique planes for measurement of 3-D cardiac structure and function. -The left ventricle systolic function is normal. -There is no left atrial appendage filling defect. Two right pulmonary veins and two left pulmonary veins drain normally into the left atrium. -No pericardial thickening or calcification. -Central and branch pulmonary arteries in the [id number]-[id number]-guvo are unremarkable. -Thoracic aorta within the visualized thoracic aortic-branches in the [id number] is unremarkable. Extracardiac Structures No significant extra-cardiac findings. Note, however, that this study is focused on the cardiac findings. IMPRESSION -Technically difficult study. Suboptimal image quality, non diagnostic quality due to significant motion, blurring artifact, and inadequate IV contrast opacification. -Presence of coronary calcification with an Agatston score = 323 using the AJ-130 method. -The observed calcium score of 323 is at 78th percentile for subjects of the same age, sex, and race/ethnicity. -Study of non-diagnostic quality, but grossly there is multivessel atherosclerotic coronary disease, with likely evidence of significant flow-limiting atherosclerosis of the coronary arteries. Evaluation with alternative modality is suggested. -CAD-RADS is indeterminate. Management recommendations per ACC/AHA guidelines*, as clinically appropriate. *Recommendations: CAD RADS 0: Reassurance. Consider non-atherosclerotic causes of chest pain. CAD RADS 1: Consider non-atherosclerotic causes of chest pain. Consider preventive therapy and risk factor modification. CAD RADS 2: Consider non-atherosclerotic causes of chest pain. Consider preventive therapy and risk factor modification, particularly for patients with nonobstructive plaque in multiple segments. CAD RADS 3: Consider further functional testing. Consider symptom-guided anti-ischemic and preventive pharmacotherapy as well as risk factor modification per published guideline statements. CAD RADS 4A: Consider further functional testing or invasive coronary angiography with revascularization per published guideline statements. Consider symptom-guided anti-ischemic and preventive pharmacotherapy as well as risk factor modification per published guideline statements. CAD RADS 4B: Invasive coronary angiography recommended with revascularization per published guideline statements. Consider symptom-guided anti-ischemic and preventive pharmacotherapy as well as risk factor modification per published guideline statements. CAD RADS 5: Consider invasive angiography and/or viability assessment with revascularization per published guideline statements. Consider symptom-guided anti-ischemic and preventive pharmacotherapy as well as risk factor modification per published guideline statements. CRITICAL RESULT None COMMUNICATION Per this written report The coronary and cardiac findings of this CCTA were reviewed, reported, and signed by Fredrick Gilbert MD ([employer]) Conclusion Electronically signed by : Belgica Gilbert MD 02/24/2025 13:07:49
[2025-02-20 13:10] VITALS: BP 141/80; PULSE 68; RESP 20; O2SAT 98
[2025-02-20] MEDS: 0.9 % SODIUM CHLORIDE 50 ML VIAL IV ×2 (13:20→13:21)
[2025-02-20] MEDS: SODIUM CHLORIDE 0.9% 10ML SYR (RAD ONLY) 10 ML IV (13:20)
[2025-02-20] MEDS: IOPAMIDOL-370 (76%);100ML BOTTLE 100 ML IV (13:21)
[2025-02-20] MEDS: IOPAMIDOL-370 (76%);100ML BOTTLE 70 ML IV (13:21)
== END 2025-02-20 13:15 | disposition home or self-care (01) ==
PROVIDERS: PCP Family Medicine; Visit Provider Physician Assistant
DX: I07.1 Rheumatic tricuspid insufficiency (principal); N28.1 Cyst of kidney, acquired; I25.10 Atherosclerotic heart disease of native coronary artery without angina pectoris; G47.33 Obstructive sleep apnea (adult) (pediatric); I10 Essential (primary) hypertension; E66.9 Obesity, unspecified
CPT/HCPCS: 75574; 76770; 93306; 93976; Q9967

== ENCOUNTER 2025-02-21 14:55 | Outpatient (CLI) | payer MEDICARE, MEDICAID, SELFPAY ==
[2025-02-21 19:09] LABS: Chloride 107 mmol/L (98-107); Sodium 138 mmol/L (136-145)
[2025-02-21 19:10] LABS: Potassium 3.5 mmoL/L (3.5-5.1)
[2025-02-21 19:12] LABS: Alanine Aminotransferase 38 U/L (12-78); Albumin/Globulin Ratio 1.7 (1.1-1.8); Alkaline Phosphatase 115 U/L (38-126); Anion Gap 7.5 mEq/L (5-15); Aspartate Amino Transferase 36 U/L (17-59); Bilirubin,Total 0.6 mg/dl (0.2-1.3); Blood Urea Nitrogen 17 mg/dl (9-20); Carbon Dioxide 27 mmol/L (22.0-30.0); Cholesterol 151 mg/dl (140-200); Estimated Glomerular Filt Rate 61 ml/min (>60); GFR (African American) 74 ML/MIN (>60); Globulin 2.4 g/dL (1.3-3.2); Total Protein,Serum 6.4 g/dl (6.3-8.2); Triglycerides 173 mg/dl (30-150); VLDL Cholesterol 35 mg/dL (0-40)
[2025-02-21 19:13] LABS: Calcium 9.3 mg/dl (8.4-10.2); Chol/HDL Ratio 4.6 (1-3.5); Glucose 104 mg/dl (74-100); HDL Cholesterol 33 mg/dl (40-60)
[2025-02-21 19:26] LABS: Direct LDL Cholesterol 80.46 mg/dL (100-129)
[2025-02-21 19:44] LABS: Thyroid Stimulating Hormone 1.58 uIU/mL (0.465-4.68)
--- OUTSIDE RECORDS SUMMARY | 2025-02-24 14:58 | XMS_ITS | Data Portability ---
Author Organization [place] - 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 LAST HEART CATH: 09/17/2020 [facility], BILATERAL RENAL ARTERIOGRAPHY. LVEDP 12. MILD DIFFUSE CORONARY ARTERY DISEASE. DIFFUSE CORONARY CALCIFICATION. NO STENTS PLACED. PAST [facility]: 07/23/2013. - Plan: Continue current plan of care. EKG at follow-up. Follow-up in 6 to 7 months. - -Continue other current medications. -Continue aggressive risk factor modification. -Recommend LDL less than 70. -Encouraged regular exercise and activity. - This note was dictated using hereO software. If something is unclear, or does not make sense, please do not hesitate to contact our office at [phone] for clarification. [email or web address] Not available 08/23/2023 09:02:03 [...] ISCHEMIC EVAL: 09/25/2019. LAST HEART CATH: 09/17/2020 [facility], BILATERAL RENAL ARTERIOGRAPHY. LVEDP 12. MILD DIFFUSE CORONARY ARTERY DISEASE. DIFFUSE CORONARY CALCIFICATION. NO STENTS PLACED. PAST [facility]: 07/23/2013. Leidy Lamas CMA, am scribing for, and in the presence of, Dru Brown MD. Dru Lamas M.D. performed the services as described in this documentation, as scribed by Leidy Aguilar CMA in my presence, and it is both accurate and complete. This note was dictated using hereO software. If something is unclear, or does not make sense, please do not hesitate to contact our office at [phone] for clarification. [email or web address] Not available 10/16/2023 08:22:25 [...] ISCHEMIC EVAL: 09/25/2019. LAST HEART CATH: 09/17/2020 [facility], BILATERAL RENAL ARTERIOGRAPHY. LVEDP 12. MILD DIFFUSE CORONARY ARTERY DISEASE. DIFFUSE CORONARY CALCIFICATION. NO STENTS PLACED. PAST [facility]: 07/23/2013. - Plan: Continue current plan of care. EKG at follow-up. Follow-up in Cardiology Clinic in 6-8 weeks for re-evaluation - -Continue other current medications. -Continue aggressive risk factor modification. -Recommend LDL less than 70. -Encouraged regular exercise and activity. - This note was dictated using hereO software. If something is unclear, or does not make sense, please do not hesitate to contact our office at [phone] for clarification. [email or web address] Not available 03/22/2024 10:23:10 Plan of Treatment Reminders Order Date Submit Date Provider Last Modified By Organization Details Last Modified Time Details Appointments None recorded. Lab CBC w/ auto diff 2022 023 KENNETH [facility], [address], [address], [place], [address], 3 03:36:33 CMP, serum or plasma 2022 023 KENNETH [facility], [address], [address], [place], [address], 3 03:36:34 HbA1c (hemoglobin A1c), blood 2022 023 KENNETH [facility], [address], [address], [place], [address], 3 03:36:37 iron + TIBC + ferritin, serum 2022 023 KENNETH [facility], [address], [address], [place], [address], 3 03:36:31 vitamin D, 25-hydroxy, total, serum 2022 023 KENNETH [facility], [address], [address], [place], [address], 3 03:36:39 vitamin A (retinol), serum 2022 023 KENNETH [facility], [address], [address], [place], [address], 3 03:36:38 vitamin E, serum 2022 023 KENNETH [facility], [address], [address], [place], [address], 3 03:36:36 PTH (parathyroi d hormone), intact, serum or plasma 2022 023 KENNETH [facility], [address], [address], [place], [address], 3 03:36:42 lipid panel, serum 2022 023 KENNETH [facility], [address], [address], [place], [address], 3 03:36:35 TSH + free T4, serum 2022 023 KENNETH [facility], [address], [address], [place], [address], 3 03:36:32 folate, serum 2022 023 KENNETH [facility], [address], [address], [place], [address], 3 03:36:38 methylmalon ate, QN, serum or plasma 2022 023 KENNETH [facility], [address], [address], [place], [address], 3 03:36:41 thiamine, QN, blood 2022 023 KENNETH [facility], [address], [address], [place], [address], 3 03:36:41 Referral None recorded. Procedures None recorded. Surgeries esophagogas troduodenos copy (SURG) 2022 023 KENNETH Sanchez MD, [address], [address], [place], [address], 3 11:27:34 Imaging electrocard iogram 2023 024 [email or web address] Galeas [facility], [facility] [address], [place], [address], 4 08:22:48 XR, chest, 2 view [address] (Centralized Scheduling), [address], [place], [address], 4 13:44:18 electrocard iogram, routine ECG, 12 leads min 2022 023 [email or web address] Mv [facility], [address] [place] [address] [address], [place], [address], 4 11:55:45 electrocard iogram 2022 023 [email or web address] Mv [facility], [address] [place] [address] [address], [place], [address], 3 08:39:42 Medication Orders None recorded. Patient TargetsNo targets recorded. Patient InstructionsNo instructions recorded. Reason for Referral None Reported. Results Created Date Observation Date Name Description Value Unit Range Abnormal Flag Note LastModifiedBy Organization Detail LastModifiedTime 09/14/2009/15/2023 FE+TI BC+FE R iron bind.cap.(TI BC) 302 ug/dL 250-45 0 Not Available [facility] ([facility]) [address] [place], [address], 09/20/2023 03:36:31 09/14/20 23 09/15/2023 FE+TI BC+FE R UIBC 198 ug/dL 111-34 3 Not Available [facility] ([facility]) [address] [place], [address], 09/20/2023 03:36:31 09/14/20 23 09/15/2023 FE+TI BC+FE R iron 104 ug/dL 38-169 Not Available [facility] ([facility]) [address] [place], [address], 09/20/2023 03:36:31 09/14/20 23 09/15/2023 FE+TI BC+FE R iron saturation 34 % 15-55 Not Available [facility] ([facility]) [address] [place], [address], 09/20/2023 03:36:31 09/14/20 23 09/15/2023 FE+TI BC+FE R ferritin 204 NG/mL 30-400 Not Available [facility] ([facility]) [address] [place], [address], 09/20/2023 03:36:31 09/14/20 23 09/15/2023 TSH+F REE T4 TSH 3.480 uIU/m L 0.450- 4.500 Not Available [facility] ([facility]) [address] [place], [address], 09/20/2023 03:36:32 09/14/20 23 09/15/2023 TSH+F REE T4 T4,free(dire ct) 1.24 NG/dL 0.82-1 .77 Not Available [facility] ([facility]) [address] [place], [address], 09/20/2023 03:36:32 09/14/20 23 09/15/2023 CBC WITH DIFFE RENTI AL/PL ATELE T WBC 8.8 x10e3 /uL 3.4-10 .8 Not Available [facility] ([facility]) [address] [place], [address], 09/20/2023 03:36:33 09/14/20 23 09/15/2023 CBC WITH DIFFE RENTI AL/PL ATELE T RBC 5.26 x10e6 /uL 4.14-5 .80 Not Available [facility] ([facility]) [address] [place], [address], 09/20/2023 03:36:33 09/14/20 23 09/15/2023 CBC WITH DIFFE RENTI AL/PL ATELE T hemoglobin 15.4 g/dL 13.0-1 7.7 Not Available [facility] ([facility]) [address] [place], [address], 09/20/2023 03:36:33 09/14/20 23 09/15/2023 CBC WITH DIFFE RENTI AL/PL ATELE T hematocrit 46.1 % 37.5-5 1.0 Not Available [facility] ([facility]) [address] [facility], [place], [address], 09/20/2023 03:36:33 09/14/20 23 09/15/2023 CBC WITH DIFFE RENTI AL/PL ATELE T MCV 88 fL 79-97 Not Available [facility] ([facility]) [address] [facility], [place], [address], 09/20/2023 03:36:33 09/14/20 23 09/15/2023 CBC WITH DIFFE RENTI AL/PL ATELE T MCH 29.3 pg 26.6-3 3.0 Not Available [facility] ([facility]) [address] [facility], [place], [address], 09/20/2023 03:36:33 09/14/20 23 09/15/2023 CBC WITH DIFFE RENTI AL/PL ATELE T MCHC 33.4 g/dL 31.5-3 5.7 Not Available [facility] ([facility]) [address] [facility], [place], [address], 09/20/2023 03:36:33 09/14/20 23 09/15/2023 CBC WITH DIFFE RENTI AL/PL ATELE T RDW 14.1 % 11.6-1 5.4 Not Available [facility] ([facility]) [address] [facility], [place], [address], 09/20/2023 03:36:33 09/14/20 23 09/15/2023 CBC WITH DIFFE RENTI AL/PL ATELE T platelets 232 x10e3 /uL 150-45 0 Not Available [facility] ([facility]) [address] [facility], [place], [address], 09/20/2023 03:36:33 09/14/20 23 09/15/2023 CBC WITH DIFFE RENTI AL/PL ATELE T neutrophils 71 % not estab. Not Available [facility] ([facility]) [address] [facility], [place], [address], 09/20/2023 03:36:33 09/14/20 23 09/15/2023 CBC WITH DIFFE RENTI AL/PL ATELE T lymphs 16 % not estab. Not Available [facility] ([facility]) [address] [facility], [place], [address], 09/20/2023 03:36:33 09/14/20 23 09/15/2023 CBC WITH DIFFE RENTI AL/PL ATELE T monocytes 8 % not estab. Not Available [facility] ([facility]) [address] [place], [address], 09/20/2023 03:36:33 09/14/20 23 09/15/2023 CBC WITH DIFFE RENTI AL/PL ATELE T eos 3 % not estab. Not Available [facility] ([facility]) [address] [facility], [place], [address], 09/20/2023 03:36:33 09/14/20 23 09/15/2023 CBC WITH DIFFE RENTI AL/PL ATELE T basos 1 % not estab. Not Available [facility] ([facility]) [address] [facility], [place], [address], 09/20/2023 03:36:33 09/14/20 23 09/15/2023 CBC WITH DIFFE RENTI AL/PL ATELE T immature cells RN FLOAT Not Available [facility] ([facility]) [address] [place], [address], 09/20/2023 03:36:33 09/14/20 23 09/15/2023 CBC WITH DIFFE RENTI AL/PL ATELE T neutrophils (absolute) 6.3 x10e3 /uL 1.4-7. 0 Not Available [facility] ([facility]) [address] [facility], [place], [address], 09/20/2023 03:36:33 09/14/20 23 09/15/2023 CBC WITH DIFFE RENTI AL/PL ATELE T lymphs (absolute) 1.4 x10e3 /uL 0.7-3. 1 Not Available [facility] ([facility]) [address] [place], [address], 09/20/2023 03:36:33 09/14/20 23 09/15/2023 CBC WITH DIFFE RENTI AL/PL ATELE T monocytes(ab solute) 0.7 x10e3 /uL 0.1-0. 9 Not Available [facility] ([facility]) [address] [facility], [place], [address], 09/20/2023 03:36:33 09/14/20 23 09/15/2023 CBC WITH DIFFE RENTI AL/PL ATELE T eos (absolute) 0.2 x10e3 /uL 0.0-0. 4 Not Available [facility] ([facility]) [address] [facility], [place], [address], 09/20/2023 03:36:33 09/14/20 23 09/15/2023 CBC WITH DIFFE RENTI AL/PL ATELE T baso (absolute) 0.1 x10e3 /uL 0.0-0. 2 Not Available [facility] ([facility]) [address] [place], [address], 09/20/2023 03:36:33 09/14/20 23 09/15/2023 CBC WITH DIFFE RENTI AL/PL ATELE T immature granulocytes 1 % not estab. Not Available [facility] ([facility]) [address] [place], [address], 09/20/2023 03:36:33 09/14/20 23 09/15/2023 CBC WITH DIFFE RENTI AL/PL ATELE T immature grans (abs) 0.1 x10e3 /uL 0.0-0. 1 Not Available [facility] ([facility]) [address] [facility], [place], [address], 09/20/2023 03:36:33 09/14/20 23 09/15/2023 CBC WITH DIFFE RENTI AL/PL ATELE T NRBC RN FLOAT Not Available [facility] ([facility]) [address] [facility], [place], [address], 09/20/2023 03:36:33 09/14/20 23 09/15/2023 CBC WITH DIFFE RENTI AL/PL ATELE T hematology comments: RN FLOAT Not Available [facility] ([facility]) [address] [facility], [place], [address], 09/20/2023 03:36:33 09/14/20 23 09/15/2023 COMP. METAB OLIC PANEL (14) glucose 88 mg/dL 70-99 Not Available [facility] ([facility]) [address] [facility], [place], [address], 09/20/2023 03:36:34 09/14/20 23 09/15/2023 COMP. METAB OLIC PANEL (14) BUN 18 mg/dL 8-27 Not Available [facility] ([facility]) [address] [facility], [place], [address], 09/20/2023 03:36:34 09/14/20 23 09/15/2023 COMP. METAB OLIC PANEL (14) creatinine 1.17 mg/dL 0.76-1 .27 Not Available [facility] ([facility]) [address] [facility], [place], [address], 09/20/2023 03:36:34 09/14/20 23 09/15/2023 COMP. METAB OLIC PANEL (14) eGFR 70 mL/mi n/1.7 3 >59 Not Available [facility] ([facility]) [address] [facility], [place], [address], 09/20/2023 03:36:34 09/14/20 23 09/15/2023 COMP. METAB OLIC PANEL (14) BUN/creatini ne ratio 15 10-24 Not Available [facility] ([facility]) [address] [facility], [place], [address], 09/20/2023 03:36:34 09/14/20 23 09/15/2023 COMP. METAB OLIC PANEL (14) sodium 142 mmol/ L 134-14 4 Not Available [facility] ([facility]) [address] [facility], [place], [address], 09/20/2023 03:36:34 09/14/20 23 09/15/2023 COMP. METAB OLIC PANEL (14) potassium 3.9 mmol/ L 3.5-5. 2 Not Available [facility] ([facility]) [address] [facility], [place], [address], 09/20/2023 03:36:34 09/14/20 23 09/15/2023 COMP. METAB OLIC PANEL (14) chloride 101 mmol/ L 96-106 Not Available [facility] ([facility]) [address] [facility], [place], [address], 09/20/2023 03:36:34 09/14/20 23 09/15/2023 COMP. METAB OLIC PANEL (14) carbon dioxide, total 25 mmol/ L 20-29 Not Available [facility] ([facility]) [address] [facility], [place], [address], 09/20/2023 03:36:34 09/14/20 23 09/15/2023 COMP. METAB OLIC PANEL (14) calcium 9.5 mg/dL 8.6-10 .2 Not Available [facility] ([facility]) [address] [facility], [place], [address], 09/20/2023 03:36:34 09/14/20 23 09/15/2023 COMP. METAB OLIC PANEL (14) protein, total 6.9 g/dL 6.0-8. 5 Not Available [facility] ([facility]) [address] [place], [address], 09/20/2023 03:36:34 09/14/20 23 09/15/2023 COMP. METAB OLIC PANEL (14) albumin 4.3 g/dL 3.9-4. 9 Not Available [facility] ([facility]) [address], [address], 09/20/2023 03:36:34 09/14/20 23 09/15/2023 COMP. METAB OLIC PANEL (14) globulin, total 2.6 g/dL 1.5-4. 5 Not Available [facility] ([facility]) [address], [address], 09/20/2023 03:36:34 09/14/20 23 09/15/2023 COMP. METAB OLIC PANEL (14) A/G ratio 1.7 1.2-2. 2 Not Available [facility] ([facility]) [address] [facility] [place], [address], 09/20/2023 03:36:34 09/14/20 23 09/15/2023 COMP. METAB OLIC PANEL (14) bilirubin, total 0.7 mg/dL 0.0-1. 2 Not Available [facility] ([facility]) [address] [facility] [place], [address], 09/20/2023 03:36:34 09/14/20 23 09/15/2023 COMP. METAB OLIC PANEL (14) alkaline phosphatase 127 IU/L 44-121 above high normal Not Available [facility] ([facility]) [address] [facility] [place], [address], 09/20/2023 03:36:34 09/14/20 23 09/15/2023 COMP. METAB OLIC PANEL (14) AST (SGOT) 22 IU/L 0-40 Not Available [facility] ([facility]) [address] [facility] [place], [address], 09/20/2023 03:36:34 09/14/20 23 09/15/2023 COMP. METAB OLIC PANEL (14) ALT (SGPT) 27 IU/L 0-44 Not Available [facility] ([facility]) [address] [place], [address], 09/20/2023 03:36:34 09/14/20 23 09/15/2023 LIPID PANEL cholesterol, total 262 mg/dL 100-19 9 above high normal Not Available [facility] ([facility]) [address] [place], [address], 09/20/2023 03:36:35 09/14/20 23 09/15/2023 LIPID PANEL triglyceride s 200 mg/dL 0-149 above high normal Not Available [facility] ([facility]) [address] [place], [address], 09/20/2023 03:36:35 09/14/20 23 09/15/2023 LIPID PANEL HDL cholesterol 48 mg/dL >39 Not Available [facility] ([facility]) [address] [place], [address], 09/20/2023 03:36:35 09/14/20 23 09/15/2023 LIPID PANEL VLDL cholesterol faina 37 mg/dL 5-40 Not Available [facility] ([facility]) [address] [place], [address], 09/20/2023 03:36:35 09/14/20 23 09/15/2023 LIPID PANEL LDL chol calc ([facility]) 177 mg/dL 0-99 above high normal Not Available [facility] ([facility]) [address] [place], [address], 09/20/2023 03:36:35 09/14/20 23 09/15/2023 LIPID PANEL comment: RN FLOAT Not Available [facility] ([facility]) [address] [facility] [place], [address], 09/20/2023 03:36:35 09/14/20 23 09/19/2023 VITAM IN E vitamin E(alpha tocopherol) 14.8 mg/L 9.0-29 .0 Not Available [facility] ([facility]) [address] [facility], [place], [address], 09/20/2023 03:36:36 09/14/20 23 09/19/2023 VITAM IN [...] in E defic ient. Not Available [facility] ([facility]) [address] [facility], [place], [address], 09/20/2023 03:36:36 09/14/20 23 09/15/2023 HEMOG LOBIN A1C hemoglobin A1C 5.8 % 4.8-5. 6 above high normal Predi abete s: 5.7 - 6.4 Diabe maxi: >6.4 Glyce reynold contr ol for adult s with diabe maxi: <7.0 Not Available [facility] ([facility]) [address] [place], [address], 09/20/2023 03:36:37 09/14/20 23 09/15/2023 FOLAT E (FOLI C ACID) , SERUM folate (folic acid), serum 5.9 NG/mL >3.0 A serum folat e jason ntrat ion of less than 3.1 ng/mL is consi dered to repre sent clini faina defic iency . Not Available [facility] ([facility]) [address] [facility], [place], [address], 09/20/2023 03:36:37 09/14/20 23 09/19/2023 VITAM IN [...] Drug Admin istra tion. Not Available [facility] ([facility]) [address] [facility], [place], [address], 09/20/2023 03:36:38 09/14/20 23 09/15/2023 VITAM IN [...] Antonio phipps [place]: The [facility] Press . 2. João genao MF, Binmarcos ey [place], Jeana off-F errar i CARCAMO, et al. Evalu ation , treat ment, and preve ntion of vitam in D defic iency : an Endoc rine Socie ty clini faina pract ice guide line. JCEM. 2010; 96(7) :1911 -30. Not Available [facility] ([facility]) [address] [facility], [place], [address], 09/20/2023 03:36:39 09/14/2009/18/2023 VITAM IN B1 (THIA MINE) , BLOOD vit. B1, whole blood 145.6 nmol/ L 66.5-2 00.0 Not Available [facility] ([facility]) [address] [facility], [place], [address], 09/20/2023 03:36:41 09/14/2009/19/2023 METHY LMALO YUNI ACID, SERUM methylmaloni c acid, serum 356 nmol/ L 0-378 Not Available [facility] ([facility]) [address] [facility], [place], [address], 09/20/2023 03:36:41 09/14/20 23 09/15/2023 PTH, INTAC T PTH, intact 39 pg/mL 15-65 Not Available [facility] ([facility]) [address] [facility], [place], [address], 09/20/2023 03:36:42 09/29/2009/30/[address] (H PYLOR I AB QUAL) abdiaziz test 20 min NEGATI VE negati ve Not Available [facility] [address], [facility] [facility], [place], [address], 09/30/2023 13:07:03 09/29/20 23 09/30/[address] (H PYLOR I AB QUAL) abdiaziz test 1HR NEGATI VE negati ve Not Available [facility] ([facility] [address], [facility] [facility], [place], [address], 09/30/2023 13:07:03 09/29/20 23 09/30/[address] (H PYLOR I AB QUAL) abdiaziz test 3 HR NEGATI VE negati ve Not Available [facility] [address], [facility] [facility], [place], [address], 09/30/2023 13:07:03 09/29/20 23 09/30/[address] (H PYLOR I AB QUAL) abdiaziz test 24 HR NEGATI VE negati ve Not Available [facility] [address], [facility] [facility], [place], [address], 09/30/2023 13:07:03 09/29/2009/30/[address] (H PYLOR I AB QUAL) abdiaziz test kit lot# [id number] Not Available [facility] [address], [facility] [facility], [place], [address], 09/30/2023 13:07:03 09/29/2009/30/[address] (H PYLOR I AB QUAL) abdiaziz test kit exp date 2023 Not Available [facility] [address], [facility] [facility], [place], [address], 09/30/2023 13:07:03 08/23/20 elect rocar diogr am No observ ation record ed. KENNETH Galeas [address], [place], [address], 08/23/2023 08:36:04 08/23/2008/23/2023 elect rocar diogr am No observ ation record ed. Not Available 2022 10:55:07 09/05/20 elect rocar diogr am No observ ation record ed. [email or web address] Not Available 09/05 09:23:34 10/16/19 24 10/16/2023 elect rocar diogr am No observ ation record ed. KENNETH Galeas [address], [place], [address], 10/16/2023 08:22:48 10/16/1910/16/2023 elect cassandracourtney dorsey am No observ ation record ed. KENNETH Galeas [facility] [address] [place] [address] [address], [place], [address], 10/16/2023 08:49:34 Result Notes None recorded. Problems Name Problem SNOMED Code Status Onset Date Resolution Date Notes Provider Name and Address Organization Details Recorded Time Dyspnea on exertion 19943172 Active 2021 Dru Brown MD [facility],[address], [place], [address] , [place] - [facility] & [place] 2 08:31:25 Diastolic dysfunctio n 7098183 Active 2021 Dru Brown MD [facility],SuAtooma e [address] [place] [address], [address] , [place] - [facility] & [place] 2 08:31:41 Coronary arterioscl erosis 90828479 Active 2021 Dru Brown MD [facility] [employer], [place], [address] , [place] - [facility] & [place] 2 08:31:46 Essential hypertensi on 69312644 Active 2021 Dru Brown MD [facility],[address], [place], [address] , [place] - [facility] & [place] 2 08:31:51 Hyperlipid emia 46124779 Active 2021 Dru Brown MD [facility],[address], [place], [address] , [place] - [facility] & [place] 2 08:31:55 Disorder of function of stomach 937018119 Active 2022 Ketan Leigh, DNP, FIELD SAMPLING TECHNICIAN, RN FLOAT-C [address], [place], [address] , [place] [facility] 3 08:55:09 Morbid obesity 327350432 Active 2022 Ketan Leigh DNP, FIELD SAMPLING TECHNICIAN, RN FLOAT-C [address], [place], [address] , [place] 3 08:55:18 Unintentio nal weight gain 8466823252568 04 Active 2022 Ketan Leigh DNP, ROYAL, RN FLOAT-C [address], [place], [address] , [place] 3 08:55:24 Low back pain 880758349 Active 2022 Ketan Leigh DNP, APRN, RN FLOAT-C [address] , [place], [address] , [place] 3 12:53:53 Former smokeless tobacco user [id number] 05 Active 2022 Ketan Leigh DNP, APRN, RN FLOAT-C [address] , [place], [address] , [place] [facility] 3 12:54:20 Problem Notes None recorded. Procedures Surgical History Date Name Laterality Status Provider Name and Address Organization Details Recorded Time 09/29 ESOPHAGOGASTRODUODENOSCOPY (SURG) completed Tony babin [place] 3 11:27:34 09/17 Cardiac Catheterization completed Leidy Aguilar [place] 3 12:46:34 07/23 Cardiac Catheterization completed Leidy Aguilar [place] 3 12:48:24 extraction of wisdom tooth completed Ketan Leigh DNP, APRN, RN FLOAT-C [address], [place], [address] , [place] [facility] [place] 3 10:21:44 Cholecystectomy completed Ketan Leigh, CHRISTIANO, FIELD SAMPLING TECHNICIAN, RN FLOAT-C [address], [place], [address] , [facility] & [place] 3 10:21:36 total knee replacement completed Peter Leigh DNP, FIELD SAMPLING TECHNICIAN, RN FLOAT-C [address] , [place], [address] , [facility] & [place] 3 10:22:07 Imaging Results Imaging Date Name Status LastModified by Organization Details LastModified Time 08/23/2023 electrocardiogram completed [address], [place], [address], 08/23/2023 08:36:04 08/23/2023 electrocardiogram completed Informa tion not available 08/23/2023 10:55:07 09/05/2023 electrocardiogram completed [email or web address] Informa tion not available 09/05/2023 09:23:34 10/16/2023 electrocardiogram completed [address], [place], [address], 10/16/2023 08:22:48 10/16/2023 electrocardiogram completed [address]ía, [place], [address], 10/16/2023 08:49:34 Procedure Notes None recorded. Medical [...] Updated DateTime 3 170.18 cm 42.3 kg/m2 844537. 66 g 97 % 97 % 64 /min 128 mm[Hg] 86 mm[Hg] Deanna Moyer [facility] [place] & [place] 3 08:33:00 Date Recorded Body height Body mass index (BMI) Body weight Body temperature Heart rate Systolic blood pressure Diastolic blood pressure Provider Name and Address Organization Details Last Updated DateTime 3 170.18 cm 42.7 kg/m2 863523. 92 g 98 [degF] 64 /min 141 mm[Hg] 83 mm[Hg] Josiane Conde [place] [facility] & [place] 3 07:59:51 Date Recorded Body height Body mass index (BMI) Body weight Oxygen saturation Oxygen saturation in Arterial blood by Pulse oximetry Heart rate Systolic blood pressure Diastolic blood pressure Provider Name and Address Organization Details Last Updated DateTime 4 170.18 cm 43.9 kg/m2 689312. 3 g 93 % 93 % 74 /min 142 mm[Hg] 80 mm[Hg] Deanna KENNEY [facility] & [place] 4 09:04:58 Social History Question Answer Notes LastModified by [facility] Details LastModified Time Tobacco Smoking Status Never Smoker Deanna godwin, ANNE MARIE [facility] & [place] 08/23/2022 14:33:53 Do You Have An Advance Directive? No Information not available 10/16/2023 Are You Blind Or Do You Have Difficulty Seeing? No Information not available 10/16/2023 What Was The Date Of Your Most Recent Tobacco Screening? 02/20/2023 Information not available 08/23/2023 Are You Passively Exposed To Smoke? No [email or web address] Information not available 02/21/2023 Sex: Unknown Functional Status Question Answer Note LastModified by [employer] Details LastModified Time Do you use any illicit or recreational drugs? Yes [email or web address] Information not available 10/12/2023 What is your level of alcohol consumption? None Information not available 08/23/2023 Do you or have you ever used smokeless tobacco? Former smokeless tobacco user [email or web address] Information not available 02/21/2023 What is your exercise level? Occasional Information not available 08/23/2023 Mental Status Question Answer Note LastModified by Organization D etails LastModified Time Do you feel stressed (tense, restless, nervous, or anxious, or unable to sleep at night)? [id number] Information not available 10/16/2023 Family History Relationship Description Onset Age of this Age Resolved Age Notes LastModified by Organization Details LastModified Time Mother Hypertensive disorder Not available 2021 14:33:21 Father Myocardial infarction Not available 08/23 14:33:43 Medical History Condition Response Coronary Artery Disease Y Ear or Hearing Problems Y Thyroid Problems Y Obesity Y Vision or Eye Problems Y Arthritis Y Hyperlipidemia Y Cancer Y Back Problems Y Shortness of Breath Y Reflux/GERD Y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
== END 2025-02-21 23:59 | disposition home or self-care (01) ==
LOC: LAB.DROPOF 02-24 14:56
PROVIDERS: PCP Family Medicine; Visit Provider Family Medicine
DX: I95.9 Hypotension, unspecified (principal); E87.6 Hypokalemia; E78.5 Hyperlipidemia, unspecified; E03.9 Hypothyroidism, unspecified
CPT/HCPCS: 80053; 80061; 84443

== ENCOUNTER 2025-03-25 08:47 | Day surgery (SDC) | payer MEDICARE, MEDICAID, SELFPAY ==
[2025-03-25] VITALS (12 sets, daily range): BP systolic 127–158; BP diastolic 76–96; PULSE 68–91; RESP 18; TEMP 36.7; O2SAT 92–95; BMI 41.2
--- NOTE | 2025-03-25 07:15 | IR_ITS ---
APPROVED REPORT Patient Location: Outpatient Machine Wiper: NIEVES Sood RT (R) PROCEDURES Left heart catheterization Left ventriculogram Selective coronary angiogram INDICATION Abnormal CCTA, Angina pectoris Informed consent was obtained prior to the procedure. COMPLICATIONS NONE Estimated Blood Loss: LESS THAN 10 ML TECHNIQUE One percent lidocaine used to anesthetize the right anterior aspect of the wrist. The right radial artery was accessed via the Seldinger technique. A 6 Pashto sheath was placed in the right radial artery. 2.5 mg of Verapamil, 800 mcg of nitroglycerin, 1mg Lidocaine and 5000 U Heparin were given through the arterial sheath. The JL3 catheter was also used to perform left heart catheterization, left ventriculogram and selective coronary angiogram. At the end of the procedure the sheath was removed good hemostasis was achieved using Traclet band, patient was transferred to the postop holding area in stable condition. ANGIOGRAPHIC RESULTS The left main artery Normal The left anterior descending artery Has proximal 20 and 30% stenoses with mid vessel 20 to 30% stenoses The circumflex artery Nondominant with 10% luminal regularities The right coronary artery Dominant with proximal 40% stenoses with multiple 30% stenosis and an additional mid vessel 40 to 50% eccentric stenosis The KERR ventriculogram reveals Normal 65% The left ventricular end-diastolic pressure Elevated at 25 mmHg IMPRESSION Moderate coronary artery disease involving the right coronary artery as described above Normal ejection fraction Elevated LVEDP PLAN 1. Treat elevated LVEDP which is likely contributing to angina 2. Aggressive risk factor modification 3. Maximize antianginal medications Electronically signed by : Brian Victoria MD 03/25/2025 11:39:37
[2025-03-25 09:09] LABS: Basophils # 0.1 K/mm3 (0-0.2); Basophils % 0.8 % (0.1-2.0); Eosinophils # 0.4 Kmm3 (0.0-0.4); Eosinophils % 6.8 % (0.1-12.0); Hematocrit 40.7 % (42.0-52.0); Hemoglobin 14.2 g/dL (14.1-18.0); Immature Granulocytes # 0.02 10^3uL; Immature Granulocytes % 0.3 %; Lymphocytes # 0.8 K/mm3 (0.7-4.5); Lymphocytes % 13.7 % (10-50); Mean Corpuscular HGB Conc 34.9 g/dL (31.8-35.4); Mean Corpuscular Hemoglobin 29.3 pg (27.0-31.2); Mean Corpuscular Volume 84.1 fl (80-94); Mean Platelet Volume 10.7 fl (7.4-10.4); Monocytes # 0.5 K/mm3 (0.1-1.0); Monocytes % 8.2 % (1.7-9.3); Neutrophils # 4.3 K/mm3 (1.8-7.8); Neutrophils % 70.2 % (37.0-80.0); Nucleated Red Blood Cells # 0 10^3/uL; Nucleated Red Blood Cells % 0 %; Platelet Count 214 K/mm3 (142-424); Red Blood Count 4.84 M/mm3 (4.60-6.20); Red Cell Distribution Width 13.2 % (11.5-17.5); Red Cell Distribution Width-SD 40.6 fL; White Blood Count 6.1 K/mm3 (4.8-10.8)
[2025-03-25 09:15] LABS: Chloride 111 mmol/L (98-107); Potassium 3.8 mmoL/L (3.5-5.1); Sodium 142 mmol/L (136-145)
[2025-03-25 09:18] LABS: Anion Gap 8.8 mEq/L (5-15); Blood Urea Nitrogen 18 mg/dl (9-20); Calcium 9.2 mg/dl (8.4-10.2); Carbon Dioxide 26 mmol/L (22.0-30.0); Creatinine Clearance Estimated 72 mL/min (50-200); Estimated Glomerular Filt Rate 75 ml/min (>60); GFR (African American) 91 ML/MIN (>60); Glucose 109 mg/dl (74-100)
[2025-03-25] MEDS: NITROGLYCERIN 800MCG/8ML SYR (CATH LAB) 800 MCG IA (11:06)
[2025-03-25] MEDS: HEPARIN 1,000 UNITS/500ML NS (CATH LAB) 3000 UNIT IV (11:06)
[2025-03-25] MEDS: diphenhydrAMINE 50MG/ML VIAL 50 MG IV (11:06)
[2025-03-25] MEDS: LIDOCAINE 1% 10ML MDV 10 ML IJ (11:07)
[2025-03-25] MEDS: MIDAZOLAM HCL 1MG/ML 5ML VIAL 1 MG IV (11:07)
[2025-03-25] MEDS: VERAPAMIL 2.5MG/ML 2ML VIAL 2.5 MG IV (11:07)
[2025-03-25] MEDS: HEPARIN 1,000 UNITS/ML 10ML VIAL (CATH LAB) 5000 UNIT IV (11:07)
[2025-03-25] MEDS: 0.9 % SODIUM CHLORIDE 500 ML 25 ML IV (11:07)
[2025-03-25] MEDS: FENTANYL 100MCG/2ML VIAL 50 MCG IV (11:08)
[2025-03-25] MEDS: IOPAMIDOL-370 (76%);100ML BOTTLE 60 ML IV (11:46)
== END 2025-03-25 14:04 | disposition home or self-care (01) ==
LOC: CATHLAB 08:48
PROVIDERS: PCP Family Medicine; Visit Provider Internal Medicine
PROC: 4A023N7 Measurement of Cardiac Sampling and Pressure, Left Heart, Percutaneous Approach (ICD-10-PCS; CPT 93452; principal; 2025-03-25 10:00)
DX: I25.118 Atherosclerotic heart disease of native coronary artery with other forms of angina pectoris (principal); R93.1 Abnormal findings on diagnostic imaging of heart and coronary circulation; R06.00 Dyspnea, unspecified; I10 Essential (primary) hypertension; E03.9 Hypothyroidism, unspecified; E78.5 Hyperlipidemia, unspecified; E66.9 Obesity, unspecified; Z68.41 Body mass index [BMI] 40.0-44.9, adult; Z79.82 Long term (current) use of aspirin; Z79.85 Long-term (current) use of injectable non-insulin antidiabetic drugs; Z79.899 Other long term (current) drug therapy; Z82.49 Family history of ischemic heart disease and other diseases of the circulatory system
CPT/HCPCS: 93458; 80048; 85025; 99152; C1725; C1760; C1769; J1200; J1644; J3010; J7040; Q9967

== ENCOUNTER 2025-05-12 07:49 | Outpatient (CLI) | payer MEDICARE, MEDICAID, SELFPAY ==
--- OUTSIDE RECORDS SUMMARY | 2017-03-29 10:14 | XMS_ITS | Encounter Summary ---
Author Organization [place] [address] Care Team Providers Care Nut Dehydrator Operator Name Role Phone Pee Sheridan MD Primary Care Provider [phone] Encounter Details Date Type Department Care Team (Latest Contact Info) Description 03/29/2017 10:14 AM EDT Hospital Encounter [facility] [address] [id number] Tung Hatfield MD [address] [place] [address] Effusion of left knee Social History Tobacco Use Types Packs/Day Years Used Date Smoking Tobacco: Never Smokeless Tobacco: Never Sex and Gender Information Value Date Recorded Sex Assigned at Not on file Legal Sex Male 8:35 PM EDT Gender Identity Not on file Sexual Orientation Not on file COVID-19 Exposure Response Date Recorded In the last 10 days, have yo u been in contact with someone who was confirmed or suspected to have Coronavirus/COVID-19? No / Unsure 03/10/2023 7:30 AM EDT documented as of this encounter Plan of Treatment Scheduled Orders Name Type Priority Associated Diagnoses Orde r Schedule C-REACTIVE PROTEIN Lab Routine Effusion Of Left Knee ONCE for 1 Occurrences starting 03/29/2017 until 05/03/2017 CBC WITH AUTO DIFF Lab Routine Effusion Of Left Knee ONCE for 1 Occurrences starting 03/29/2017 until 05/03/2017 SEDIMENTATION RATE AUTOMATED Lab Routine Effusion Of Left Knee ONCE for 1 Occurrences starting 03/29/2017 until 05/03/2017 documented as of this encounter Visit Diagnoses Diagnosis Effusion of left knee Effusion of lower leg joint documented in this encounter Care Teams Nut Dehydrator Operator Relationship Specialty Start Date End Date Pee Sheridan MD PCP - General 06/16/11 documented as of this encounter
--- OUTSIDE RECORDS SUMMARY | 2017-05-30 13:59 | XMS_ITS | Encounter Summary ---
Author Organization [place] [address] Care Team Providers Care Game Engineer Name Role Phone Pee Sheridan MD Primary Care Provider [phone] Encounter Details Date Type Department Care Team (Late st Contact Info) Description 05/30/2017 1:59 PM EDT Hospital Encounter [facility] Referral Lab [address] [place] [address] Romulo Plasencia MD [address] [place] [address] Effusion of left knee Social History Tobacco [...] as of this encounter Plan of Treatment Not on file documented as of this encounter Results * SEDIMENTATION RATE AUTOMATED (05/31/2017 9:26 AM EDT) Sed Rate 3 0 - 20 mm/hr [facility] Blood specimen (specimen) 05/31/2017 9:26 AM EDT 05/31/2017 3:56 PM EDT us Romulo Plasencia MD HEMATOLOGY ORDERABLE S Final Result [facility] [address] [place] [address] * CBC WITH AUTO DIFF (05/31/2017 9:26 AM EDT) WBC 8.2 4.0 - 11.0 x10(3)/mcL [facility] RBC 5.43 4.30 - 5.81 x10(6)/mcL [facility] Hgb 15.7 13.5 - 17.1 gm/dL [facility] Hct 46.9 38.9 - 51.6 % [facility] MCV 86.5 82.5 - 99.8 fL [facility] MCH 28.9 27.0 - 34.3 pg [facility] MCHC 33.4 32.1 - 35.3 gm/dL [facility] RDW 14.4 11.5 - 15.0 % [facility] Platelet 189 144 - 423 x10(3)/mcL [facility] MPV 9.7 6.8 - 10.8 fL [facility] Blood specimen (specimen) 05/31/2017 9:26 AM EDT 05/31/2017 3:56 PM EDT us Romulo Plasencia MD HEMATOLOGY ORDERABLE S Final Result Performing Organization Address City/[facility]/ZIP Co de Phone Number [facility] [address] [place] [address] * C-REACTIVE PROTEIN (05/31/2017 9:26 AM EDT) CRP 1.23 <=5.00 mg/L [facility] Blood specimen (specimen) 05/31/2017 9:26 AM EDT 05/31/2017 3:55 PM EDT Romulo Plasencia MD CHEMISTRY ORDERABLES Final Result Performing Organization Address City/[facility]/[place] [address] documented in this encounter Visit Diagnoses Diagnosis Effusion of left knee Effusion of lower leg joint documented in this encounter Care Teams Game Engineer Relationship Specialty Start Date End Date Pee Sheridan MD PCP - General 06/16/11 documented as of this encounter
[2025-05-12 15:41] LABS: Hematocrit 43.4 % (42.0-52.0); Hemoglobin 14.9 g/dL (14.1-18.0); Immature Granulocytes % 0.2 %; Mean Corpuscular HGB Conc 34.3 g/dL (31.8-35.4); Mean Corpuscular Hemoglobin 29.1 pg (27.0-31.2); Mean Corpuscular Volume 84.8 fl (80-94); Nucleated Red Blood Cells % 0 %; Platelet Count 225 K/mm3 (142-424); Red Blood Count 5.12 M/mm3 (4.60-6.20); Red Cell Distribution Width-SD 40.0 fL; White Blood Count 6.0 K/mm3 (4.8-10.8)
[2025-05-12 17:02] LABS: Thyroid Stimulating Hormone 1.63 uIU/mL (0.465-4.68)
--- OUTSIDE RECORDS SUMMARY | 2025-05-14 07:52 | XMS_ITS | Clinical Summary ---
Author Organization [facility] Address [address] [place] [address] Phone Care Team Providers Care Hogshead Dumper Name Role Phone Pee Sheridan MD Primary Care Provider [phone] Allergies No known active allergies Medications amLODIPine (NORVASC) 10 mg Oral Tablet 3 Active hydroCHLOROthia zide (HYDRODIURIL) 25 mg Oral Tablet 3 Active oxyCODONE 10 mg Oral Tablet 3 Active losartan (COZAAR) 100 mg Oral Tablet 3 Active metoprolol (LOPRESSOR) 100 mg Oral Tablet 3 Active pantoprazole (PROTONIX) 40 mg Oral Tablet, Delayed Release (E.C.) 3 Active tiZANidine (ZANAFLEX) 4 mg Oral Tablet 3 Active [id number] atq-LjWm-KRh-as b-C (PLENVU) 140-9-5.2 gram Oral Powder in Packet, SequentialIndic ations:Screenin g for colon cancer Take 3 Packets by mouth Preprocedure for up to 1 dose. Take 1 kit per physician instructions 3 Packet 3 Active sodium,potassiu m,mag sulfates (SUPREP BOWEL PREP KIT) 17.5-3.13-1.6 gram Oral Recon SolnIndications :Screening for colon cancer Take 1 kit per physician instructions 354 mL 3 Active Active Problems Problem Noted Date Diagnosed Date Coronary atherosclerosis 05/31/2023 Status post cardiac catheterization 05/31/2023 Gastroesophageal reflux disease 08/08/2017 Basal cell carcinoma of skin 11/15/2016 Benign prostatic hyperplasia with urinary obstru ction 07/29/2016 Dyslipidemia 07/29/2016 Essential hypertension 07/29/2016 History of total left knee replacement 6 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 Surgical History Surgery Date Site/Laterality Comments CARDIAC CATHETERIZATION CHOLECYSTECTOMY Medical History Medical History Date Comments Throat cancer (HCC) AND TONGUE Social History Tobacco Use Types Packs/Day Years Used Date Smoking Tobacco: Never Smokeless Tobacco: Never Tobacco Cessation:Counseling Given: Not Answered Sex and Gender Information Value Date Recorded Sex Assigned at Not on file Legal Sex Male 8:35 PM EDT Gender Identity Not on file Sexual Orientation Not on file Obstetrics History Last Filed Vital Signs Vital Sign Reading Time Taken Comments Blood Pressure 149/90 03/02/2023 12:45 PM EDT Pulse 64 03/02/2023 12:45 PM EDT Temperature - - Respiratory Rate 16 03/02/2023 12:4 5 PM EDT Oxygen Saturation - - Inhaled Oxygen Concentration - - Weight 124.6 kg (274 lb 9.6 oz) 023 12:45 PM EDT Height 172.7 cm (5' 8 ) 03/02/2023 12:4 5 PM EDT Body Mass Index 41.75 03/02/2023 12:45 PM EDT Plan of Treatment Health Maintenance Due Date Last Done Comments Wellness Exam Medicare 01/21/1963 Hepatitis C Screening 1979 Cologuard 2006 Colon Cancer Screening 2006 Colonoscopy 2006 FIT 2006 Sigmoidoscopy 2006 Virtual Colonography 2006 Pneumococcal Vaccine 50+ (1 of 1 - PCV) 2011 Zoster (1 of 2) 2011 RSV or 60+ (1 - Risk 60-74 years 1-dose series) 2021 COVID-19 Vaccine (1 - 2023- season) 2024 Influenza Vaccine (#1) 2025 , 08/20/2020, 08/08/2017, Additional history exists DTaP/TDaP/Td (2 - Td or Tdap) 10/07/2025 10/07/2015 Hepatitis B Vaccine Aged Out No longe r eligible based on patient's age to complete this topic Meningococcal B Vaccine Aged Out No l onger eligible based on patient's age to complete this topic Insurance [place]ID [place] Member Subscriber Plan / Payer (Ef fective 2017-Present) Name:Raymundo Barnett Relation to Subscriber:Self Name:Raymundo Barnett Payer ID:Not on file Group ID:Not on file Type:Not on file Address: [place] [address] [place] [facility] * Guarantor: Raymundo Barnett Account Type Relation to Patient Date of Phone Billing Address [place] Personal Family Self Care Teams Hogshead Dumper Relationship Specialty Start Date End Date Pee Sheridan MD PCP - General 06/16/11
--- OUTSIDE RECORDS SUMMARY | 2025-05-14 07:52 | XMS_ITS | Clinical Summary ---
Author Organization [facility] Address [facility] [place] [address] Care Team Providers Care Air Twist Operator Name Role Phone Pee Sheridan MD Primary Care Provider [phone] Source Comments This information has been disclosed to you from confidential records protectedfrom disclosure by state law. You shall make no further disclosure of thisinformation without the specific, written, and informed release of theindividual to whom it pertains, or as otherwise permitted by law. A generalauthorization for the release of medical or other information is not sufficientfor the purposes of therelease of HIV test results or diagnoses. [id number] Allergies No known active allergies Medications amLODIPine (NORVASC) 10 MG tablet 10 mg. 4 Active atorvastatin (LIPITOR) 20 MG tablet 20 mg. 4 Active lisinopril (PRINIVIL,ZESTR IL) 40 MG tablet Take 40 mg by mouth 2 times a day. 4 Active metoprolol tartrate (LOPRESSOR) 100 MG tablet Take 100 mg by mouth 2 times a day. 4 Active celecoxib (CELEBREX) 200 MG capsule Take 1 capsule (200 mg total) by mouth daily. 30 capsule 0 5 Active docusate sodium (COLACE) 100 MG capsule Take 1 capsule (100 mg total) by mouth 2 times a day. 60 capsule 0 5 Active aspirin 325 MG tablet Take 1 tablet (325 mg total) by mouth daily. 30 tablet 0 5 Active acetaminophen-c odeine (TYLENOL #3) 300-30 mg per tabletIndicatio ns:Pain Take 1 tablet by mouth every 6 hours as needed for Pain. Indications: PAIN 60 tablet 0 5 Active methylPREDNISol one (MEDROL, CLAUDETTE,) 4 mg tablet follow package directions 21 Package 0 5 Active ibuprofen (ADVIL,MOTRIN) 800 MG tablet Take 1 tablet (800 mg total) by mouth 2 times a day with meals. 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 Family History Medical History Relation Comments Cancer Father Coronary artery disease Father [place] x3, P PM Heart failure Father Hypertension Father Hypertension Mother Relation Status Comments Father Alive Mother Alive Social History Tobacco Use Types Packs/Day Years Used Date Smoking Tobacco: Never Smokeless Tobacco: Former Chew Quit: 12/20/2010 Alcohol Use Standard Drinks/Week Comments No 0 (1 standard drink = 0.6 oz pur e alcohol) Sex and Gender Information Value Date Recorded Sex Assigned at Not on file Legal Sex Male 6:51 PM EST Gender Identity Not on file Sexual Orientation Not on file Last Filed Vital Signs Vital Sign Reading Time Taken Comments Blood Pressure 118/76 12/16/2014 10:55 AM EDT Pulse 95 10/24/2014 7:37 AM EST Temperature 36.6 C (97.8 F) 10/24/2014 7:37 AM EST Respiratory Rate 18 10/24/2014 7:37 AM EST Oxygen Saturation 96% 10/24/2014 7:37 AM EST Inhaled Oxygen Concentration 96% 10/24/2014 7 :37 AM EST Weight 99.8 kg (220 lb) 01/27/2015 10:05 AM EDT Height 172.7 cm (5' 8 ) 01/27/2015 10:05 AM EDT Body Mass Index 33.45 01/27/2015 10:05 AM EDT Plan of Treatment Not on file Medical Devices Implanted Type Area Cabin Furnishings Installer Device Identifier Shelf Expiration Date Model / Serial / Lot Cement Implanted:Qty: 1 on 10/22/2014 at [facility] Cement Left: Knee [employer] 06/22/2016 [id number] / / [id number] Baseplt Tib Electronic Publisher Marcie Ii 6 L - [id number] Implanted:Qty: 1 on 10/22/2014 by Tony Jimenez MD at [facility] Orthopedic Left: Knee [employer] 04/21/2024 [id number] / / [id number] Comp Pat Fem Resurf Gen 2 38mm - [id number] Implanted:Qty: 1 on 10/22/2014 by Tony Jimenez MD at [facility] Patella Left: Knee [employer] 04/21/2024 [id number] / / [id number] Fem Comp Flex Xlpe Sz 5-6 15mm - [id number] Implanted:Qty: 1 on 10/22/2014 by Tony Jimenez MD at [facility] Total Joint Left: Knee [employer] 11/22/2017 [id number] / / [id number] Comp Fem Electronic Publisher Sz 6 L Oxinium - [id number] Implanted:Qty: 1 on 10/22/2014 by Tony Jimenez MD at [facility] Total Joint Left: Knee [employer] 08/22/2024 [id number] / / [id number] Insurance Rosalba [place] [id number] [place] Advance Directives For more information, please contact: [phone] * Full Code (Latest Code Status on File) Date Activated Date Inactivated Comments 10/22/2014 3:40 PM 10/24/2014 2:34 PM Care Teams Air Twist Operator Relationship Specialty Start Date End Date Pee Sheridan MD [address] [place] [address] [place] [address] PCP - General Family Medicine 09/29/14
== END 2025-05-12 23:59 | disposition home or self-care (01) ==
LOC: LAB.DROPOF 05-14 07:50
PROVIDERS: PCP Family Medicine; Visit Provider Family Medicine
DX: E78.5 Hyperlipidemia, unspecified (principal); M54.9 Dorsalgia, unspecified; G89.29 Other chronic pain; I10 Essential (primary) hypertension; M15.4 Erosive (osteo)arthritis
CPT/HCPCS: 84443; 85025; 85651